=== PATIENT | male | born 1975 | race Caucasian/White ===

== ENCOUNTER 2021-04-03 10:41 | Outpatient (CLI) | payer BC, SELFPAY ==
--- NOTE | ~2021-04-03 | MR_ITS ---
EXAMINATION: MR knee RT wo con DATE: 04/03/2021 11:57 INDICATION: Right knee pain TECHNIQUE: Magnetic resonance imaging (MRI) of the right knee was performed without intravenous contr ast. Sequences included coronal PD-weighted FSE, coronal PD-weighted FS FSE, sagittal T2-weighted FS E, sagittal PD-weighted FS FSE and axial PD weighted fat saturated FSE. COMPARISON: None. FINDINGS: Medial compartment: Medial meniscus is normal. There is some superficial chondral irregularity along the weightbearing me dial femoral condyle. Partial thickness cartilage loss with smooth chondral surface along the posteri or aspect of the medial tibial plateau. Lateral compartment: Lateral meniscus is normal. Chondral surface regularity along the weightbearing lateral femoral condy le with partial thickness cartilage loss anteriorly. Shallow partial thickness chondral fissuring at the posterior aspect of the lateral tibial plateau. Patellofemoral compartment: Small region of partial-thickness chondral fissuring at the cephalad aspect of the trochlear groove a nd medial trochlea. Remaining cartilage is normal. Tiny marginal osteophytes are present. Ligaments and tendons: Posterior cruciate ligament is normal. Complete tear of the anterior cruciate ligament. The medial co llateral ligament and fibular collateral ligament complex are normal. The extensor mechanism is cristina l. The visualized medial and lateral hamstring tendons as well as the iliotibial band are normal. Fluid: Physiologic amount of fluid in the joint space. No loose osteochondral bodies identified. Osseous/other: Patchy red marrow reexpansion in the metaphyseal regions of the distal femur and proximal tibia and f ibula. Otherwise normal marrow signal with no fracture or pathologic marrow replacing process. IMPRESSION: 1. Complete anterior cruciate ligament tear. 2. Mild tricompartmental osteoarthritis with regions of shallow chondral fissuring/chondral surface i rregularity in all 3 compartments. Reviewed, dictated and finalized at location A. [facility] SE[facility]ETARY IMPRESSION: 1. Complete anterior cruciate ligament tear. 2. Mild tricompartmental osteoarthritis with regions of shallow chondral fissur ing/chondral surface irregularity in all 3 compartments.
== END 2021-04-03 10:42 | disposition home or self-care (01) ==
LOC: ANHIMG 10:47
PROVIDERS: PCP Emergency Medicine; Visit Provider Nurse Practitioner Family
DX: S83.511A Sprain of anterior cruciate ligament of right knee, initial encounter (principal); X58.XXXA Exposure to other specified factors, initial encounter; M17.11 Unilateral primary osteoarthritis, right knee
CPT/HCPCS: 73721

== ENCOUNTER 2021-09-11 10:33 | Outpatient (CLI) | payer BC, SELFPAY ==
--- NOTE | ~2021-09-11 | US_ITS ---
EXAMINATION: US thyroid DATE: 09/11/2021 11:33 INDICATION: Hypothyroidism. TECHNIQUE: Multiple ultrasound images of the thyroid were obtained. COMPARISON: None. FINDINGS: The right thyroid lobe measures 4.8 x 2.0 x 2.2 cm. The left thyroid lobe measures 3.4 x 1.6 x 1.4 c m. The thyroid demonstrates heterogeneous echogenicity. No discrete nodule. Vascularity is normal. IMPRESSION: 1. Heterogeneous thyroid, likely chronic lymphocytic (Jose Luis) thyroiditis. Reviewed, dictated and finalized at location B.
== END 2021-09-11 10:34 | disposition home or self-care (01) ==
PROVIDERS: PCP Emergency Medicine; Visit Provider Emergency Medicine
DX: E03.9 Hypothyroidism, unspecified (principal)
CPT/HCPCS: 76536

== ENCOUNTER 2021-10-31 11:25 | Inpatient (IN) | payer BC, SELFPAY ==
[2021-10-31] VITALS (13 sets, daily range): BP systolic 129–155; BP diastolic 74–97; PULSE 78–108; RESP 18–26; TEMP 36.7; O2SAT 89–100
--- NOTE | ~2021-10-31 | CT_ITS ---
EXAMINATION: CTA chest PE protocol DATE: 10/31/2021 16:03 INDICATION: Elevated d-dimer. Shortness of breath for one month. TECHNIQUE: Computed tomography angiography (CTA) of the chest was performed with 100 mL Omnipaque-350 intravenous contrast timed to evaluate the pulmonary arteries. Coronal maximum intensity projection 3D-reconstructions were created by the technologist. Automated exposure control and iterative reconst ruction technique were employed. Exam dose: 1112.15 mGy-cm total exam DLP. COMPARISON: 10/31/2021 AP and lateral chest FINDINGS: Soft tissue tissue and bone detail is limited by body habitus. There is moderate opacification of the pulmonary arteries and no apparent pulmonary embolism. No hilar or mediastinal mass lesion or lymphadenopathy. No thoracic aortic aneurysm or dissection is evident Cardiomegaly. No pericardial or pleural effusion. Minimal atelectasis in the lower lung zones, primarily on the left Normal morphology of the adrenal glands. No suspicious osteolytic or osteoblastic lesions. IMPRESSION: No pulmonary embolism is detected Cardiomegaly Reviewed, dictated and finalized at Location A. Reviewed, dictated and finalized at location A.
--- NOTE | ~2021-10-31 | XR_ITS ---
EXAMINATION: XR chest 2V DATE: 10/31/2021 12:29 INDICATION: Shortness of breath. TECHNIQUE: Frontal and lateral views of the chest were obtained on 3 radiographs. COMPARISON: Chest 2 views 07/31/2016, CT abdomen 01/14/2018 FINDINGS: Sensitivity is decreased by obesity. There is no pneumonia, pleural effusion, or pneumothor ax. The heart size is normal. Mediastinal lipomatosis is noted. IMPRESSION: 1. No acute cardiopulmonary disease. Reviewed, dictated and finalized at location A.
--- NOTE | ~2021-10-31 | US_ITS ---
EXAMINATION: US venous doppler [facility] DATE: 10/31/2021 15:14 INDICATION: Bilateral lower limb pain and swelling TECHNIQUE: Armas scale images without and with compression and Doppler images of the bilateral lower e xtremity veins were obtained. COMPARISON: None FINDINGS: The right common femoral vein, profunda femoral vein, femoral vein, popliteal vein, posterior tibial veins, and greater saphenous vein are patent. The peroneal veins are not well demonstrated due to bod y habitus. The left common femoral vein, profunda femoral vein, femoral vein, popliteal vein, posterior tibial v eins, and greater saphenous vein are patent. The peroneal veins are not well demonstrated due to body habitus. IMPRESSION: 1. Patent bilateral lower extremity veins. No evidence of deep venous thrombosis. Bilateral peroneal veins not evaluated due to body habitus. Reviewed, dictated and finalized at location F. IMPRESSION: 1. Patent bilateral lower extremity veins. No evidence of deep venous thrombosi s. Bilateral peroneal veins not evaluated due to body habitus.
--- NOTE | 2021-10-31 11:30 | ECG_ITS ---
Measurements Intervals [place] Rate: 88 P: 64 OR: 211 QRS: 14 QRSD: 106 T: 47 QT: 360 QTc: 437 Interpretive Statements SINUS RHYTHM WITH FIRST DEGREE AV BLOCK LEFTWARD AXIS LOW QRS VOLTAGE IN PRECORDIAL LEADS [QRS DEFLECTION < 1.0 mV IN CHEST LEADS] ABNORMAL ECG NO PREVIOUS ECG AVAILABLE FOR COMPARISON Electronically Signed On 11-01-2021 16:25:44 CDT by Deandre Andres M.D.
--- NOTE | 2021-10-31 12:08 | ED.SOB ---
HPI - SOB/Dyspnea General Chief Complaint: Shortness of Breath/Dyspnea Stated Complaint: retaining water Time Seen by Provider: 10/31/21 11:58 History of Present Illness HPI Narrative: The patient is a 46-year-old male with a history of type 2 diabetes, hypothyroidism, hypertension, morbid obesity, LEA presenting to the emergency department for evaluation of shortness of breath at rest. Patient reports significant lower extremity edema and reports that he feels loaded with fluid. Patient denies any chest pain, he does report mild congestion and nonproductive cough. He denies hemoptysis. He denies nausea, vomiting or abdominal pain. He does report abdominal distention. Patient reports his dyspnea worsens with exertion. He denies fever, chills, sore throat, recent sick contacts. He denies known history of COVID infection. Pt does sleep with CPAP at night and has been utilizing that. He has been compliant with his medications. He denies recent long car or air travel. He denies history of blood clot. No recent surgery or immobility. Related Data Home Medications Medication Instructions Recorded Confirmed atorvastatin 40 mg tablet 40 mg PO DAILY 02/11/21 08/29/21 metformin 500 mg tablet 500 mg PO DAILY 02/11/21 08/29/21 metoprolol tartrate 50 mg tablet 50 mg PO DAILY 02/11/21 08/29/21 Allergies Allergy/AdvReac Type Severity Reaction Status Date / Time No Known Drug Allergies Allergy Unknown Unknown Verified 08/29/21 11:02 Review of Systems Review of Systems: CONSTITUTIONAL: Denies fever, chills, or sweats. EYES: Denies visual changes, redness, or discharge. ENT: Denies rhinorrhea, congestion, sore throat, or otalgia. CARDIOVASCULAR: Denies chest pain, palpitations, reports bilateral lower extremity edema RESPIRATORY:Reports cough and dyspnea GASTROINTESTINAL: Denies abdominal pain, nausea, vomiting, or diarrhea. GENITOURINARY: Denies dysuria or hematuria. SKIN: Denies rash or itching. MUSCULOSKELETAL: Denies back pain, joint pain, or myalgia. NEUROLOGIC: Denies headache, numbness, or weakness. [facility] Past Medical History Medical History Bilateral knee pain BMI greater than 40 HLD (hyperlipidemia) HTN (hypertension) Left knee DJD Right knee DJD Right knee pain SOB (shortness of breath) Weight gain Surgical History Surgical History History of eye surgery Family History Family History Unknown Hypertension HLD (hyperlipidemia) Social History Social History Second hand tobacco smoke exposure: No Alcohol intake: never Exam Narrative: GENERAL: Awake, alert, able to converse in short sentences HEAD: Normocephalic, atraumatic. EYES: 2+ PERRLA and EOMI. ENT: Nares clear, no rhinorrhea or epistaxis. Mucous membranes moist. NECK: Supple. CHEST: Tachypneic, shallow respirations, crackles bilateral lobes, poor aeration bilaterally HEART: Regular rate, sinus rhythm ABDOMEN: Distention with edema of the abdominal wall EXTREMITIES: Normal range of motion. Bilateral lower extremity pitting edema 3+ up to the thighs SKIN: Warm, dry, no rash. NEURO:No focal deficits. Alert and oriented x3 Course Vital Signs Vital signs: Vital Signs Pulse Oximetry 95 10/31/21 12:31 Temperature 36.7 C 10/31/21 12:35 Pulse Rate 84 10/31/21 15:45 Respiratory Rate 21 H 10/31/21 15:45 Blood Pressure 145/94 H 10/31/21 12:46 Pulse Oximetry 98 10/31/21 15:45 Oxygen Delivery BiPAP 10/31/21 15:45 MDM - SOB/Dyspnea MDM Narrative Medical decision making narrative: Patient presented to the emergency department for evaluation of shortness of breath and concern for fluid overload given bilateral lower extremity edema that extends into the abdomen. Patient was noted to have oxygen satu
[2021-10-31 12:36] LABS: Base Excess ABG 2.6 mEq/l (+/-2.0); Carboxyhemoglobin 1.8 % THb (0-2.0); Fractional Inspired Oxygen 28 %; HCO3 ABG 31.5 mEq/l (22.0-26.0); Methemoglobin ABG 0.2 %THb (0-1.5); Oxygen Content ABG 19.9 %vol (16.0-22.0); Oxygen Saturation ABG 93.5 % (95.0-100.0); Oxyhemoglobin 92.4 % THb (90.0-100.0); PO2 ABG 77.1 mmHg (80.0-100.0); PO2 FiO2 Ratio Arterial Blood 2.75 %; Reduced Hemoglobin 5.6 %THb (0-5.0); Total Hemoglobin 15.3 g/dL (12.0-18.0)
[2021-10-31 12:37] LABS: Device NASAL CANNULA; Modified Allen's Test Pass; PCO2 ABG 67.4 mmHg (35.0-45.0); Site Drawn RIGHT RADIAL; pH ABG 7.287 (7.350-7.450)
[2021-10-31 13:38] LABS: Basophils Absolute Auto 0.1 K/mm3 (0.0-0.1); Basophils Percent Auto 0.6 % (0.2-1.2); Eosinophils Absolute Auto 0.2 K/mm3 (0-0.3); Eosinophils Percent Auto 2.4 % (0-4.4); Hemoglobin 14.3 g/dL (14.0-18.0); Immature Granulocyte Absolute 0.03 K/mm3 (0.00-0.031); Immature Granulocyte Percent A 0.3 % (0-0.5); Lymphocytes Absolute Auto 1.71 K/mm3 (0.9-3.2); Lymphocytes Percent Auto 17.5 % (18.3-44.2); Mean Corpuscular HGB Conc 30.4 g/dl (32-36); Mean Corpuscular Hemoglobin 28.1 pg (26-34); Mean Corpuscular Volume 92.5 fl (80-100); Mean Platelet Volume 10.1 fl (7.4-10.4); Monocytes Percent Auto 10.2 % (2.6-8.5); Neutrophils Absolute Auto 6.8 K/mm3 (1.3-6.7); Platelet Count Result 272 k/mm3 (150-375); Red Blood Count 5.08 M/mm3 (4.6-6.20); Red Cell Distribution Width 15.7 % (11.5-14.5); White Blood Count 9.8 K/mm3 (4.5-10.0)
[2021-10-31 13:45] LABS: SARS-CoV-2 RNA PCR Negative
[2021-10-31 13:47] LABS: Lactic Acid Reflex 1.4 mmol/L (0.7-2.0)
[2021-10-31 13:50] LABS: Alanine Aminotransferase 27 U/L (6-50); Albumin Level 3.8 g/dL (3.5-5.1); Alkaline Phosphatase 95 U/L (38-126); Anion Gap 5 mmol/L (8-16); Aspartate Amino Transferase 28 U/L (17-59); Bilirubin,Total 0.3 mg/dL (0.2-1.3); Blood Urea Nitrogen 10 mg/dL (9-20); Carbon Dioxide 32 mmol/L (22-30); Chloride 101 mmol/L (98-107); Estimated CRCL calculation 204 ml/min; Estimated Glomerular Filt Rate > 60; Glucose 101 mg/dL (65-110); Potassium 4.4 mmol/L (3.4-5.0); Sodium 138 mmol/L (137-145)
[2021-10-31 14:02] LABS: NT Pro B Type Natriuretic Pept 951 pg/mL (5-100); Troponin I < 0.012 ng/mL (0.000-0.034)
[2021-10-31] MEDS: FUROSEMIDE INJ 40 MG/4 ML VIAL 20 MG IV PUSH ×2 (15:03→23:04)
[2021-10-31 15:10] LABS: D Dimer 1.47 ug/mL (<0.48)
[2021-10-31 15:29] LABS: Alveolar/Arterial O2 Gradient 89.7 mmHg; Base Excess ABG 2.9 mEq/l (+/-2.0); Carboxyhemoglobin 1.7 % THb (0-2.0); Fractional Inspired Oxygen 32 %; HCO3 ABG 30.2 mEq/l (22.0-26.0); Methemoglobin ABG 0.2 %THb (0-1.5); Oxygen Saturation ABG 93.3 % (95.0-100.0); Oxyhemoglobin 92.2 % THb (90.0-100.0); PO2 ABG 71.8 mmHg (80.0-100.0); PO2 FiO2 Ratio Arterial Blood 2.24 %; Reduced Hemoglobin 5.9 %THb (0-5.0); Total Hemoglobin 15.4 g/dL (12.0-18.0); pH ABG 7.342 (7.350-7.450)
[2021-10-31 15:30] LABS: Device NASAL CANNULA; Modified Allen's Test Pass; Site Drawn RIGHT RADIAL
[2021-10-31 17:24] LABS: Troponin I < 0.012 ng/mL (0.000-0.034)
--- NOTE | 2021-10-31 17:25 | PM.IMHP ---
H&P: HPI History of Present Illness Date/Time: 10/31/21 17:25 Chief Complaint: Shortness of breath and leg swelling. Narrative: This is a very pleasant 46-year-old male with hypertension, hyperlipidemia, hypothyroidism, sleep apnea, and prediabetes presented to the emergency department from home for evaluation shortness of breath and leg swelling. He has had problems with his weight for almost 10 years although it has not really limited his daily activities until the last 6 months. 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 Over the past 1 month he has developed orthopnea and pitting edema into the abdomen and he also reports daytime somnolence, vivid dreams, and occasional fogginess though no overt confusion. He falls asleep with his CPAP on however sometime during the middle the night he ends up taking it off due to claustrophobia and anxiety. On arrival to the ER, his SpO2 was 89% on room air. ABG showed a pH of 7.287 a pCO2 of 67.4 for which he was started on BiPAP, with improvement in his blood gases. At the time of my evaluation he is sitting up eating dinner and is feeling a bit better. He has no complaints at this time. Review of Systems Review of Systems: Twelve systems were reviewed. No fever, chills, or sweats. No recent cold or flu symptoms. No cough or wheeze. No known history of cardiovascular or pulmonary disease. No history of venous thromboembolism. He was recently started on glimepiride though to his knowledge he is still classified as a prediabetic. He does not check his glucose often at home but he has never seen a number over 200. No blurry vision, polydipsia, or polyuria. Except as documented, all other systems were reviewed and are negative. [facility] Past Medical History Medical History (Updated 10/31/21 @ 20:57 by Mariely Anthony PA-C) Degenerative joint disease of knee Hyperlipidemia Hypertension Hypothyroidism Obstructive sleep apnea on CPAP Prediabetes Surgical History Surgical History (Updated 10/31/21 @ 20:53 by Mariely Anthony PA-C) History of myringoplasty History of plastic surgery Repair right orbital fracture. Family History Family History Unknown Hypertension HLD (hyperlipidemia) Social History Social History (Updated 10/31/21 @ 20:54 by Mariely Anthony PA-C) Social History: Surrogate decision maker: Shirley Price, mother. Code status: Full code. Smoking status: Never smoker Second hand tobacco smoke exposure: Yes Alcohol intake: never Substance use type: does not use Additional living arrangements comments: Lives in [place]. Mother lives at home with him. Additional occupation/education comments: [employer]. Spiritual care concerns: No Meds Home Medications and Allergies Home Medications Medication Instructions Recorded Confirmed Type metformin 500 mg tablet 1,000 mg PO BIDWM 02/11/21 10/31/21 History metoprolol tartrate 50 mg tablet 50 mg PO BIDWM 02/11/21 10/31/21 History glimepiride 1 mg tablet (Amaryl) 1 mg PO DAILY 10/31/21 10/31/21 History irbesartan 150 mg tablet 150 mg PO DAILY 10/31/21 10/31/21 History levothyroxine 25 mcg tablet 75 mcg PO DAILY 10/31/21 10/31/21 History rosuvastatin 20 mg tablet 20 mg PO DAILY 10/31/21 10/31/21 History Allergies Allergy/AdvReac Type Severity Reaction Status Date / Time No Known Drug Allergies Allergy Unknown Unknown Verified 08/29/21 11:02 Vital Signs Vital Signs - 24 hr 10/31/21 12:35 10/31/21 12:31 10/31/21 12:35 Temperature 98.0 F Pulse Rate 95 Respiratory Rate 20 Blood Pressure 155/97 H 155/97 H Pulse Oximetry 89 L 95 95 Oxygen Delivery Room Air 10/31/21 12:45 10/31/21 12:46 10/31/21 13:00 Temperature Pulse Rate 78 88 Respiratory Rate
[2021-10-31 20:44] LABS: Troponin I < 0.012 ng/mL (0.000-0.034)
[2021-11-01] VITALS (18 sets, daily range): BP systolic 105–144; BP diastolic 50–97; PULSE 84–107; RESP 16–21; TEMP 36.4–37.2; O2SAT 86–97
[2021-11-01 04:46] LABS: Hemoglobin A1C 7.3 % (<5.7)
[2021-11-01 05:19] LABS: Alveolar/Arterial O2 Gradient 57.4 mmHg; Base Excess ABG 5.3 mEq/l (+/-2.0); Carboxyhemoglobin 1.9 % THb (0-2.0); Fractional Inspired Oxygen 32 %; Methemoglobin ABG 0.3 %THb (0-1.5); Oxygen Content ABG 19.4 %vol (16.0-22.0); Oxygen Saturation ABG 90.9 % (95.0-100.0); PO2 ABG 71.8 mmHg (80.0-100.0); PO2 FiO2 Ratio Arterial Blood 2.24 %; Reduced Hemoglobin 7.8 %THb (0-5.0); Total Hemoglobin 15.3 g/dL (12.0-18.0)
[2021-11-01 05:21] LABS: Device NASAL CANNULA; Modified Allen's Test Pass; PCO2 ABG 84.6 mmHg (35.0-45.0); Site Drawn LEFT RADIAL; pH ABG 7.247 (7.350-7.450)
--- NOTE | 2021-11-01 05:30 | PC.NURSE ---
pt. has only worn bipap for three hours tonight. pt. states he can not tolerate the bipap any longer. rn and rt both have talked to the pt. several times about the importance of wearing the bipap. Dr. Campo and Mariely haynes also notified of pt's refusal to wear bipap. pt. also stated that he can not tolerate to wear his cpap at home.
[2021-11-01 05:43] LABS: Anion Gap 2 mmol/L (8-16); Blood Urea Nitrogen 10 mg/dL (9-20); Calcium 8.3 mg/dL (8.4-10.2); Carbon Dioxide 39 mmol/L (22-30); Chloride 98 mmol/L (98-107); Estimated CRCL calculation 180 ml/min; Estimated Glomerular Filt Rate > 60; Glucose 125 mg/dL (65-110); Magnesium 1.9 mg/dL (1.6-2.3); Potassium 4.3 mmol/L (3.4-5.0); Sodium 139 mmol/L (137-145)
--- NOTE | 2021-11-01 06:00 | ECHO_ITS ---
Patient Info Name: Riaz Morgan Age: 46 years : 1975 Gender: Male Ht: 68 in Wt: 472 lbs BSA: 3.35 m2 HR: 102 bpm BP: 134 / 71 mmHg Heart Rhythm: Sinus Rhythm Exam Date: 11/01/2021 7:35 AM Exam Location: [facility] Patient Status: Inpatient Admit Date: 10/31/2021 Staff Ordering Physician: Marissa Tapia MD Check Embosser: Jewel Dodson, SIMON, RT Attending Provider: Jen Fenton MD Referring Physician: Willie NYE; Exam Type: CA echo dop color flow w con Study Info Indications J96.91 - Respiratory failure, unspecified with hypoxia Complete two-dimensional, color flow and Doppler transthoracic echocardiogram is performed with contrast to opacify the left ventricle and to improve the deliniation of the left ventricle endocardial borders. Summary 1. Technically difficult echocardiogram with poor image quality even after contrast was injected. 2. Grossly normal left ventricular size and systolic contractility as judged imaging following contrast injection. 3. Poorly visualized cardiac valves but no Doppler regurgitant lesions were seen. 4. Grossly normal right ventricular size and systolic function again poorly visualized. Left Ventricle Left ventricular chamber dimension is normal. Left ventricular systolic function is normal, estimated at 55-60%. The left ventricular diastolic function is grade I diastolic dysfunction. Right Ventricle Right ventricular chamber dimension is normal. Left Atria Left atrial chamber dimension is normal. Right Atria Right atrial chamber dimension is not well visualized. Aortic Valve The aortic valve is not well visualized. There is no aortic valve stenosis. Pulmonic Valve The pulmonic valve is not well visualized. Mitral Valve The mitral valve has normal leaflets. There is no mitral valve regurgitation. Tricuspid Valve The tricuspid valve leaflets are not well visualized. Pericardium/Pleural The pericardium appears normal. Aorta The aortic root size at the sinus of Valsalva is normal. Left Ventricular Outflow Tract Name Value Normal LVOT 2D LVOT Diameter 2.14 cm LVOT Doppler LVOT Peak Gradient 3 mmHg LVOT Mean Gradient 1 mmHg LVOT VTI 13.94 cm LVOT VTI/AV VTI Ratio 0.79 LVOT Stroke Volume 50.05 ml LVOT CO 5.62 l/min LVOT CI 1.68 L/min/m2 Mitral Valve Name Value Normal MV Doppler MV Decel [place] 366.10 cm/s2 MV PHT 0 s MV Area (PHT) 3.61 cm2 4.00-5.00 MV Diastolic Function MV E Peak Velocity 76.
[2021-11-01] MEDS: LEVOTHYROXINE SODIUM 75 MCG TABLET PO (06:08)
[2021-11-01] MEDS: PERFLUTREN LIPID MICROSPHERES 1.5 ML VIAL DILUTED TO 10 ML TOTAL VOLUME IV PUSH (08:06)
--- NOTE | 2021-11-01 08:07 | IVDEFINITY ---
Prior to administration of IV Definity the patient was educated on the risks and benefits of the imaging enhancing agent including potential adverse side effects. The patient verbalized understanding. Allergies were verified. No exclusion criteria were identified and at least one of the following inclusion criteria were met: 1) physician request, 2) patient technically difficult to image (per the [place] [employer] Echocardi[employer] guidelines of two or more segments not discernable within the apical view), or 3) questionable left ventricular function. ?
[2021-11-01 08:16] LABS: Glucose Point of Care 118 mg/dl (65-105)
--- NOTE | 2021-11-01 08:17 | PM.IMPN ---
Progress Note: A&P Assessment and Plan (1) Acute respiratory failure with hypoxia and hypercarbia: Code(s): J96.01 - Acute respiratory failure with hypoxia; J96.02 - Acute respiratory failure with hypercapnia Status: Acute Assessment and Plan: Likely due to volume overload, untreated LEA and obesity hypoventilation. CTA chest negative for PE. BNP elevated 951. Will treat volume overload to improve breathing. I/O not being recorded. -Demar for accurate I&Os -Continue furosemide 20 mg IV BID -Appreciate recommendations from Pulmonology - Dr. Schofield -Eleuterio leary -Continue bipap at night -Wean oxygen as tolerated during the day (2) (HFpEF) heart failure with preserved ejection fraction: Code(s): I50.30 - Unspecified diastolic (congestive) heart failure Status: Acute Assessment and Plan: Volume overload. Already on BB and ARB. (3) Obesity hypoventilation syndrome: Code(s): E66.2 - Morbid (severe) obesity with alveolar hypoventilation Status: Acute Assessment and Plan: Management as noted above. (4) Hypothyroidism: Code(s): E03.9 - Hypothyroidism, unspecified Status: Acute Assessment and Plan: TSH 5. Will check free t4. Continue home levothyroxine. (5) Hypertension: Code(s): I10 - Essential (primary) hypertension Status: Acute Assessment and Plan: Continue metoprolol and irbesartan. (6) Hyperlipidemia: Code(s): E78.5 - Hyperlipidemia, unspecified Status: Acute Assessment and Plan: Continue rosuvastatin. (7) Diabetes: Code(s): E11.9 - Type 2 diabetes mellitus without complications Status: Acute Assessment and Plan: New onset. Previously had prediabetes per patient. A1C 7.3. May benefit from SGLT2 to be started. For now holding metformin x 48 hours because of CTA but will resume. -SSI w/ POC glucose Subjective Date/time seen: 11/01/21 08:17 Patient says he has noticed he feels like he is wearing a pair of pants 4-5 sizes too small saying his legs feel very tight and swollen. Says he was told he has prediabetes and was on medication for this. Says the doctor told him not to use furosemide because it might cause his prediabetes to become diabetes, which is why furosemide was not started at his last PCP visit about two weeks ago. Patient says he has shortness of breath as well but reports this has improved with adjustment of the BIPAP. Review of Systems Cardiovascular: Cardiovascular: Reports leg edema Respiratory: Respiratory: Reports dyspnea Exam Narrative: GENERAL: NAD, cooperative HEENT: Normocephalic, atraumatic, anicteric NECK:Supple CV: Normal S1, S2, RRR, No MRG RESP: Bibasilar crackles - distant breath sounds Abdomen: Soft, non-tender, non-distended, EXTREMITIES: Warm and well perfused, no clubbing, cyanosis. Tense edema to bilateral LE. SKIN: warm, dry and intact. NEURO: CN 2-12 grossly intact Objective Data Vital Signs Vital Signs: Vital Signs - 24 hr 10/31/21 12:35 10/31/21 12:31 10/31/21 12:35 Temperature 98.0 F Pulse Rate 95 Respiratory Rate 20 Blood Pressure 155/97 H 155/97 H Pulse Oximetry 89 L 95 95 Oxygen Delivery Room Air Oxygen Flow Rate 10/31/21 12:45 10/31/21 12:46 10/31/21 13:00 Temperature Pulse Rate 78 88 Respiratory Rate 18 20 26 H Blood Pressure 145/94 H Pulse Oximetry 95 92 98 Oxygen Delivery BiPAP Oxygen Flow Rate 10/31/21 15:45 10/31/21 18:00 10/31/21 16:50 Temperature Pulse Rate 84 98 Respiratory Rate 21 H Blood Pressure Pulse Oximetry 98 98 Oxygen Delivery BiPAP Nasal Cannula Oxygen Flow Rate 3 10/31/21 16:54 10/31/21 20:00 10/31/21 20:00 Temperature 98.0 F Pulse Rate 96 95 96 Respiratory Rate 20 Blood Pressure 155/84 H Pulse Oximetry 100 Oxygen Delivery Oxygen Flow Rate 10/31/21 20:00 10/31/21 22:00 10/31/21 22:30 Te
[2021-11-01 09:46] LABS: Free T4 Free Thyroxine 1.05 ng/mL (0.78-2.19)
[2021-11-01] MEDS: IRBESARTAN 150 MG TABLET PO (10:43)
[2021-11-01] MEDS: ROSUVASTATIN 10 MG TABLET 20 MG PO (10:44)
[2021-11-01] MEDS: GLIMEPIRIDE 1 MG TABLET PO (10:44)
[2021-11-01] MEDS: METOPROLOL TARTRATE 50 MG TAB PO ×2 (10:45→17:50)
[2021-11-01] MEDS: ENOXAPARIN 40 MG/0.4 ML SYRINGE SUB-Q (10:45)
[2021-11-01] MEDS: FUROSEMIDE INJ 40 MG/4 ML VIAL 20 MG IV PUSH ×2 (10:46→17:49)
[2021-11-01 12:01] LABS: Glucose Point of Care 166 mg/dl (65-105)
--- NOTE | 2021-11-01 12:11 | PM.CNPUL ---
Assessment and Plan Assessment and plan (1) Obesity hypoventilation syndrome: Code(s): E66.2 - Morbid (severe) obesity with alveolar hypoventilation Status: Acute Assessment and Plan: Patient is morbidly obese with a BMI of 71.7, he has a daytime blood gas of 7.29// on 2 L nasal cannula serum bicarbonate of 32. He has obesity hypoventilation syndrome. There is no evidence of concurrent COPD, pneumonia, pulmonary edema. His TSH is elevated I will check a free T4 he is already on Synthroid. Patient would benefit from noninvasive ventilation to prevent further deterioration and prevent hospitalization in the future. He could not tolerate BiPAP as said he had to take the machine off. He tells me the BiPAP was uncomfortable and I placed him on a noninvasive ventilator with AVAPS mode and adjusted his settings to comfort. I ended up using AVAPS rate of 16, tidal volume 500, EPAP 8, minimal inspiratory pressure 9, maximal inspiratory pressure 25, inspiratory time 1.2, rise a 5 [address] and 30%. This resulted in tidal volumes of 537 and a peak inspiratory pressure of 11. I have initiated home noninvasive ventilation with an AVAPS mode with the career development coordinator. I will place him on hospital settings using those listed above or home unit and check an overnight oximetry and a blood gas prior to removal to assess his oxygenation and ventilation. Agree with aggressively diuresing patient with IV Lasix as tolerated by his cardiac and renal systems. Discussed with Dr. Eller. Will follow with you. History of Present Illness History of Present Illness Consult date: 11/01/21 Chief complaint: Hypoxic Respiratory Failure Narrative: 11/01/2021: This is a new pulmonary consult for acute on chronic hypoxic and hypercarbic respiratory failure. 46-year-old man with morbid obesity (BMI 71.7), Obstructive sleep apnea on CPAP, hypothyroidism, diabetes, hypertension who presented to [facility] on 10/31/2021 with 2 months worsening edema and one-month worsening dyspnea on exertion. the patient tells me that he was diagnosed with obstructive sleep apnea with a home sleep study approximately 2 years ago through his primary physician Dr. Danilo capellan. He states that he does wear the machine but does not know his settings. His DME company is [employer]. At times he is intolerant to the machine and He cannot sleep with the machine on. He uses a fullface mask. at times he has run out of supplies and been unable to replace his. Patient has noted increasing lower extremity and abdominal wall edema over the last 2 months and he tells me over the last month he has worsening dyspnea on exertion. He denies any fever, chills, cough, rigors, phlegm production, hemoptysis or chest pain. The patient presented to the emergency department and had a white blood cell countof 9.8, creatinine of 0.7, troponins negative x3, BNP 951, TSH 5.39, D-dimer of 1.47, chest x-ray with no active disease. CT angiogram of the chest with no PE but cardiomegaly. Patient is COVID RT PCR test was negative. Patient had lower extremity Dopplers which were negative. Patient's initial blood gas on 2 L nasal cannula 7.29/67/77 and his serum bicarbonate was 32. Repeat blood gas on 3 L nasal cannula with a pH of 7.34/57/72. patient was empirically placed on BiPAP 15/5 any wore that for few hours. Repeat blood gas this morning on 3 L nasal cannula 7.25/85/72. I was consulted. Patient tells me he has never tobacco user. He is exposed to secondhand smoke through his mother. He does not smoke marijuana but occasionally takes gummy bears for the last 1 and half months for his chronic knee pain. 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 Patient did work in [place] in the [employer] and was exposed to some dust. 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
--- NOTE | 2021-11-01 14:24 | PCRCNOTE ---
Trilogy unit being arranged with [facility] [phone]. Device to be set-up this evening at the hospital.
[2021-11-01 16:21] LABS: Glucose Point of Care 155 mg/dl (65-105)
[2021-11-01 19:58] LABS: Glucose Point of Care 136 mg/dl (65-105)
[2021-11-01] MEDS: ACETAMINOPHEN/ASPIRIN/CAFFEINE 250-250-65 MG TABLET 1 TABLET PO (21:55)
--- NOTE | 2021-11-01 22:32 | PC.NURSE ---
Pt set up with trilogy unit with 2?L O2 bleed in per RT. RT set up on apnea link study.
[2021-11-02] VITALS (19 sets, daily range): BP systolic 107–142; BP diastolic 41–79; PULSE 87–105; RESP 18–28; TEMP 36.5–37; O2SAT 86–98
[2021-11-02 05:16] LABS: Alveolar/Arterial O2 Gradient 64.6 mmHg; Base Excess ABG 10.7 mEq/l (+/-2.0); Fractional Inspired Oxygen 30 %; HCO3 ABG 39.2 mEq/l (22.0-26.0); Oxygen Content ABG 19.5 %vol (16.0-22.0); Oxygen Saturation ABG 92.2 % (95.0-100.0); Oxyhemoglobin 91.1 % THb (90.0-100.0); PO2 ABG 67.5 mmHg (80.0-100.0); PO2 FiO2 Ratio Arterial Blood 2.25 %; Total Hemoglobin 15.2 g/dL (12.0-18.0); pH ABG 7.369 (7.350-7.450)
[2021-11-02 05:18] LABS: Modified Allen's Test Pass; PCO2 ABG 69.6 mmHg (35.0-45.0); Site Drawn RIGHT RADIAL
[2021-11-02 05:19] LABS: Non-Invasive Vent Rate 16 /MIN
[2021-11-02 05:20] LABS: Non-Invasive Expiratory Pressure 8 CMH2O
[2021-11-02 05:22] LABS: Device NON-INVASIVE VENT
[2021-11-02] MEDS: LEVOTHYROXINE SODIUM 75 MCG TABLET PO (06:10)
[2021-11-02] MEDS: FUROSEMIDE INJ 40 MG/4 ML VIAL 20 MG IV PUSH ×2 (08:22→17:31)
[2021-11-02] MEDS: ENOXAPARIN 40 MG/0.4 ML SYRINGE SUB-Q (08:23)
[2021-11-02] MEDS: METOPROLOL TARTRATE 50 MG TAB PO ×2 (08:24→17:30)
[2021-11-02] MEDS: ROSUVASTATIN 10 MG TABLET 20 MG PO (08:24)
[2021-11-02] MEDS: GLIMEPIRIDE 1 MG TABLET PO (08:24)
[2021-11-02] MEDS: IRBESARTAN 150 MG TABLET PO (08:25)
--- NOTE | 2021-11-02 08:37 | PM.IMPN ---
Progress Note: A&P Assessment and Plan (1) Acute respiratory failure with hypoxia and hypercarbia: Code(s): J96.01 - Acute respiratory failure with hypoxia; J96.02 - Acute respiratory failure with hypercapnia Status: Acute Assessment and Plan: Likely due to volume overload, untreated LEA and obesity hypoventilation. CTA chest negative for PE. BNP elevated 951. Will treat volume overload to improve breathing. I/O not being recorded. Significant UOP yesterday with improvement in exam, but I&Os are positive. Will add a 1.2L fluid restriction today. Clinically improved. -Demar for accurate I&Os -Continue furosemide 20 mg IV BID -Appreciate recommendations from Pulmonology - Dr. Schofield -Eleuterio leary -Continue bipap at night -Wean oxygen as tolerated during the day (2) (HFpEF) heart failure with preserved ejection fraction: Code(s): I50.30 - Unspecified diastolic (congestive) heart failure Status: Acute Assessment and Plan: Volume overload. Already on BB and ARB. Volume overload is improving with diuresis. Will continue with furosemide. (3) Obesity hypoventilation syndrome: Code(s): E66.2 - Morbid (severe) obesity with alveolar hypoventilation Status: Acute Assessment and Plan: Management as noted above. (4) Hypothyroidism: Code(s): E03.9 - Hypothyroidism, unspecified Status: Acute Assessment and Plan: TSH 5. Free t4 1.05. Continue home medication. (5) Hypertension: Code(s): I10 - Essential (primary) hypertension Status: Acute Assessment and Plan: Continue metoprolol and irbesartan. (6) Hyperlipidemia: Code(s): E78.5 - Hyperlipidemia, unspecified Status: Acute Assessment and Plan: Continue rosuvastatin. (7) Diabetes: Code(s): E11.9 - Type 2 diabetes mellitus without complications Status: Acute Assessment and Plan: New onset. Previously had prediabetes per patient. A1C 7.3. May benefit from SGLT2 to be started. For now holding metformin x 48 hours because of CTA but will resume. -SSI w/ POC glucose -informatics educator ordered Subjective Date/time seen: 11/02/21 08:37 Patient says he breathing is better this morning. Also says he can now see wrinkles in his feet and feels that his leg and foot swelling have improved. Benz placed for I&Os last night Exam Narrative: GENERAL: NAD, cooperative HEENT: Normocephalic, atraumatic, anicteric NECK:Supple CV: Normal S1, S2, RRR, No MRG RESP: Clear to auscultation bilaterally, distant breath sounds Abdomen: Soft, non-tender, non-distended, EXTREMITIES: Warm and well perfused, no clubbing, cyanosis. Less bilateral ankle edema. SKIN: warm, dry and intact. NEURO: CN 2-12 grossly intact Objective Data Vital Signs Vital Signs: Vital Signs - 24 hr 11/01/21 10:45 11/01/21 12:00 11/01/21 12:00 Temperature 97.6 F Pulse Rate 105 H 92 Respiratory Rate 16 Blood Pressure 136/81 Pulse Oximetry 93 94 Oxygen Delivery Nasal Cannula Oxygen Flow Rate 5 11/01/21 10:00 11/01/21 12:00 11/01/21 14:00 Temperature Pulse Rate 92 84 90 Respiratory Rate Blood Pressure Pulse Oximetry Oxygen Delivery Oxygen Flow Rate 11/01/21 16:00 11/01/21 17:50 11/01/21 16:00 Temperature 98.9 F Pulse Rate 95 96 Respiratory Rate 17 Blood Pressure 120/64 Pulse Oximetry 91 96 Oxygen Delivery BiPAP Oxygen Flow Rate 50 11/01/21 16:00 11/01/21 18:00 11/01/21 20:00 Temperature 98.6 F Pulse Rate 97 86 89 Respiratory Rate 18 Blood Pressure 116/68 Pulse Oximetry 96 Oxygen Delivery Oxygen Flow Rate 11/01/21 20:00 11/01/21 20:00 11/01/21 21:31 Temperature Pulse Rate 89 93 96 Respiratory Rate 18 Blood Pressure Pulse Oximetry 96 Oxygen Delivery Nasal Cannula Oxygen Flow Rate 4 11/01/21 22:48 11/02/21 00:00 11/02/21 00:00 Temperature
--- NOTE | 2021-11-02 09:29 | PM.PNPUL ---
Progress Note: A&P Assessment and Plan (1) Obesity hypoventilation syndrome: Code(s): E66.2 - Morbid (severe) obesity with alveolar hypoventilation Status: Acute Assessment and Plan: 11/01 Patient is morbidly obese with a BMI of 71.7, he has a daytime blood gas of 7.29/67/77 on 2 L nasal cannula serum bicarbonate of 32. He has obesity hypoventilation syndrome. There is no evidence of concurrent COPD, pneumonia, pulmonary edema. His TSH is elevated I will check a free T4 he is already on Synthroid. Patient would benefit from noninvasive ventilation to prevent further deterioration and prevent hospitalization in the future. He could not tolerate BiPAP as said he had to take the machine off. He tells me the BiPAP was uncomfortable and I placed him on a noninvasive ventilator with AVAPS mode and adjusted his settings to comfort. I ended up using AVAPS rate of 16, tidal volume 500, EPAP 8, minimal inspiratory pressure 9, maximal inspiratory pressure 25, inspiratory time 1.2, rise a 5 which is are slow ST and 30%. This resulted in tidal volumes of 537 and a peak inspiratory pressure of 11. I have initiated home noninvasive ventilation with an AVAPS mode with the plan coordinator. I will place him on hospital settings using those listed above or home unit and check an overnight oximetry and a blood gas prior to removal to assess his oxygenation and ventilation. Agree with aggressively diuresing patient with IV Lasix as tolerated by his cardiac and renal systems. [facility] was able to set him up with a home trilogy unit and we placed him on a rate of 16, tidal volume 500, EPAP minimum 5, EPAP maximum 18, pressure support minimum 5, pressure support maximum 15 with 2.5 L bleed in. 11/02 Patient wore his home machine and said that he slept well and is feeling more refreshed this morning. Denies fever, chills, hemoptysis or chest pain. Patient does have some phlegm production and is able to expectorates this. Patient had a blood gas at the end of the night on these settings with a pH of 7.37/70/68. Patient had an overnight oximetry on the settings with a average saturation 86%, lowest saturation 79%. Time with saturation less than or equal to 88% was 322 minutes. cumulative diuresis 910 mL since admission. Patient states his edema is better. I have increased his respiratory rate to 20 and increased his tidal volume to 550. I will place him on 5 L bleed in tonight on his home unit and check an overnight oximetry on the home unit with 5 L bleed in and check a blood gas prior to removal on the higher tidal volume and high respiratory rate. Agree with aggressive diuresis. Need to mobilize patient out of bed. Patient has had no bowel movement in 48 hours and states he will try today. Will follow with you. Subjective Date/time seen: 11/02/21 09:29 Interval history: 11/01/2021:? This is a new pulmonary consult for acute on chronic hypoxic? and hypercarbic respiratory failure. ?46-year-old man with morbid obesity (BMI 71.7), Obstructive sleep apnea on CPAP, hypothyroidism, diabetes, hypertension who presented to [facility] Emergency Department on 10/31/2021 with 2 months worsening edema and one-month worsening dyspnea on exertion.? the patient tells me that he was diagnosed with obstructive sleep apnea with a home sleep study approximately 2 years ago through his primary physician Dr. Danilo capellan.? He states that he does wear the machine but does not know his settings.? His DME company is [employer].? At times he is intolerant to the machine and ? He cannot sleep with the machine on.? He uses a fullface mask. at times he has run out of supplies and been unable to replace his.? ? Patient has noted increasing lower extremity and abdominal wall edema over the last 2 months and? he tells me over the last month he has worsening dyspnea on exertion.? He denies any fever, chills, cough, rigors,
[2021-11-02 09:43] LABS: Blood Urea Nitrogen 13 mg/dL (9-20); Calcium 8.5 mg/dL (8.4-10.2); Carbon Dioxide > 40 mmol/L (22-30); Chloride 92 mmol/L (98-107); Estimated CRCL calculation 161 ml/min; Estimated Glomerular Filt Rate > 60; Glucose 94 mg/dL (65-110); Potassium 4.1 mmol/L (3.4-5.0); Sodium 138 mmol/L (137-145)
[2021-11-02 11:15] LABS: Glucose Point of Care 84 mg/dl (65-105)
[2021-11-02 12:15] LABS: Glucose Point of Care 163 mg/dl (65-105)
[2021-11-02 17:02] LABS: Glucose Point of Care 110 mg/dl (65-105)
[2021-11-02] MEDS: TAMSULOSIN HCL 0.4 MG CAPSULE PO (17:30)
[2021-11-02] MEDS: POTASSIUM CHLORIDE 20 MEQ TABLET 40 MEQ PO (17:30)
[2021-11-02 18:31] LABS: Blood Urea Nitrogen 13 mg/dL (9-20); Calcium 8.4 mg/dL (8.4-10.2); Carbon Dioxide > 40 mmol/L (22-30); Chloride 93 mmol/L (98-107); Estimated CRCL calculation 180 ml/min; Estimated Glomerular Filt Rate > 60; Glucose 152 mg/dL (65-110); Potassium 4.2 mmol/L (3.4-5.0); Sodium 134 mmol/L (137-145)
[2021-11-02 20:57] LABS: Glucose Point of Care 157 mg/dl (65-105)
[2021-11-02] MEDS: ACETAMINOPHEN/ASPIRIN/CAFFEINE 250-250-65 MG TABLET 1 TABLET PO (22:52)
--- NOTE | 2021-11-02 23:43 | PC.NURSE ---
Apnea link study applied to Pt per RT and Pt placed on trilogy unit with a 5L O2 bleed in.
[2021-11-03] VITALS (15 sets, daily range): BP systolic 117–134; BP diastolic 61–83; PULSE 91–105; RESP 20–26; TEMP 36.2–37.6; O2SAT 92–96; BMI 67.7
[2021-11-03 05:12] LABS: Base Excess ABG 9.1 mEq/l (+/-2.0); Fractional Inspired Oxygen 40 %; HCO3 ABG 37.3 mEq/l (22.0-26.0); Oxygen Content ABG 21.1 %vol (16.0-22.0); Oxygen Saturation ABG 94.2 % (95.0-100.0); Oxyhemoglobin 92.5 % THb (90.0-100.0); PO2 ABG 74.3 mmHg (80.0-100.0); PO2 FiO2 Ratio Arterial Blood 1.86 %; Total Hemoglobin 16.2 g/dL (12.0-18.0); pH ABG 7.376 (7.350-7.450)
[2021-11-03 05:13] LABS: PCO2 ABG 65.1 mmHg (35.0-45.0)
[2021-11-03 05:14] LABS: Device NON-INVASIVE VENT; Modified Allen's Test Pass; Site Drawn LEFT RADIAL
[2021-11-03 05:15] LABS: Non-Invasive Expiratory Pressure 8 CMH2O; Non-Invasive Vent Rate 20 /MIN
[2021-11-03 05:54] LABS: Anion Gap 6 mmol/L (8-16); Blood Urea Nitrogen 12 mg/dL (9-20); Calcium 8.3 mg/dL (8.4-10.2); Carbon Dioxide 34 mmol/L (22-30); Chloride 94 mmol/L (98-107); Estimated CRCL calculation 203 ml/min; Estimated Glomerular Filt Rate > 60; Glucose 90 mg/dL (65-110); Potassium 4.2 mmol/L (3.4-5.0); Sodium 134 mmol/L (137-145)
[2021-11-03] MEDS: LEVOTHYROXINE SODIUM 75 MCG TABLET PO (06:09)
--- NOTE | 2021-11-03 08:25 | PM.IMPN ---
Progress Note: A&P Assessment and Plan (1) Acute respiratory failure with hypoxia and hypercarbia: Code(s): J96.01 - Acute respiratory failure with hypoxia; J96.02 - Acute respiratory failure with hypercapnia Status: Acute Assessment and Plan: Likely due to volume overload, untreated LEA and obesity hypoventilation. CTA chest negative for PE. BNP elevated 951. Will treat volume overload to improve breathing. I/O not being recorded. Significant UOP yesterday with improvement in exam, but I&Os are positive. Clinically improved. Negative 3.5L -Benz for accurate I&Os -Continue furosemide 20 mg IV BID - timed to stop in the morning before the next dose -Appreciate recommendations from Pulmonology - Dr. Schofield -Eleuterio leary -Continue bipap at night -Wean oxygen as tolerated during the day -Continue 1.2L fluid restriction (2) (HFpEF) heart failure with preserved ejection fraction: Code(s): I50.30 - Unspecified diastolic (congestive) heart failure Status: Acute Assessment and Plan: Volume overload. Already on BB and ARB. Volume overload is improving with diuresis. Will continue with furosemide. (3) Obesity hypoventilation syndrome: Code(s): E66.2 - Morbid (severe) obesity with alveolar hypoventilation Status: Acute Assessment and Plan: Management as noted above. (4) Hypothyroidism: Code(s): E03.9 - Hypothyroidism, unspecified Status: Acute Assessment and Plan: TSH 5. Free t4 1.05. Continue home medication. (5) Hypertension: Code(s): I10 - Essential (primary) hypertension Status: Acute Assessment and Plan: Continue metoprolol and irbesartan. (6) Hyperlipidemia: Code(s): E78.5 - Hyperlipidemia, unspecified Status: Acute Assessment and Plan: Continue rosuvastatin. (7) Diabetes: Code(s): E11.9 - Type 2 diabetes mellitus without complications Status: Acute Assessment and Plan: New onset. Previously had prediabetes per patient. A1C 7.3. May benefit from SGLT2 to be started. For now holding metformin x 48 hours because of CTA but will resume. -SSI w/ POC glucose -telehealth nurse educator ordered Subjective Date/time seen: 11/03/21 08:25 Patient says he feels much better. Says he has less difficulty moving around. He says his breathing also feels better. Staff reports multiple areas of rash in intertriginous areas and a wound on the cleft. Review of Systems Respiratory: Respiratory: Denies dyspnea Integumentary/Breasts: Skin/Breast: Reports rash Exam Narrative: GENERAL: NAD, cooperative HEENT: Normocephalic, atraumatic, anicteric NECK:Supple CV: Normal S1, S2, RRR, No MRG RESP: Clear to auscultation bilaterally, distant breath sounds Abdomen: Soft, non-tender, non-distended, EXTREMITIES: Warm and well perfused, no clubbing, cyanosis. Bilateral foot and ankle edema significnatly improved. SKIN: warm, dry and intact. NEURO: CN 2-12 grossly intact Objective Data Vital Signs Vital Signs: Vital Signs - 24 hr 11/02/21 10:00 11/02/21 12:00 11/02/21 12:00 Temperature 98.4 F Pulse Rate 89 97 Respiratory Rate 18 Blood Pressure 128/79 Pulse Oximetry 95 95 Oxygen Delivery Nasal Cannula Oxygen Flow Rate 6 11/02/21 12:00 11/02/21 14:00 11/02/21 16:00 Temperature 98.3 F Pulse Rate 104 H 100 100 Respiratory Rate 20 Blood Pressure 142/75 H Pulse Oximetry 98 Oxygen Delivery Oxygen Flow Rate 11/02/21 16:00 11/02/21 16:00 11/02/21 17:30 Temperature Pulse Rate 101 H 105 H Respiratory Rate Blood Pressure Pulse Oximetry 95 Oxygen Delivery Nasal Cannula Oxygen Flow Rate 6 11/02/21 18:00 11/02/21 20:00 11/02/21 20:36 Temperature 98.6 F Pulse Rate 102 H 101 H Respiratory Rate 20 Blood Pressure 107/41 L Pulse Oximetry 95 95 Oxygen Delivery Nasal Cannula Oxygen Flow Rate 5
[2021-11-03] MEDS: ROSUVASTATIN 10 MG TABLET 20 MG PO (09:08)
[2021-11-03] MEDS: METOPROLOL TARTRATE 50 MG TAB PO ×2 (09:09→17:28)
[2021-11-03] MEDS: GLIMEPIRIDE 1 MG TABLET PO (09:09)
[2021-11-03] MEDS: ENOXAPARIN 40 MG/0.4 ML SYRINGE SUB-Q (09:10)
[2021-11-03] MEDS: IRBESARTAN 150 MG TABLET PO (09:10)
[2021-11-03] MEDS: FUROSEMIDE INJ 40 MG/4 ML VIAL 20 MG IV PUSH (09:10)
[2021-11-03 09:31] LABS: Glucose Point of Care 109 mg/dl (65-105)
[2021-11-03] MEDS: MAGNESIUM SULF 1 GM/D5W 100 ML 1 GM/100 ML BAG IVPB (10:00)
--- NOTE | 2021-11-03 10:44 | PM.PNPUL ---
Progress Note: A&P Assessment and Plan (1) Obesity hypoventilation syndrome: Code(s): E66.2 - Morbid (severe) obesity with alveolar hypoventilation Status: Acute Assessment and Plan: 11/01 Patient is morbidly obese with a BMI of 71.7, he has a daytime blood gas of 7.29/67/77 on 2 L nasal cannula serum bicarbonate of 32. He has obesity hypoventilation syndrome. There is no evidence of concurrent COPD, pneumonia, pulmonary edema. His TSH is elevated I will check a free T4 he is already on Synthroid. Patient would benefit from noninvasive ventilation to prevent further deterioration and prevent hospitalization in the future. He could not tolerate BiPAP as said he had to take the machine off. He tells me the BiPAP was uncomfortable and I placed him on a noninvasive ventilator with AVAPS mode and adjusted his settings to comfort. I ended up using AVAPS rate of 16, tidal volume 500, EPAP 8, minimal inspiratory pressure 9, maximal inspiratory pressure 25, inspiratory time 1.2, rise a 5 which is are slow [address] and 30%. This resulted in tidal volumes of 537 and a peak inspiratory pressure of 11. I have initiated home noninvasive ventilation with an AVAPS mode with the graphics coordinator. I will place him on hospital settings using those listed above or home unit and check an overnight oximetry and a blood gas prior to removal to assess his oxygenation and ventilation. Agree with aggressively diuresing patient with IV Lasix as tolerated by his cardiac and renal systems. [facility] was able to set him up with a home trilogy unit and we placed him on a rate of 16, tidal volume 500, EPAP minimum 5, EPAP maximum 18, pressure support minimum 5, pressure support maximum 15 with 2.5 L bleed in. 11/02 Patient wore his home machine and said that he slept well and is feeling more refreshed this morning. Denies fever, chills, hemoptysis or chest pain. Patient does have some phlegm production and is able to expectorates this. Patient had a blood gas at the end of the night on these settings with a pH of 7.37/70/68. Patient had an overnight oximetry on the settings with a average saturation 86%, lowest saturation 79%. Time with saturation less than or equal to 88% was 322 minutes. cumulative diuresis 910 mL since admission. Patient states his edema is better. I have increased his respiratory rate to 20 and increased his tidal volume to 550. I will place him on 5 L bleed in tonight on his home unit and check an overnight oximetry on the home unit with 5 L bleed in and check a blood gas prior to removal on the higher tidal volume and high respiratory rate. Agree with aggressive diuresis. Need to mobilize patient out of bed. Patient has had no bowel movement in 48 hours and states he will try today. 11/03 Patient wears home noninvasive ventilator with AVAPS AE rate of 20, tidal volume 550, EPAP minimum 5, EPAP maximum 18, pressure support minimum 5, pressure support maximum 15 with 5 L bleed in. Said he slept well and continues to improve. His edema is decreasing. Patient had an overnight oximetry on the above settings with a baseline saturation 94%, lowest saturation 69%, time with saturation less than or equal to 88% was 74 minutes. Patient had an ABG prior to removal of the noninvasive ventilator with a pH of 7.38/65/74. I will place the patient on 6 L nasal cannula oxygen and repeat an overnight oximetry tonight. From a pulmonary perspective patient is suitable for discharge: AVAPS AE rate of 20, tidal volume 550, EPAP minimum 5, EPAP maximum 18, pressure support minimum 5, pressure support maximum 15 with 5 L bleed in. oxygen during the day per home O2 assessment Follow-up in the Pulmonary Clinic in 3-[address] Eller. Will follow with you. Subjective Date/time seen: 11/03/21 10:44 Interval history: 11/01/2021:? This is a new pulmonary consult for acute on chronic hypoxic? an
[2021-11-03 12:06] LABS: Glucose Point of Care 164 mg/dl (65-105)
[2021-11-03] MEDS: TOLNAFTATE 1% POWDER 45 GM BTL 1 APPLIC TOPICAL ×2 (12:11→21:19)
[2021-11-03] MEDS: POTASSIUM CHLORIDE 20 MEQ TABLET 40 MEQ PO (12:47)
[2021-11-03 16:33] LABS: Glucose Point of Care 122 mg/dl (65-105)
[2021-11-03] MEDS: TAMSULOSIN HCL 0.4 MG CAPSULE PO (17:28)
--- NOTE | 2021-11-03 19:54 | PC.NURSE ---
This patient, Riaz Morgan, was received from [facility] on 11/03/21 at 1954. Patient/family oriented to unit policies and routines.
--- NOTE | 2021-11-03 20:02 | PC.NURSE ---
This patient, Riaz Morgan, was transferred to [facility] on 11/03/21 at 1950. Personal belongings sent with patient. Report given to JANNET Lopez. Appropriate documentation sent with patient.
[2021-11-03 20:46] LABS: Glucose Point of Care 150 mg/dl (65-105)
[2021-11-04] VITALS (10 sets, daily range): BP systolic 106–129; BP diastolic 64–74; PULSE 92–127; RESP 18–20; TEMP 36.3–36.7; O2SAT 85–95
[2021-11-04] MEDS: LEVOTHYROXINE SODIUM 75 MCG TABLET PO (05:48)
[2021-11-04 06:45] LABS: Anion Gap 3 mmol/L (8-16); Blood Urea Nitrogen 12 mg/dL (9-20); Calcium 8.4 mg/dL (8.4-10.2); Carbon Dioxide 38 mmol/L (22-30); Chloride 94 mmol/L (98-107); Estimated CRCL calculation 173 ml/min; Estimated Glomerular Filt Rate > 60; Glucose 107 mg/dL (65-110); Magnesium 1.9 mg/dL (1.6-2.3); Phosphorus 3.9 mg/dL (2.5-4.5); Potassium 4.2 mmol/L (3.4-5.0); Sodium 135 mmol/L (137-145)
--- NOTE | 2021-11-04 08:16 | PM.PNPUL ---
Progress Note: A&P Assessment and Plan (1) Obesity hypoventilation syndrome: Code(s): E66.2 - Morbid (severe) obesity with alveolar hypoventilation Status: Acute Assessment and Plan: 11/01 Patient is morbidly obese with a BMI of 71.7, he has a daytime blood gas of 7.29/67/77 on 2 L nasal cannula serum bicarbonate of 32. He has obesity hypoventilation syndrome. There is no evidence of concurrent COPD, pneumonia, pulmonary edema. His TSH is elevated I will check a free T4 he is already on Synthroid. Patient would benefit from noninvasive ventilation to prevent further deterioration and prevent hospitalization in the future. He could not tolerate BiPAP as said he had to take the machine off. He tells me the BiPAP was uncomfortable and I placed him on a noninvasive ventilator with AVAPS mode and adjusted his settings to comfort. I ended up using AVAPS rate of 16, tidal volume 500, EPAP 8, minimal inspiratory pressure 9, maximal inspiratory pressure 25, inspiratory time 1.2, rise a 5 which is are slow [address] and 30%. This resulted in tidal volumes of 537 and a peak inspiratory pressure of 11. I have initiated home noninvasive ventilation with an AVAPS mode with the community sports coordinator. I will place him on hospital settings using those listed above or home unit and check an overnight oximetry and a blood gas prior to removal to assess his oxygenation and ventilation. Agree with aggressively diuresing patient with IV Lasix as tolerated by his cardiac and renal systems. [facility] was able to set him up with a home trilogy unit and we placed him on a rate of 16, tidal volume 500, EPAP minimum 5, EPAP maximum 18, pressure support minimum 5, pressure support maximum 15 with 2.5 L bleed in. 11/02 Patient wore his home machine and said that he slept well and is feeling more refreshed this morning. Denies fever, chills, hemoptysis or chest pain. Patient does have some phlegm production and is able to expectorates this. Patient had a blood gas at the end of the night on these settings with a pH of 7.37/70/68. Patient had an overnight oximetry on the settings with a average saturation 86%, lowest saturation 79%. Time with saturation less than or equal to 88% was 322 minutes. cumulative diuresis 910 mL since admission. Patient states his edema is better. I have increased his respiratory rate to 20 and increased his tidal volume to 550. I will place him on 5 L bleed in tonight on his home unit and check an overnight oximetry on the home unit with 5 L bleed in and check a blood gas prior to removal on the higher tidal volume and high respiratory rate. Agree with aggressive diuresis. Need to mobilize patient out of bed. Patient has had no bowel movement in 48 hours and states he will try today. 11/03 Patient wears home noninvasive ventilator with AVAPS AE rate of 20, tidal volume 550, EPAP minimum 5, EPAP maximum 18, pressure support minimum 5, pressure support maximum 15 with 5 L bleed in. Said he slept well and continues to improve. His edema is decreasing. Patient had an overnight oximetry on the above settings with a baseline saturation 94%, lowest saturation 69%, time with saturation less than or equal to 88% was 74 minutes. Patient had an ABG prior to removal of the noninvasive ventilator with a pH of 7.38/65/74. 11/04 Patient wore home noninvasive ventilator with AVAPS-AE rate of 20, tidal volume 550, EPAP minimum 5, EPAP maximum 18, pressure support minimum 5, pressure support maximum 15 with 5 L bleed in. tolerated this well. Diuresing with cumulative -7 0.2 L since admission. 11/04 Patient wore home noninvasive ventilator with AVAPS-AE rate of 20, tidal volume 550, EPAP minimum 5, EPAP maximum 18, pressure support minimum 5, pressure support maximum 15 with 5 L bleed in. tolerated this well. Diuresing with cumulative -7 0.2 L since admission. From a pulmonary perspective patient is suitable for di
[2021-11-04 08:40] LABS: Glucose Point of Care 122 mg/dl (65-105)
[2021-11-04] MEDS: IRBESARTAN 150 MG TABLET PO (09:45)
[2021-11-04] MEDS: METOPROLOL TARTRATE 50 MG TAB PO (09:45)
[2021-11-04] MEDS: ROSUVASTATIN 10 MG TABLET 20 MG PO (09:45)
[2021-11-04] MEDS: GLIMEPIRIDE 1 MG TABLET PO (09:45)
[2021-11-04] MEDS: TOLNAFTATE 1% POWDER 45 GM BTL 1 APPLIC TOPICAL (09:46)
[2021-11-04] MEDS: ENOXAPARIN 40 MG/0.4 ML SYRINGE SUB-Q (09:46)
[2021-11-04] MEDS: ACETAMINOPHEN/ASPIRIN/CAFFEINE 250-250-65 MG TABLET 1 TABLET PO (09:49)
--- NOTE | 2021-11-04 10:16 | HOMEO2EVAL ---
Evaluation was performed at [facility] Home Oxygen Evaluation RC: Home Oxygen (O2) Evaluation Start: 11/04/21 08:16 Freq: ONCE Status: Active Protocol: RPE Activity Type Activity Date Activity User E-sign Co-sign Detail Recorded Client Recorded Date Recorded By Document 11/04/21 09:30 [email or web address] [id number] 11/04/21 10:16 KRM Document 11/04/21 09:31 [email or web address] [email or web address] 11/04/21 10:16 KRM Document 11/04/21 09:32 KRM [email or web address] 11/04/21 10:16 KRM Document 11/04/21 09:34 KRM [email or web address] 11/04/21 10:16 KRM Document 11/04/21 09:36 KRM [email or web address] 11/04/21 10:16 KRM Document 11/04/21 09:38 KRM [email or web address] 11/04/21 10:16 KRM Document 11/04/21 09:40 KRM [email or web address] 11/04/21 10:16 KRM Document 11/04/21 09:42 KRM [email or web address] 11/04/21 10:16 KRM 11/04/21 11/04/21 11/04/21 09:30 09:31 09:32 Home O2 Evaluation Test Phase Resting Resting Resting Oxygen Delivery Nasal Cannula Nasal Cannula Oxygen Flow Rate (L/min) 1 2 Pulse Oximetry (90-100 %) 86 L 86 L 86 L Pulse Rate (60-100 beats/min) 111 H 109 H 107 H Activity Tolerance Ambulation Distance (feet) Ambulation Distance (meters) Treatment Charges 11/04/21 11/04/21 11/04/21 09:34 09:36 09:38 Home O2 Evaluation Test Phase Resting Resting Exercise Oxygen Delivery Nasal Cannula Nasal Cannula Nasal Cannula Oxygen Flow Rate (L/min) 3 4 4 Pulse Oximetry (90-100 %) 89 L 93 85 L Pulse Rate (60-100 beats/min) 108 H 108 H 127 H Activity Tolerance Ambulation Distance (feet) Ambulation Distance (meters) Treatment Charges 11/04/21 11/04/21 09:40 09:42 Home O2 Evaluation Test Phase Exercise Exercise Oxygen Delivery Nasal Cannula Nasal Cannula Oxygen Flow Rate (L/min) 5 6 Pulse Oximetry (90-100 %) 87 L 89 L Pulse Rate (60-100 beats/min) 127 H 125 H Activity Tolerance Fair Ambulation Distance (feet) 25 Ambulation Distance (meters) 7.61 Treatment Charges O2 Evaluation - Inpatient
--- NOTE | 2021-11-04 10:19 | PCRCNOTE ---
Addendum entered by Thalia Hankins, SPECIAL ED ASSISTANT 11/04/21 10:24: O2 TANK IN ROOM Original Note: HOME O2 EVALUATION COMPLETED. REQUIRES 4LPM O2 AT REST AND 6LPM O2 WITH ACTIVITY. FAXED ORDER AND INFO TO [facility]. ALSO INCLUDED UPDATED TRILOGY ORDER.
[2021-11-04 12:02] LABS: Glucose Point of Care 128 mg/dl (65-105)
--- NOTE | 2021-11-04 14:05 | PM.DS ---
DS: Admitting Diagnosis Discharge Date 11/04/21 Admitting Diagnosis Shortness of breath DS: Discharge Diagnosis Discharge Diagnosis (1) Acute respiratory failure with hypoxia and hypercarbia: Code(s): J96.01 - Acute respiratory failure with hypoxia; J96.02 - Acute respiratory failure with hypercapnia Status: Acute Assessment and Plan: Patient presents with SOB and found to have volume overload, untreated LEA and obesity hypoventilation. CTA chest negative for PE. BNP elevated 951. Was treated for volume overload with negative fluid balance. Pulmonary consulted and appreciate their input. Patient was treated AVAP and supplemental oxygen. Patient today states he feels ?1000 times better?. Home today with home oxygen and AVAPS. Continue Lasix. (2) (HFpEF) heart failure with preserved ejection fraction: Code(s): I50.30 - Unspecified diastolic (congestive) heart failure Status: Acute Assessment and Plan: Patient is volume overloaded on admission. BNP 951. Echocardiogram was technically difficult but showed EF of 55-60% and grade 1 diastolic dysfunction. And grossly normal right ventricular size and function but overall poorly visualized. Patient was clinically volume overloaded. We continued his metoprolol and irbesartan. He was started on IV Lasix with good diuresis. Home with oral Lasix. (3) Obesity hypoventilation syndrome: Code(s): E66.2 - Morbid (severe) obesity with alveolar hypoventilation Status: Acute Assessment and Plan: Patient with LEA with obesity hypoventilation syndrome. Pulmonary was consulted. Patient started on BiPAP but switched to AVAPS. Settings were adjusted. Plan home with AVAPS and supplemental oxygen. (4) Hypothyroidism: Code(s): E03.9 - Hypothyroidism, unspecified Status: Acute Assessment and Plan: TSH 5.4. Free T4 normal. We continued levothyroxine without dose change (5) Hypertension: Code(s): I10 - Essential (primary) hypertension Status: Acute Assessment and Plan: Blood pressure remained well controlled. We continued his metoprolol and irbesartan. (6) Hyperlipidemia: Code(s): E78.5 - Hyperlipidemia, unspecified Status: Acute Assessment and Plan: LFTs within normal limits. We continued his rosuvastatin. (7) Diabetes: Code(s): E11.9 - Type 2 diabetes mellitus without complications Status: Acute Assessment and Plan: A1C 7.3. Patient states that he had pre diabetes but he came in on Amaryl and metformin. Both these medications were continued. We monitor his glucose and covered with sliding scale protocol. Hypoglycemia protocol was available as needed. elementary educator ordered. Glucose overall remain well controlled. Defer to primary care doctor for further medication adjustment. Ideally would like to come off the Amaryl since this can cause weight gain. Will hold Amaryl and have him discuss with his doctor about other options. DS: Summary Hospital Course Reason for hospitalization: 46yo male with HTN, HLD, DM and morbid obesity here for increasing shortness of breath. Please see H&P for details Hospital Course: Please see above for details of hospital course Status at Discharge Cognitive/behavioral status at discharge: Stable Time Spent with Patient Time attestation: Total time spent providing and/or coordinating discharge services: 35 minutes Time spent: Greater than 30 minutes Exam Narrative: AF 98.0 129/74 125 20 89% (was having home O2 eval at the time) Gen - NARD sittiing at the side of the bed Chest -distant but clear breath sounds. CV - RRR S1/S2. Patient was not tachycardic at the time of visit. Abd -soft. Morbidly obese. Nontender Ext - 1+ pedal edema Neuro - Alert and oriented. Nonfocal exam. Psych - Nml mood and affect Skin - Warm and dry DS: Data Data Completed and Pendin
[2021-11-04 16:25] LABS: Glucose Point of Care 103 mg/dl (65-105)
== END 2021-11-04 19:30 | disposition home or self-care (01) | DRG 143 ==
LOC: ANHED 15:31 → ANHIMU 11-01 16:16 → ANH3MEDSUR 11-04 14:23 → ANHIMU 11-05 15:30
PROVIDERS: Family Medicine; Internal Medicine Pulmonary Disease; Physician Assistant; Admitting Provider Family Medicine; Emergency Provider Emergency Medicine; PCP Emergency Medicine; Visit Provider Internal Medicine
DX: E66.2 Morbid (severe) obesity with alveolar hypoventilation (principal); I11.0 Hypertensive heart disease with heart failure; J96.21 Acute and chronic respiratory failure with hypoxia; I50.31 Acute diastolic (congestive) heart failure; J96.22 Acute and chronic respiratory failure with hypercapnia; E03.9 Hypothyroidism, unspecified; E78.5 Hyperlipidemia, unspecified; R73.03 Prediabetes; Z20.822 Contact with and (suspected) exposure to COVID-19; Z68.44 Body mass index [BMI] 60.0-69.9, adult; Z79.84 Long term (current) use of oral hypoglycemic drugs; M17.10 Unilateral primary osteoarthritis, unspecified knee
CPT/HCPCS: 36415; 36600; 71046; 71275; 80048; 80053; 82375; 82805; 82948; 83036; 83050; 83605; 83735; 83880; 84100; 84439; 84443; 84484; 85025; 85380; 87040; 93005; 93970; 94618; 94762; 99291; A9270; C8929; C9803; J1650; J1940; J3475; Q9957; Q9967; U0003; U0005

== ENCOUNTER 2023-06-30 17:20 | Inpatient (IN) | payer BC, SELFPAY ==
[2023-06-30] VITALS (12 sets, daily range): BP systolic 92–125; BP diastolic 44–85; PULSE 105–123; RESP 16–24; TEMP 36.6; O2SAT 91–100
--- NOTE | ~2023-06-30 | US_ITS ---
EXAMINATION: US scrotum doppler DATE: 07/04/2023 14:06 INDICATION: Scrotal Swelling F/U/worseing leukocytosis . TECHNIQUE: Grayscale and Doppler ultrasound images of the testes were obtained. COMPARISON: None. FINDINGS: The right testis measures 3.7 x 2.6 x 2.3 cm. The left testis measures 3.0 x 1.9 x 2.4 cm. No testicular mass. There is normal vascular flow to both testes. Limited visualization of the epidid ymis bilaterally. There is no varicocele. Moderate volume left complex hydrocele with septate. Large volume simple appearing right hydrocele. Severe scrotal skin thickening. IMPRESSION: Severe scrotal edema/cellulitis. Large volume simple right hydrocele. Moderate volume complex left hydrocele.. Reviewed, dictated and finalized at location K. STANT AUTO CENTER MANAGER
--- NOTE | ~2023-06-30 | XR_ITS ---
EXAMINATION: XR chest 1V portable DATE: 07/13/2023 06:10 INDICATION: Hypoxia. TECHNIQUE: A single frontal view of the chest was obtained. COMPARISON: Chest single view 07/05/[address] abdomen pelvis 07/11/2003 FINDINGS: There are airspace opacities in left lower lung zone. There is a small left pleural effusio n. No pneumothorax. Cardiomegaly is noted. IMPRESSION: 1. Airspace opacities in left lower lung zone, consistent with atelectasis versus pneumonia. 2. Small left pleural effusion. 3. Cardiomegaly. Reviewed, dictated and finalized at location E. NEERING ADMINISTRATOR IMPRESSION: 1. Airspace opacities in left lower lung zone, consistent with atelectasis vers us pneumonia. 2. Small left pleural effusion. 3. Cardiomegaly.
--- NOTE | ~2023-06-30 | XR_ITS ---
EXAMINATION: XR chest 1V portable Exam Date/Time: 07/05/2023 20:00 ACCOUNTS RECEIVABLE ASSOCIATE HISTORY: Chest pain Comparison: 10/31/2021. RESULT: Lines, tubes, and devices: None. Lungs and pleura: Low volumes with crowding. Asymmetric density over the right chest likely secondar y to overlying soft tissues and slight rotation. Indistinct vessels. Subsegmental left basilar airspa ce disease. Cardiomediastinal silhouette: Stable. Other: No acute osseous or upper abdominal finding. IMPRESSION: Left basilar atelectasis/consolidation. Mild edema. Reviewed, dictated and finalized at location K. UNTS RECEIVABLE ASSOCIATE
--- NOTE | ~2023-06-30 | CT_ITS ---
EXAMINATION: CT abdomen pelvis wo con DATE: 07/11/2023 02:39 INDICATION: Projectile vomiting. TECHNIQUE: Computed tomography (CT) of the abdomen and pelvis was performed without intravenous contr ast. Automated exposure control and iterative reconstruction technique were employed. The dose-length product was 1818.03 mGy-cm. COMPARISON: CT abdomen 01/14/2018 FINDINGS: The visualized portions of the lung bases demonstrate small pleural effusions and dependent atelectasis. Cardiomegaly is noted. No pericardial effusion. The liver, gallbladder, spleen, pancrea s, adrenal glands, and kidneys are normal. There is no urolithiasis. The bladder is decompressed by a Benz catheter. There are no dilated loops of bowel. The appendix is normal. There are no pathologic ally enlarged lymph nodes. There is no free intraperitoneal fluid. Body wall edema is noted. There is mild chronic anterior wedging of L1 vertebral body. There is mild lumbar spondylosis. IMPRESSION: 1. Small pleural effusions. Reviewed, dictated and finalized at location A. MACHINE OPERATOR IMPRESSION: 1. Small pleural effusions.
--- NOTE | ~2023-06-30 | CT_ITS ---
EXAMINATION: CT pelvis w con DATE: 06/30/2023 19:55 INDICATION: Scrotal abscess. TECHNIQUE: Computed tomography (CT) of the pelvis was performed with 100 mL Omnipaque 350 intravenous contrast. Automated exposure control and iterative reconstruction technique were employed. The dose- length product was 1543.36 mGy-cm. COMPARISON: None FINDINGS: There is extensive skin thickening of the scrotum. No abscess. No soft tissue gas. There is an umbilical hernia containing fat. There is mild bilateral inguinal lymphadenopathy, likely reactiv e. There is mild lumbar spondylosis. IMPRESSION: 1. Extensive scrotal skin thickening. 2. Mild bilateral inguinal lymphadenopathy, likely reactive. Reviewed, dictated and finalized at location E. E MERCHANDISER
--- NOTE | ~2023-06-30 | US_ITS ---
EXAMINATION: US scrotum doppler DATE: 06/30/2023 21:44 INDICATION: Scrotal abscess. TECHNIQUE: Grayscale and Doppler ultrasound images of the testes were obtained. COMPARISON: CT 06/30/2023 FINDINGS: The right testis measures 4.0 x 2.5 x 2.6 cm. The left testis measures 3.3 x 2.3 x 2.8 cm. There is normal vascular flow to both testes. The right epididymis is normal with normal vascular herminio w. The left epididymis is normal with normal vascular flow. There are small bilateral hydroceles. The re is extensive scrotal skin thickening. IMPRESSION: 1. Small bilateral hydroceles. 2. Extensive scrotal skin thickening. Reviewed, dictated and finalized at location E. WASHER
--- NOTE | ~2023-06-30 | US_ITS ---
EXAMINATION: US renal BI DATE: 07/04/2023 14:10 INDICATION: ATN TECHNIQUE: Multiple grayscale and Doppler ultrasound images of the kidneys were obtained. COMPARISON: None. FINDINGS: The right kidney measures 13.9 x 5.9 x 6.4 cm. The left kidney measures 14.5 x 7.9 x 6.8 cm. The kidn eys demonstrate normal parenchymal echogenicity. Somewhat limited visualization of the left kidney du e to body habitus There is no hydronephrosis. The bladder is not visualized. IMPRESSION: Unremarkable renal sonogram findings. Reviewed, dictated and finalized at location K. OM SPRAYER
--- NOTE | ~2023-06-30 | XR_ITS ---
EXAMINATION: XR abdomen/kub 1V DATE: 07/11/2023 01:54 INDICATION: Vomiting. TECHNIQUE: A supine view of the abdomen on 2 radiographs was obtained. COMPARISON: CT abdomen and pelvis 07/11/2023 FINDINGS: There is gaseous distention of the stomach. The small and large bowel are normal in caliber . IMPRESSION: 1. Gaseous distention of the stomach. Reviewed, dictated and finalized at location A. TY SEALER
--- NOTE | ~2023-06-30 | US_ITS ---
EXAMINATION: US right upper quadrant DATE: 07/13/2023 18:59 INDICATION: elevated lipase TECHNIQUE: Multiple grayscale and Doppler ultrasound images of the right upper quadrant were obtained . COMPARISON: CT abdomen pelvis 07/11/2023. FINDINGS: Pancreas not well visualized. Echogenic liver parenchyma. No surface nodularity. Normal hep atopetal flow in the main portal vein. The gallbladder is normal with no abnormal wall thickening, pe richolecystic fluid or stones. The common bile duct measures 6 mm. There was no sonographic Dodson si gn. IMPRESSION: Echogenic liver, most commonly due to steatosis but also can be seen with hepatitis and fibrosis. Pancreas not well visualized in this examination. Reviewed, dictated and finalized at location K. ANALYSIS TECHNICIAN IMPRESSION: Echogenic liver, most commonly due to steatosis but also can be seen with hepat itis and fibrosis. Pancreas not well visualized in this examination.
--- NOTE | ~2023-06-30 | US_ITS ---
EXAMINATION: US venous doppler [facility] DATE: 07/06/2023 21:00 INDICATION: elevated d dimer, leg swelling . TECHNIQUE: Grayscale images without and with compression and Doppler images of the bilateral lower ex tremity veins were obtained. COMPARISON: None FINDINGS: The right profunda femoral vein, popliteal vein, and gastrocnemius veins are patent. Poor/no visualiz ation of the remaining right lower extremity veins. The left popliteal and gastrocnemius veins are patent. Poor/no visualization of the remaining left lo wer extremity veins. IMPRESSION: Limited examination with poor/no visualization of the majority of the bilateral lower extremity veins . No DVT detected in the limited number of veins that were visualized. Reviewed, dictated and finalized at location K. TOP TECHNICIAN IMPRESSION: Limited examination with poor/no visualization of the majority of the bilateral lower extremity veins. No DVT detected in the limited number of veins that wer e visualized.
--- NOTE | 2023-06-30 18:08 | ED.SKABFB ---
HPI - Skin/Abscess/Foreign Bdy General Chief complaint: Skin/Abscess/Foreign Body <Radha Lobo PA-C - Last Filed: 06/30/23 23:45> Stated complaint: lt testicle swelling and cellilitis. ABX not work <Radha Lobo PA-C - Last Filed: 06/30/23 23:45> Time Seen by Provider: 06/30/23 17:41 <ZACK Dee Last Filed: 06/30/23 23:45> Source: patient and old records reviewed <ZACK Dee Last Filed: 06/30/23 23:45> Mode of arrival: ambulatory <ZACK Dee Last Filed: 06/30/23 23:45> Limitations: no limitations <ZACK Dee Last Filed: 06/30/23 23:45> History of Present Illness HPI narrative: Patient is a 47 y/o male who presents the ED with report of cellulitis to his scrotum. Patient reports he 1st noticed a lump on his lower scrotum last . States he became increasingly painful, tender, red, swollen. He was seen at [facility] on Thursday and started on Levaquin, prescribed tramadol for likely cellulitis. Patient states symptoms have continued to worsen. He began noticing drainage from his lower scrotum today. He saw his primary care doctor today and was referred here for further evaluation. He reports his scrotum has become the size of a grapefruit. Reports subjective fevers, nausea. Denies vomiting, diarrhea, constipation, dysuria, hematuria, penile drainage, abdominal pain. Patient reports a history of prediabetes however, per med rec, patient is on Glimepiride, Jardiance, and Metformin 1000mg BID. <Radha Lobo PA-C - Last Filed: 06/30/23 23:45> Related Data Home medications: Home Medications Medication Instructions Recorded Confirmed metformin 500 mg tablet 1,000 mg PO BIDWM 02/11/21 07/01/23 metoprolol tartrate 50 mg tablet 100 mg PO BIDWM 02/11/21 07/01/23 glimepiride 1 mg tablet (Amaryl) 1 mg PO DAILY 10/31/21 07/01/23 irbesartan 150 mg tablet 150 mg PO DAILY 10/31/21 07/01/23 levothyroxine 25 mcg tablet 75 mcg PO DAILY 10/31/21 07/01/23 rosuvastatin 20 mg tablet 20 mg PO DAILY 10/31/21 07/01/23 empagliflozin 10 mg tablet 10 mg PO DAILY 07/01/23 07/01/23 (Jardiance) <Radha Lobo PA-C - Last Filed: 06/30/23 23:45> Allergies/Adverse reactions: Allergies Allergy/AdvReac Type Severity Reaction Status Date / Time No Known Drug Allergies Allergy Unknown Unknown Verified 07/01/23 01:29 <Radha Lobo PA-C - Last Filed: 06/30/23 23:45> Review of Systems Review of Systems: CONSTITUTIONAL: Reports subjective fevers. GASTROINTESTINAL: Reports nausea. Denies abdominal pain, vomiting, or diarrhea. GENITOURINARY: See HPI. Denies dysuria or hematuria. <Radha Lobo PA-C - Last Filed: 06/30/23 23:45> All systems reviewed & are unremarkable except as noted in HPI and below <Radha Lobo PA-C - Last Filed: 06/30/23 23:45> [facility] Past Medical History Medical History: Medical History Degenerative joint disease of knee Hyperlipidemia Hypertension Hypothyroidism Obstructive sleep apnea on CPAP Prediabetes <Radha Lobo PA-C - Last Filed: 06/30/23 23:45> Surgical History Surgical History: Surgical History History of myringoplasty History of plastic surgery Repair right orbital fracture. <Radha Lobo PA-C - Last Filed: 06/30/23 23:45> Family History Family History: Family History Unknown Hypertension HLD (hyperlipidemia) <Radha Lobo PA-C - Last Filed: 06/30/23 23:45> Social History Social History: Social History Social History: Surrogate decision maker: Shirley Price, mother. Code status: Full code. Smoking st
[2023-06-30 18:48] LABS: Hematocrit 37.8 % (42.0-52.0); Hemoglobin 12.7 g/dL (14.0-18.0); Mean Corpuscular HGB Conc 33.6 g/dl (32-36); Mean Corpuscular Hemoglobin 28.9 pg (26-34); Mean Corpuscular Volume 85.9 fl (80-100); Mean Platelet Volume 10.4 fl (7.4-10.4); Platelet Count Result 272 k/mm3 (150-375); Red Cell Distribution Width 14.6 % (11.5-14.5); White Blood Count 27.2 K/mm3 (4.5-10.0)
[2023-06-30 18:52] LABS: INR 1.2; Prothrombin Time 15.5 Seconds (11.1-14.7)
[2023-06-30 18:53] LABS: Partial Thromboplastin Time 37.6 SECONDS (22.3-36.8)
[2023-06-30 18:58] LABS: Band Neutrophils Percent 10 % (0-6); Lymphocytes Absolute Manual 0.54 K/mm3 (1.1-4.5); Lymphocytes Percent Manual 2 % (18-44); Monocytes Absolute Manual 2.17 K/mm3 (0.1-0.90); Monocytes Percent Manual 8 % (3-9); Neutrophils Absolute Manual 24.48 K/mm3 (1.3-6.7); Neutrophils Percent Manual 80 % (46-73); Total Cells Counted 100
[2023-06-30 18:59] LABS: Hypochromasia 1+ (NORMAL); Ovalocytes 1+ (NORMAL); Platelet Estimate Adequate (Adequate); Schistocytes None Seen (NORMAL)
[2023-06-30 19:01] LABS: Beta-Hydroxybutyrate/Acetoacetate 0.84 mmol/L (0.02-0.27)
[2023-06-30] MEDS: fentaNYL CITRATE INJ (*CRX) 100 MCG/2 ML VIAL 50 MCG IV PUSH ×2 (19:02→21:15)
[2023-06-30] MEDS: ONDANSETRON INJ 4 MG/2 ML VIAL IV PUSH (19:02)
[2023-06-30 19:04] LABS: Alanine Aminotransferase 45 U/L (6-50); Albumin Level 3.7 g/dL (3.5-5.1); Alkaline Phosphatase 186 U/L (38-126); Anion Gap 14 mmol/L (8-16); Aspartate Amino Transferase 49 U/L (17-59); Bilirubin,Total 1.1 mg/dL (0.2-1.3); Blood Urea Nitrogen 16 mg/dL (9-20); Calcium 8.9 mg/dL (8.4-10.2); Carbon Dioxide 18 mmol/L (22-30); Chloride 97 mmol/L (98-107); Estimated CRCL calculation 108 ml/min; Estimated Glomerular Filt Rate > 60; Glucose 123 mg/dL (65-110); Potassium 3.7 mmol/L (3.4-5.0); Sodium 129 mmol/L (137-145)
[2023-06-30] MEDS: CLINDAMYCIN 900 MG/D5W 50 ML 900 MG/50 ML PIGGYBACK 50 MG IVPB (19:06)
[2023-06-30 19:12] LABS: Lactic Acid Reflex 2.2 mmol/L (0.7-2.0)
[2023-06-30] MEDS: SODIUM CHLORIDE 0.9% IV 1,000 ML 999 ML IV CONT ×2 (19:13→21:25)
[2023-06-30] MEDS: MEROPENEM 1 GM/NS 100 ML 1 GM/100 ML BAG IVPB (19:13)
[2023-06-30 19:16] LABS: Hemoglobin A1C 6.2 % (<5.7)
[2023-06-30 19:35] LABS: CRP 23.8 mg/dL (<1.0)
[2023-06-30] MEDS: VANCOMYCIN 1,250 MG/NS 250 ML 1,250 MG/250 ML BAG 166.67 MG IVPB ×2 (20:21→22:06)
[2023-06-30 22:00] LABS: Reflex Lactic Acid Yes or No Add Lactic
--- NOTE | 2023-06-30 22:55 | PM.IMHP ---
H&P: HPI History of Present Illness Date/Time: 06/30/23 22:55 Chief Complaint: scrotal swelling Narrative: This is a 47-year-old male with past medical history significant for morbid obesity, hypertension, type 2 diabetes mellitus, Obstructive sleep apnea on CPAP at nighttime. Patient presents to the emergency room with complaints of scrotal swelling and pain for the last 4 days or so has had chills and fevers, has been able to void urine and to have bowel movements, no nausea no vomiting, no shortness of breath, no cough no sputum production. Has been his usual state of health up until this point. In emergency room patient was found to have moderate amount of scrotal swelling. Patient was started on antibiotics. Admit for further evaluation, management and treatment EXAMINATION: CT pelvis w con DATE: 06/30/2023 19:55 INDICATION: Scrotal abscess. TECHNIQUE: Computed tomography (CT) of the pelvis was performed with 100 mL Omnipaque 350 intravenous contrast. Automated exposure control and iterative reconstruction technique were employed. The dose-length product was 1543.36 mGy-cm. COMPARISON: None FINDINGS: There is extensive skin thickening of the scrotum. No abscess. No soft tissue gas. There is an umbilical hernia containing fat. There is mild bilateral inguinal lymphadenopathy, likely reactive. There is mild lumbar spondylosis. IMPRESSION: 1. Extensive scrotal skin thickening. 2. Mild bilateral inguinal lymphadenopathy, likely reactive. EXAMINATION: US scrotum doppler DATE: 06/30/2023 21:44 INDICATION: Scrotal abscess. TECHNIQUE: Grayscale and Doppler ultrasound images of the testes were obtained. COMPARISON: CT 06/30/2023 FINDINGS: The right testis measures 4.0 x 2.5 x 2.6 cm. The left testis measures 3.3 x 2.3 x 2.8 cm. There is normal vascular flow to both testes. The right epididymis is normal with normal vascular flow. The left epididymis is normal with normal vascular flow. There are small bilateral hydroceles. There is extensive scrotal skin thickening. IMPRESSION: 1.? Small bilateral hydroceles. 2. Extensive scrotal skin thickening. Review of Systems Review of Systems: scrotal swelling, pain, fevers, chills worsening for the last 4 days Constitutional: Constitutional: Reports chills and Reports fever(s) Eyes: Eyes: Denies change in vision ENT: Denies dysphagia and Denies odynophagia Cardiovascular: Cardiovascular: Denies chest pain, Denies radiating jaw, neck or arm pain and Denies palpitations Respiratory: Respiratory: Denies cough and Denies dyspnea Gastrointestinal: Gastrointestinal: Denies abdominal pain, Denies nausea and Denies vomiting Genitourinary: Genitourinary: Reports genital pain and Reports scrotal swelling Musculoskeletal: Musculoskeletal: Reports back pain Integumentary/Breasts: Skin/Breast: Reports erythema, Reports skin swelling ( scrotum) and Reports skin ulcer Psychiatric: Psychiatric: Reports no additional psychiatric complaints and Reports as per HPI Endocrine: Endocrine: Denies cold intolerance, Denies fatigue, Denies flushing, Denies heat intolerance, Denies polyphagia, Denies polydipsia, Denies polyuria and Denies palpitations Hematologic/Lymphatic: Hematologic/Lymphatic: Reports no additional hematologic/lymphatic complaints and Reports as per HPI Allergic/Immunologic: Allergic/Immunologic: Reports no additional allergic/immunologic complaints and Reports as per HPI PMFSH Past Medical History Medical History Degenerative joint disease of knee Hyperlipidemia Hypertension Hypothyroidism Obstructive sleep apnea on CPAP Prediabetes Surgical History Surgical History History of myringoplasty History of plastic surgery Repair right orbital fracture. Family History Family History (Reviewed 06/30/23 @ 18:14 by Laureen
[2023-06-30 23:17] LABS: Lactic Acid 2.2 mmol/L (0.7-2.0)
[2023-07-01] VITALS (15 sets, daily range): BP systolic 98–112; BP diastolic 50–60; PULSE 86–125; RESP 16–20; TEMP 36.8–37.3; O2SAT 90–97; BMI 57.7
[2023-07-01 00:51] LABS: Appearance Urine Cloudy (Clear); Bacteria Urine None Seen /hpf; Bilirubin Urine 1+ (Negative); Blood Urine Negative (Negative); Color Urine Dark Yellow (Yellow); Glucose Urine UA 2+ mg/dL (Negative); Hyaline Casts Urine Present /lpf; Ketones Urine 1+ mg/dL (Negative); Leukocyte Esterase Ur Negative LEU/UL (Negative); Need Manual Microscopic Reviewed; Nitrate Urine Negative (Negative); Non Pathogenic Casts >20; Protein Urine 2+ mg/dL (Negative); RBC Urine 0-2 /hpf (0-2); Squamous Epithelial Cell Urine Moderate /hpf (Few); WBC Urine 0-5 /hpf
[2023-07-01 01:16] LABS: Specific Grav Ur 1.072 (1.001-1.035)
[2023-07-01 01:17] LABS: Add Urine Microscopic? YES
--- NOTE | 2023-07-01 01:21 | ADMGEN ---
This patient, Riaz Morgan, was admitted to 3 Medical Room 347-. Patient/family oriented to hospital policies and general routines including ID bracelet, bed and alarms, visiting hours, pain management, procedures, bathroom and other care routines, personal items, smoking policy, room service/diet, and visiting hours. Information on how to activate the Rapid Response Team has been discussed. Patient/Family are encouraged to report perceived risks to care and to ask questions if they do not understand what they are told or what they should do.
[2023-07-01] MEDS: MORPHINE SULFATE (*CRX) 4 MG/ML INJ IV PUSH ×5 (01:39→20:21)
[2023-07-01] MEDS: SODIUM CHLORIDE 0.9% IV 1,000 ML 100 ML IV CONT ×2 (01:42→16:18)
[2023-07-01] MEDS: MEROPENEM 1 GM/NS 100 ML 1 GM/100 ML BAG IVPB ×2 (01:42→09:14)
[2023-07-01] MEDS: CLINDAMYCIN 900 MG/D5W 50 ML 900 MG/50 ML PIGGYBACK 50 MG IVPB (02:27)
[2023-07-01 05:40] LABS: Estimated CRCL calculation 94 ml/min; Estimated Glomerular Filt Rate 54
[2023-07-01] MEDS: LEVOTHYROXINE SODIUM 75 MCG TABLET PO (05:40)
[2023-07-01 08:29] LABS: Hematocrit 36.1 % (42.0-52.0); Hemoglobin 11.5 g/dL (14.0-18.0); Mean Corpuscular HGB Conc 31.9 g/dl (32-36); Mean Corpuscular Hemoglobin 28.2 pg (26-34); Mean Corpuscular Volume 88.5 fl (80-100); Mean Platelet Volume 9.9 fl (7.4-10.4); Platelet Count Result 249 k/mm3 (150-375); Red Blood Count 4.08 M/mm3 (4.6-6.20); Red Cell Distribution Width 14.9 % (11.5-14.5); White Blood Count 28.5 K/mm3 (4.5-10.0)
[2023-07-01 08:29] LABS: Glucose Point of Care 93 mg/dl (65-105)
[2023-07-01 08:40] LABS: Alanine Aminotransferase 37 U/L (6-50); Albumin Level 3.2 g/dL (3.5-5.1); Alkaline Phosphatase 151 U/L (38-126); Anion Gap 7 mmol/L (8-16); Aspartate Amino Transferase 42 U/L (17-59); Bilirubin,Total 1.1 mg/dL (0.2-1.3); Blood Urea Nitrogen 19 mg/dL (9-20); Calcium 8.1 mg/dL (8.4-10.2); Carbon Dioxide 21 mmol/L (22-30); Chloride 99 mmol/L (98-107); Estimated CRCL calculation 83 ml/min; Estimated Glomerular Filt Rate 47; Glucose 99 mg/dL (65-110); Lactic Acid Reflex 1.2 mmol/L (0.7-2.0); Potassium 3.7 mmol/L (3.4-5.0); Sodium 127 mmol/L (137-145)
--- NOTE | 2023-07-01 08:47 | WPDURCON ---
Assessment and Plan Assessment and plan (1) Cellulitis of scrotum: Code(s): N49.2 - Inflammatory disorders of scrotum Status: Acute Assessment and Plan: Diffuse, marked scrotal cellulitis noted on exam without abscess. Pelvic CT and scrotal US unremarkable. No indication for surgical intervention at this time as there is no drainable abscess. Continue with broad spectrum antibiotics. There is no wound/drainage that can be collected for culture. Elevate scrotum. Continue supportive care. (2) Sepsis: Qualifiers: Sepsis acute organ dysfunction status: unspecified Sepsis type: sepsis due to unspecified organism Qualified Code(s): A41.9 - Sepsis, unspecified organism Code(s): A41.9 - Sepsis, unspecified organism Status: Acute Assessment and Plan: Source of infection felt to be scrotal cellulitis as above. Blood cultures are pending. Urology Consult Note HPI Date Seen: 07/01/23 Requesting Physician: Oliver Black MD Primary Care Provider: Tereso Madison MD Consult Narrative Narrative: Riaz Morgan is a 47 year old male with a history of controlled diabetes who is currently admitted for scrotal cellulitis. He presented to the emergency department on 06/30/2023 from his PCP office due to worsened scrotal swelling. He first noticed scrotal discomfort one week ago when he was climbing into his truck, he stated he felt uncomfortable when he sat down. Later when he got home, he thought he might have had ingrown hair and tried to pop an area on his left posterior scrotum. He did not have any drainage with this. Following this, he developed scrotal swelling. Two days later, his swelling got worse and he went to [facility] ER on 06/27/2023. He had a scrotal ultrasound which showed prominent diffuse scrotal wall edema with no significant hyperemia to suggest inflammation and no acute testicular abnormalities. He was discharged with p.o. Levaquin and analgesics. He reports no improvement with the oral antibiotic and noted that his swelling continued to worsen. He went to his PCP yesterday and by that time had developed low-grade fever (T-max 100?), chills, and sweats. His PCP sent via ambulance to the emergency department. On arrival, he was noted to be tachycardic with low blood pressure, patient had leukocytosis, lactic acidosis, elevated inflammatory markers. A CT scan of his pelvis was completed which showed extensive thickening of the scrotal skin without evidence of abscess or soft tissue gas and mild reactive lymphadenopathy. A scrotal ultrasound was also completed which showed normal vascular flow of bilateral testes, small bilateral hydroceles, extensive scrotal skin thickening. At the time of my evaluation, he reports 6/10 intermittent sharp left scrotal pain. Denies ongoing fever, chills, nausea, or vomiting. WBC has increased to 28.5. Creatinine increased to 1.6. Lactic acid levels have normalized. He remains afebrile. UA without concerns for infection. He is voiding without difficulty and denies penile discharge. He reports no trauma or injury. Review of Systems Review of Systems: All systems reviewed & are unremarkable except as noted in HPI and below PMFSH Past Medical History Medical History Degenerative joint disease of knee Hyperlipidemia Hypertension Hypothyroidism Obstructive sleep apnea on CPAP Prediabetes Surgical History Surgical History History of myringoplasty History of plastic surgery Repair right orbital fracture. Family History Family History Unknown Hypertension HLD (hyperlipidemia) Social History Social History Social History: Surrogate decision maker: mother Hernandez. C
[2023-07-01] MEDS: VANCOMYCIN 1,500 MG/NS 500 ML 1,500 MG/500 ML BAG 250 MG IVPB ×2 (09:12→20:23)
[2023-07-01] MEDS: ROSUVASTATIN 10 MG TABLET 20 MG PO (09:13)
[2023-07-01] MEDS: IRBESARTAN 150 MG TABLET PO (09:13)
[2023-07-01] MEDS: EMPAGLIFLOZIN 10 MG TABLET PO (09:13)
[2023-07-01] MEDS: METOPROLOL TARTRATE 50 MG TAB 100 MG PO ×2 (09:14→20:22)
[2023-07-01] MEDS: TOLNAFTATE 1% POWDER 45 GM BTL 1 APPLIC TOPICAL ×2 (09:16→20:36)
[2023-07-01 12:33] LABS: Glucose Point of Care 98 mg/dl (65-105)
--- NOTE | 2023-07-01 13:41 | P.PNIM_ITS ---
Progress Note: A&P Assessment and Plan (1) Cellulitis of scrotum: Code(s): N49.2 - Inflammatory disorders of scrotum Status: Acute (2) Diabetes: Code(s): E11.9 - Type 2 diabetes mellitus without complications Status: Acute (3) (HFpEF) heart failure with preserved ejection fraction: Code(s): I50.30 - Unspecified diastolic (congestive) heart failure Status: Acute Assessment and Plan: monitor daily intake and output (4) Obesity hypoventilation syndrome: Code(s): E66.2 - Morbid (severe) obesity with alveolar hypoventilation Status: Acute (5) Obstructive sleep apnea on CPAP: Code(s): G47.33 - Obstructive sleep apnea (adult) (pediatric); Z99.89 - Dependence on other enabling machines and devices Status: Acute (6) Bilateral knee pain: Code(s): M25.561 - Pain in right knee; M25.562 - Pain in left knee Status: Acute Plan Sepsis * empiric IV antibiotic therapy/Vanc, Rociphen, flaygl * Monitor lactic acid levels q6hr. 2.2 POA back to normal * Repeat CBC, CMP. * Two sets of blood cultures pending * urine cultures. * C-reactive proteins 23.8 * PTT and PT, INR. * TTE if indicated. * glucose monitoring and control Cellulitis * of the scrotum * Blood cultures NGTD * Wound culture if open wound * Imaging US: bilateral hydroceles and scrotal skin thickening * Antibiotic regimen targeting patient's risk factors, adjust based on culture and sensitivity currently vancomycin and Rocephin and p.o. Flagyl * Monitor IV hydration. * scrotal hammock * Urology consulted and following * monitor urinary output may need straight cath if unable to void due to swelling * Monitor vital signs and oxygen saturation. * Recommended duration of antibiotic therapy for 7-10 days. Diabetes * Accu-Cheks a.c. HS * sliding scale insulin * hold oral diabetic medications * resume patient's home long-acting * Hemoglobin A1c goal less than 7 * Diabetic diet * consult to dietitian * encourage lifestyle modifications and weight loss * Optimize Evangelist inhibitors and statins. * Watch for hypoglycemia/hypoglycemic protocol ordered LEA * CPAP at night per home settings * encourage weight loss HFpEF * Stable does not appear in exacerbation * resume home medications including Lasix, Jardianc and, metoprolol Obesity * encourage increased on physical activity and lifestyle modifications * Stress monitoring and eating disorder evaluation. * encourage outpatient weight loss clinic * BMI . * Diet exercise counseling done. * consult to dietitian Code status: Full code per patient DVT prophylaxis: Lovenox Stress ulcer prophylaxis: Protonix 40 daily PT/OT notes: Ambulatory Disposition: continues admission for sepsis with out septic shock secondary to cellulitis of the scrotum. Monitor for down trend of WBC, Lactic acidosis resolved. monitor urinary output. Patient will discharge back to home when medically stable. Time Spent With Patient Time with patient: 25 - 35 minutes Subjective Date/time seen: 07/01/23 13:41 Interval history: H&P (Medical Record) Chief Complaint: ?? scrotal swelling Narrative: ?This is a 47-year-old male with past medical history significant for morbid obesity, hypertension, type 2 diabetes mellitus,? Obstructive sleep apnea on CPAP at nighttime.? Patient presents to the emergency room with complaints of scrotal swelling and pain for the last
--- NOTE | 2023-07-01 13:41 | PM.IMPN ---
Progress Note: A&P Assessment and Plan (1) Cellulitis of scrotum: Code(s): N49.2 - Inflammatory disorders of scrotum Status: Acute (2) Diabetes: Code(s): E11.9 - Type 2 diabetes mellitus without complications Status: Acute (3) (HFpEF) heart failure with preserved ejection fraction: Code(s): I50.30 - Unspecified diastolic (congestive) heart failure Status: Acute Assessment and Plan: monitor daily intake and output (4) Obesity hypoventilation syndrome: Code(s): E66.2 - Morbid (severe) obesity with alveolar hypoventilation Status: Acute (5) Obstructive sleep apnea on CPAP: Code(s): G47.33 - Obstructive sleep apnea (adult) (pediatric); Z99.89 - Dependence on other enabling machines and devices Status: Acute (6) Bilateral knee pain: Code(s): M25.561 - Pain in right knee; M25.562 - Pain in left knee Status: Acute Plan Sepsis empiric IV antibiotic therapy/Vanc, Rociphen, flaygl Monitor lactic acid levels q6hr. 2.2 POA back to normal Repeat CBC, CMP. Two sets of blood cultures pending urine cultures. C-reactive proteins 23.8 PTT and PT, INR. TTE if indicated. glucose monitoring and control Cellulitis of the scrotum Blood cultures NGTD Wound culture if open wound Imaging US: bilateral hydroceles and scrotal skin thickening Antibiotic regimen targeting patient's risk factors, adjust based on culture and sensitivity currently vancomycin and Rocephin and p.o. Flagyl Monitor IV hydration. scrotal hammock Urology consulted and following monitor urinary output may need straight cath if unable to void due to swelling Monitor vital signs and oxygen saturation. Recommended duration of antibiotic therapy for 7-10 days. Diabetes Accu-Cheks a.c. HS sliding scale insulin hold oral diabetic medications resume patient's home long-acting Hemoglobin A1c goal less than 7 Diabetic diet consult to dietitian encourage lifestyle modifications and weight loss Optimize Evangelist inhibitors and statins. Watch for hypoglycemia/hypoglycemic protocol ordered LEA CPAP at night per home settings encourage weight loss HFpEF Stable does not appear in exacerbation resume home medications including Lasix, Jardianc and, metoprolol Obesity encourage increased on physical activity and lifestyle modifications Stress monitoring and eating disorder evaluation. encourage outpatient weight loss clinic BMI . Diet exercise counseling done. consult to dietitian Code status: Full code per patient DVT prophylaxis: Lovenox Stress ulcer prophylaxis: Protonix 40 daily PT/OT notes: Ambulatory Disposition: continues admission for sepsis with out septic shock secondary to cellulitis of the scrotum. Monitor for down trend of WBC, Lactic acidosis resolved. monitor urinary output. Patient will discharge back to home when medically stable. Time Spent With Patient Time with patient: 25 - 35 minutes Subjective Date/time seen: 07/01/23 13:41 Interval history: H&P (Medical Record) Chief Complaint: ?? scrotal swelling Narrative: ?This is a 47-year-old male with past medical history significant for morbid obesity, hypertension, type 2 diabetes mellitus,? Obstructive sleep apnea on CPAP at nighttime.? Patient presents to the emergency room with complaints of scrotal swelling and pain for the last 4 days or so has had chills and fevers, has been able to void urine and to have bowel movements, no nausea no vomiting, no shortness of breath, no cough no sputum production.? Has been his usual state of health up until this point.? In emergency room patient was found to have moderate amount of scrotal swelling.? Patient was started on antibiotics.? Admit for further? evaluation, management and treatment 07/01: Patient continues to have severe scrotal swelling, WBC trended up today will adjust empiric ABX.. Merlene
[2023-07-01] MEDS: metroNIDAZOLE 500 MG TABLET PO ×2 (16:18→22:32)
[2023-07-01 17:34] LABS: Glucose Point of Care 94 mg/dl (65-105)
[2023-07-01] MEDS: cefTRIAXone 2 GM/NS 100 ML 2 GM/100 ML BAG IVPB (17:49)
[2023-07-01] MEDS: CALCIUM CARBONATE (TUMS) 500 MG (200 MG ELEMENTAL) PO (20:22)
[2023-07-01 22:53] LABS: Glucose Point of Care 90 mg/dl (65-105)
[2023-07-02] VITALS (13 sets, daily range): BP systolic 100–115; BP diastolic 44–56; PULSE 74–97; RESP 18; TEMP 36.4–37.2; O2SAT 92–97
[2023-07-02] MEDS: MORPHINE SULFATE (*CRX) 4 MG/ML INJ IV PUSH ×4 (01:57→15:24)
[2023-07-02] MEDS: metroNIDAZOLE 500 MG TABLET PO ×3 (05:31→20:49)
[2023-07-02] MEDS: LEVOTHYROXINE SODIUM 75 MCG TABLET PO (05:31)
[2023-07-02] MEDS: SODIUM CHLORIDE 0.9% IV 1,000 ML 100 ML IV CONT (05:35)
[2023-07-02 07:13] LABS: Hematocrit 33.9 % (42.0-52.0); Hemoglobin 10.7 g/dL (14.0-18.0); Mean Corpuscular HGB Conc 31.6 g/dl (32-36); Mean Corpuscular Hemoglobin 27.9 pg (26-34); Mean Corpuscular Volume 88.5 fl (80-100); Mean Platelet Volume 10.1 fl (7.4-10.4); Platelet Count Result 275 k/mm3 (150-375); Red Blood Count 3.83 M/mm3 (4.6-6.20); Red Cell Distribution Width 15.2 % (11.5-14.5); White Blood Count 23.7 K/mm3 (4.5-10.0)
[2023-07-02 07:22] LABS: Alanine Aminotransferase 32 U/L (6-50); Alkaline Phosphatase 149 U/L (38-126); Anion Gap 11 mmol/L (8-16); Aspartate Amino Transferase 44 U/L (17-59); Bilirubin,Total 0.6 mg/dL (0.2-1.3); Blood Urea Nitrogen 33 mg/dL (9-20); Calcium 7.9 mg/dL (8.4-10.2); Carbon Dioxide 17 mmol/L (22-30); Chloride 101 mmol/L (98-107); Estimated CRCL calculation 42 ml/min; Estimated Glomerular Filt Rate 21; Glucose 94 mg/dL (65-110); Potassium 4.1 mmol/L (3.4-5.0); Sodium 129 mmol/L (137-145)
[2023-07-02 07:28] LABS: Vancomycin Trough 23.3 ug/mL (10.0-20.0)
--- NOTE | 2023-07-02 07:39 | P.PNIM_ITS ---
Progress Note: A&P Assessment and Plan (1) Cellulitis of scrotum: Code(s): N49.2 - Inflammatory disorders of scrotum Status: Acute (2) Diabetes: Code(s): E11.9 - Type 2 diabetes mellitus without complications Status: Acute (3) (HFpEF) heart failure with preserved ejection fraction: Code(s): I50.30 - Unspecified diastolic (congestive) heart failure Status: Acute Assessment and Plan: monitor daily intake and output (4) Obesity hypoventilation syndrome: Code(s): E66.2 - Morbid (severe) obesity with alveolar hypoventilation Status: Acute (5) Obstructive sleep apnea on CPAP: Code(s): G47.33 - Obstructive sleep apnea (adult) (pediatric); Z99.89 - Dependence on other enabling machines and devices Status: Acute (6) Bilateral knee pain: Code(s): M25.561 - Pain in right knee; M25.562 - Pain in left knee Status: Acute Plan Sepsis * empiric IV antibiotic therapy/Vanc, Rociphen, flaygl * Monitor lactic acid levels q6hr. 2.2 POA back to normal * Repeat CBC, CMP. * Two sets of blood cultures Aerobic bottle gram positive cocci likely contaminated * urine cultures. * C-reactive proteins 23.8 * PTT and PT, INR. * TTE if indicated. * glucose monitoring and control Cellulitis * of the scrotum * Blood cultures Aerobic bottle gram positive cocci likely contaminated * Wound culture if open wound * Imaging US: bilateral hydroceles and scrotal skin thickening * Antibiotic regimen targeting patient's risk factors, adjust based on culture and sensitivity currently vancomycin and Rocephin and p.o. Flagyl * Monitor IV hydration. * scrotal hammock * Urology consulted and following * monitor urinary output may need straight cath if unable to void due to swelling * Monitor vital signs and oxygen saturation. * Recommended duration of antibiotic therapy for 7-10 days. Acute on chronic renal failure * Gentle IV hydration. * Cr 3.2 baseline around 1.4 * Secondary to urinary retention * poor urinary output * Benz catheter placed 07/02 * Avoid nephrotoxic drugs. * Monitor antihypertensive drug therapy. * Avoid NSAIDs. * Routine CMP monitoring GFR. * Monitor electrolytes especially potassium. * Antibiotic doses depending on creatinine clearance. * Pharmacy does medications. Diabetes * Accu-Cheks a.c. HS * sliding scale insulin * hold oral diabetic medications * resume patient's home long-acting * Hemoglobin A1c goal less than 7 * Diabetic diet * consult to dietitian * encourage lifestyle modifications and weight loss * Optimize Evangelist inhibitors and statins. * Watch for hypoglycemia/hypoglycemic protocol ordered LEA * CPAP at night per home settings * encourage weight loss HFpEF * Stable does not appear in exacerbation * resume home medications including Lasix, Jardianc and, metoprolol Obesity * encourage increased on physical activity and lifestyle modifications * Stress monitoring and eating disorder evaluation. * encourage outpatient weight loss clinic * BMI . * Diet exercise counseling done. * consult to dietitian Code status: Full code per patient DVT prophylaxis: Lovenox Stress ulcer prophylaxis: Protonix 40 daily PT/OT notes: Ambulatory Disposition: continues admission for sepsis with out septic shock secondary to cellulitis of the scrotum. Monitor for down trend of WBC, Lactic acidosis resolved. monitor urinary output. Patient will di
--- NOTE | 2023-07-02 07:39 | PM.IMPN ---
Progress Note: A&P Assessment and Plan (1) Cellulitis of scrotum: Code(s): N49.2 - Inflammatory disorders of scrotum Status: Acute (2) Diabetes: Code(s): E11.9 - Type 2 diabetes mellitus without complications Status: Acute (3) (HFpEF) heart failure with preserved ejection fraction: Code(s): I50.30 - Unspecified diastolic (congestive) heart failure Status: Acute Assessment and Plan: monitor daily intake and output (4) Obesity hypoventilation syndrome: Code(s): E66.2 - Morbid (severe) obesity with alveolar hypoventilation Status: Acute (5) Obstructive sleep apnea on CPAP: Code(s): G47.33 - Obstructive sleep apnea (adult) (pediatric); Z99.89 - Dependence on other enabling machines and devices Status: Acute (6) Bilateral knee pain: Code(s): M25.561 - Pain in right knee; M25.562 - Pain in left knee Status: Acute Plan Sepsis empiric IV antibiotic therapy/Vanc, Rociphen, flaygl Monitor lactic acid levels q6hr. 2.2 POA back to normal Repeat CBC, CMP. Two sets of blood cultures Aerobic bottle gram positive cocci likely contaminated urine cultures. C-reactive proteins 23.8 PTT and PT, INR. TTE if indicated. glucose monitoring and control Cellulitis of the scrotum Blood cultures Aerobic bottle gram positive cocci likely contaminated Wound culture if open wound Imaging US: bilateral hydroceles and scrotal skin thickening Antibiotic regimen targeting patient's risk factors, adjust based on culture and sensitivity currently vancomycin and Rocephin and p.o. Flagyl Monitor IV hydration. scrotal hammock Urology consulted and following monitor urinary output may need straight cath if unable to void due to swelling Monitor vital signs and oxygen saturation. Recommended duration of antibiotic therapy for 7-10 days. Acute on chronic renal failure Gentle IV hydration. Cr 3.2 baseline around 1.4 Secondary to urinary retention poor urinary output Benz catheter placed 07/02 Avoid nephrotoxic drugs. Monitor antihypertensive drug therapy. Avoid NSAIDs. Routine CMP monitoring GFR. Monitor electrolytes especially potassium. Antibiotic doses depending on creatinine clearance. Pharmacy does medications. Diabetes Accu-Cheks a.c. HS sliding scale insulin hold oral diabetic medications resume patient's home long-acting Hemoglobin A1c goal less than 7 Diabetic diet consult to dietitian encourage lifestyle modifications and weight loss Optimize Evangelist inhibitors and statins. Watch for hypoglycemia/hypoglycemic protocol ordered LEA CPAP at night per home settings encourage weight loss HFpEF Stable does not appear in exacerbation resume home medications including Lasix, Jardianc and, metoprolol Obesity encourage increased on physical activity and lifestyle modifications Stress monitoring and eating disorder evaluation. encourage outpatient weight loss clinic BMI . Diet exercise counseling done. consult to dietitian Code status: Full code per patient DVT prophylaxis: Lovenox Stress ulcer prophylaxis: Protonix 40 daily PT/OT notes: Ambulatory Disposition: continues admission for sepsis with out septic shock secondary to cellulitis of the scrotum. Monitor for down trend of WBC, Lactic acidosis resolved. monitor urinary output. Patient will discharge back to home when medically stable. Time Spent With Patient Time with patient: 25 - 35 minutes Subjective Date/time seen: 07/02/23 07:39 Interval history: H&P (Medical Record) Chief Complaint: ?? scrotal swelling Narrative: ?This is a 47-year-old male with past medical history significant for morbid obesity, hypertension, type 2 diabetes mellitus,? Obstructive sleep apnea on CPAP at nighttime.? Patient presents to the emergency room with complaints of scrotal swelling and pain for the l
[2023-07-02 07:59] LABS: Glucose Point of Care 79 mg/dl (65-105)
[2023-07-02] MEDS: ROSUVASTATIN 10 MG TABLET 20 MG PO (08:38)
[2023-07-02] MEDS: METOPROLOL TARTRATE 50 MG TAB 100 MG PO ×2 (08:39→20:49)
[2023-07-02] MEDS: IRBESARTAN 150 MG TABLET PO (08:39)
[2023-07-02] MEDS: TOLNAFTATE 1% POWDER 45 GM BTL 1 APPLIC TOPICAL ×2 (08:49→20:50)
--- NOTE | 2023-07-02 09:25 | WPDUROPN2 ---
Progress Note: A&P Assessment and Plan (1) Cellulitis of scrotum: Code(s): N49.2 - Inflammatory disorders of scrotum Status: Acute Assessment and Plan: Diffuse, marked scrotal cellulitis noted on exam without abscess. Pelvic CT and scrotal US unremarkable. No indication for surgical intervention at this time as there is no drainable abscess. Continue with broad spectrum antibiotics. There is no wound/drainage that can be collected for culture. Continue to elevate scrotum. Supportive care. (2) Sepsis: Qualifiers: Sepsis acute organ dysfunction status: unspecified Sepsis type: sepsis due to unspecified organism Qualified Code(s): A41.9 - Sepsis, unspecified organism Code(s): A41.9 - Sepsis, unspecified organism Status: Acute Assessment and Plan: Source of infection felt to be scrotal cellulitis as above. Preliminary blood cultures with gram positive cocci. WBC slightly improved today. Subjective Subjective Date/Time Seen: 07/02/23 09:25 Interval history: Riaz is doing fair today. He reports some improvement of his scrotal swelling. States his scrotum feels less heavy and tight. He denies nausea, vomiting, fever, chills. He has been able to urinate but required straight catheterization yesterday with only about 100 cc urine output. There are plans for payne catheter placement today for accurate I&O monitoring given worsened creatinine, up to 3.2 today. WBC has slightly improved, down to 23.7. Preliminary blood cultures with growth of gram positive cocci. Review of Systems Review of Systems: All systems reviewed & are unremarkable except as noted in HPI and below Exam Narrative: General: Awake, alert, comfortable, no acute distress HEENT: Normocephalic, atraumatic, sclerae anicteric Respiratory: Normal respiratory effort, no accessory muscle use Abdomen: Nondistended, soft, nontender : Massively swollen scrotum (left > right), diffusely erythematous, with tiny scab on left posterior scrotum without purulence or drainage, scrotum is firm, minimally tender to palpation with taut, tense skin. Weeping scant amount of serous fluid noted on bedsheets Skin: Normal coloration, warm and dry Neurologic: No focal neuro deficits noted Psychiatric: Appropriate mood and affect, judgment and insight intact Objective Data Vital Signs Vital Signs: Vital Signs - 24 hr 07/01/23 14:00 07/01/23 12:00 07/01/23 16:00 Temperature 98.2 F Pulse Rate 91 91 86 Respiratory Rate 16 Blood Pressure 101/50 L Pulse Oximetry 90 Oxygen Delivery 07/01/23 20:22 07/01/23 22:00 07/01/23 20:00 Temperature 99.2 F Pulse Rate 88 95 91 Respiratory Rate 18 Blood Pressure 98/53 L Pulse Oximetry 97 Oxygen Delivery 07/01/23 20:00 07/01/23 23:00 07/02/23 00:00 Temperature Pulse Rate 100 91 Respiratory Rate Blood Pressure Pulse Oximetry 96 Oxygen Delivery Room Air Autopap 07/02/23 02:07 07/02/23 04:00 07/02/23 05:39 Temperature 98.6 F Pulse Rate 97 89 87 Respiratory Rate 18 Blood Pressure 105/44 L Pulse Oximetry 97 92 Oxygen Delivery Autopap 07/02/23 08:07 07/02/23 08:39 Temperature Pulse Rate 89 Respiratory Rate Blood Pressure Pulse Oximetry 92 Oxygen Delivery CPAP Intake/Output Intake/Output: Intake & Output 06/29/23 06/30/23 07/01/23 07/02/23 23:59 23:59 23:59 23:59 Intake Total 1650 3420 1100 Output Total 600 200 Balance 1650 2820 900 Meds/Results Medications: Active Medications Generic Name Dose Route Start Last Admin Trade Name Freq PRN Reason Stop Dose Admin Acetaminophen 1,000 mg 07/01/23 03:03 Acetaminophen 500 Mg Tablet PO Q6H PRN Mild Pain (1-3) or Fever Calcium Carbonate 200 mg 07/01/23 19:41 07/01/23 20:22 Calcium Carbonate (Tums) 500 Mg (200 Mg Elemental) PO 200 mg Q6H PRN Administration Indigestion Dextrose 12.5 gm 06/30/23 23:03
[2023-07-02 12:33] LABS: Glucose Point of Care 93 mg/dl (65-105)
[2023-07-02] MEDS: VANCOMYCIN 1,500 MG/NS 500 ML 1,500 MG/500 ML BAG 250 MG IVPB (13:19)
[2023-07-02] MEDS: ACETAMINOPHEN 500 MG TABLET 1000 MG PO (13:19)
[2023-07-02 17:18] LABS: Glucose Point of Care 110 mg/dl (65-105)
[2023-07-02] MEDS: FUROSEMIDE INJ 40 MG/4 ML VIAL IV PUSH (17:38)
[2023-07-02] MEDS: cefTRIAXone 2 GM/NS 100 ML 2 GM/100 ML BAG IVPB (17:38)
[2023-07-02] MEDS: HYDROmorphone HCL INJ (*CRX) 1 MG/ML SYR IV PUSH (20:49)
[2023-07-03] VITALS (13 sets, daily range): BP systolic 117–132; BP diastolic 56–63; PULSE 76–92; RESP 16–18; TEMP 36.5–37.1; O2SAT 95–96
--- NOTE | 2023-07-03 | ECHO_ITS ---
Patient Info Name: Riaz Morgan Age: 47 years : 1975 Gender: Male Ht: 69 in Wt: 390 lbs BSA: 3.04 m2 HR: 81 bpm BP: 117 / 63 mmHg Heart Rhythm: Sinus Rhythm Technical Quality: Fair Exam Date: 07/03/2023 1:25 PM Exam Location: Echo Lab Patient Status: Inpatient Admit Date: 07/01/2023 Staff Ordering Physician: Radha Magaña APRN Secondary School Teacher Librarian: Rere Rivas RDCS Attending Provider: Oliver Black MD Referring Physician: Gómez PEREZ; Exam Type: CA echo dop color flow w con Study Info Indications - Staph aureus bacteremia rule ouit endocarditis Complete two-dimensional, color flow and Doppler transthoracic echocardiogram is performed with contrast to opacify the left ventricle and to improve the deliniation of the left ventricle endocardial borders. Contrast/Agitated Saline Contrast/Ag. Saline: Definity Amount: 2.00 ml Administered By: Rere Rivas RDCS Existing IV Access: Yes IV Access Condition: patent with no signs of infiltration Summary 1. Definity contrast administered improved wall motion interpretation. 2. Left ventricular systolic function is preserved, estimated at 50-55%. 3. Left ventricular chamber dimension is mildly enlarged. 4. The left ventricular diastolic function is grade I diastolic dysfunction. 5. E/e' 13 is mildly elevated. 6. Left atrial chamber dimension is mildly enlarged. 7. Right atrial chamber dimension is mildly enlarged. Left Ventricle E/e' 13 is mildly elevated. Definity contrast administered improved wall motion interpretation. Left ventricular systolic function is preserved, estimated at 50-55%. Left ventricular chamber dimension is mildly enlarged. The left ventricular diastolic function is grade I diastolic dysfunction. Right Ventricle Right ventricular systolic function is normal and with normal TAPSE 3.1 cm. Right ventricular chamber dimension is normal. Left Atria Left atrial chamber dimension is mildly enlarged. Right Atria Right atrial chamber dimension is mildly enlarged. Aortic Valve The aortic valve is trileaflet. There is no aortic valve stenosis. There is no aortic valve regurgitation. No aortic valve vegetation visualized. Pulmonic Valve There is no pulmonic regurgitation. No pulmonic valve vegetation visualized. Mitral Valve There is no mitral valve stenosis. There is no mitral valve regurgitation. No mitral valve vegetation visualized. Tricuspid Valve There is no tricuspid valve regurgitation. No tricuspid valve vegetation visualized. Pericardium/Pleural There is no pericardial effusion. Inferior Vena Cava Normal inferior vena cava with >50% collapse upon inspiration consistent with normal right atrial pressure, 5 mmHg. Aorta The aortic root size at the sinus of Valsalva is normal. Left Ventricular Outflow Tract Name Value Normal LVOT 2D LVOT Diameter 2.14 cm LVOT Doppler LVOT Peak Gradient 4 mmHg LVOT Mean Gradient 3 mmHg LVOT VTI 17.65 cm LVOT VTI/AV VTI Ratio 0.73 LVOT Stroke Volume 63.18 ml
[2023-07-03] MEDS: CALCIUM CARBONATE (TUMS) 500 MG (200 MG ELEMENTAL) PO (02:13)
[2023-07-03] MEDS: ACETAMINOPHEN 500 MG TABLET 1000 MG PO ×2 (02:13→12:09)
[2023-07-03] MEDS: HYDROmorphone HCL INJ (*CRX) 1 MG/ML SYR IV PUSH ×2 (02:13→20:47)
[2023-07-03] MEDS: SODIUM CHLORIDE 0.9% IV 1,000 ML 100 ML IV CONT ×2 (02:15→14:07)
[2023-07-03 05:22] LABS: Hemoglobin 11.8 g/dL (14.0-18.0); Mean Corpuscular HGB Conc 31.1 g/dl (32-36); Mean Corpuscular Hemoglobin 28.4 pg (26-34); Mean Corpuscular Volume 91.3 fl (80-100); Mean Platelet Volume 10.4 fl (7.4-10.4); Platelet Count Result 287 k/mm3 (150-375); Red Blood Count 4.16 M/mm3 (4.6-6.20); Red Cell Distribution Width 15.6 % (11.5-14.5); White Blood Count 28.2 K/mm3 (4.5-10.0)
[2023-07-03] MEDS: metroNIDAZOLE 500 MG TABLET PO ×3 (05:25→21:11)
[2023-07-03] MEDS: LEVOTHYROXINE SODIUM 75 MCG TABLET PO (05:25)
[2023-07-03 05:36] LABS: Alanine Aminotransferase 29 U/L (6-50); Alkaline Phosphatase 176 U/L (38-126); Anion Gap 12 mmol/L (8-16); Aspartate Amino Transferase 42 U/L (17-59); Bilirubin,Total 0.7 mg/dL (0.2-1.3); Blood Urea Nitrogen 41 mg/dL (9-20); Calcium 8.1 mg/dL (8.4-10.2); Carbon Dioxide 15 mmol/L (22-30); Chloride 104 mmol/L (98-107); Estimated CRCL calculation 32 ml/min; Estimated Glomerular Filt Rate 15; Glucose 97 mg/dL (65-110); Potassium 3.9 mmol/L (3.4-5.0); Sodium 131 mmol/L (137-145)
[2023-07-03 08:21] LABS: Glucose Point of Care 95 mg/dl (65-105)
--- NOTE | 2023-07-03 08:32 | P.PNIM_ITS ---
Progress Note: A&P Assessment and Plan (1) Cellulitis of scrotum: Code(s): N49.2 - Inflammatory disorders of scrotum Status: Acute (2) Diabetes: Qualifiers: Diabetes mellitus type: type 2 Diabetes mellitus fci insulin use: without parts counterman use Diabetes mellitus complication status: without complication Qualified Code(s): E11.9 - Type 2 diabetes mellitus without complications Code(s): E11.9 - Type 2 diabetes mellitus without complications Status: Acute (3) (HFpEF) heart failure with preserved ejection fraction: Code(s): I50.30 - Unspecified diastolic (congestive) heart failure Status: Acute Assessment and Plan: monitor daily intake and output (4) Obesity hypoventilation syndrome: Code(s): E66.2 - Morbid (severe) obesity with alveolar hypoventilation Status: Acute (5) Obstructive sleep apnea on CPAP: Code(s): G47.33 - Obstructive sleep apnea (adult) (pediatric); Z99.89 - Dependence on other enabling machines and devices Status: Acute (6) Bilateral knee pain: Code(s): M25.561 - Pain in right knee; M25.562 - Pain in left knee Status: Acute (7) Acute tubular necrosis: Code(s): N17.0 - Acute kidney failure with tubular necrosis Status: Acute (8) Urinary retention: Code(s): R33.9 - Retention of urine, unspecified Status: Acute (9) Sepsis: Qualifiers: Sepsis acute organ dysfunction status: unspecified Sepsis type: sepsis due to unspecified organism Qualified Code(s): A41.9 - Sepsis, unspecified organism Code(s): A41.9 - Sepsis, unspecified organism Status: Acute (10) Hydrocele, bilateral: Code(s): N43.3 - Hydrocele, unspecified Status: Acute (11) Hyponatremia: Code(s): E87.1 - Hypo-osmolality and hyponatremia Status: Acute (12) Bacteremia: Code(s): R78.81 - Bacteremia Status: Acute Plan Sepsis * empiric IV antibiotic therapy/Vanc, Rociphen, flaygl * Monitor lactic acid levels q6hr. 2.2 POA back to normal * Repeat CBC, CMP. * Two sets of blood cultures gram+ cocci * urine cultures. * C-reactive proteins 23.8 * PTT and PT, INR. * TTE if indicated. * glucose monitoring and control * 07/03: * WBC with no improvement * bacteremia * 2nd set blood cultures pending * CRP F/U * ECHO pending Cellulitis * of the scrotum * Blood cultures gram+ cocci * Wound culture if open wound * Imaging US: bilateral hydroceles and scrotal skin thickening * Antibiotic regimen targeting patient's risk factors, adjust based on culture and sensitivity currently vancomycin and Rocephin and p.o. Flagyl * Monitor IV hydration. * scrotal hammock * Urology consulted and following * monitor urinary output may need straight cath if unable to void due to swelling * Monitor vital signs and oxygen saturation. * Recommended duration of antibiotic therapy for 7-10 days. 07/03: * WBC with no improvement * bacteremia * 2nd set blood cultures pending * CRP F/U * Swelling improving Urinary Retention * Secondary to scrotal swelling/Kidney injury * urology following as well as consulted nephrology worsening Cr * Indwelling catheter placed * Monitor urinary output Bacteremia * Staph aureus * 2nd set blood cultures pending * on Vanc/Ceftriaxone/flaygl * ECHO pending Acute on chronic renal failure/ATN? * Gentle IV hydration. * Cr 3.2 baseline around 1.4 * Secondary to urinar
--- NOTE | 2023-07-03 08:32 | PM.IMPN ---
Progress Note: A&P Assessment and Plan (1) Cellulitis of scrotum: Code(s): N49.2 - Inflammatory disorders of scrotum Status: Acute (2) Diabetes: Qualifiers: Diabetes mellitus type: type 2 Diabetes mellitus usp insulin use: without watermaster use Diabetes mellitus complication status: without complication Qualified Code(s): E11.9 - Type 2 diabetes mellitus without complications Code(s): E11.9 - Type 2 diabetes mellitus without complications Status: Acute (3) (HFpEF) heart failure with preserved ejection fraction: Code(s): I50.30 - Unspecified diastolic (congestive) heart failure Status: Acute Assessment and Plan: monitor daily intake and output (4) Obesity hypoventilation syndrome: Code(s): E66.2 - Morbid (severe) obesity with alveolar hypoventilation Status: Acute (5) Obstructive sleep apnea on CPAP: Code(s): G47.33 - Obstructive sleep apnea (adult) (pediatric); Z99.89 - Dependence on other enabling machines and devices Status: Acute (6) Bilateral knee pain: Code(s): M25.561 - Pain in right knee; M25.562 - Pain in left knee Status: Acute (7) Acute tubular necrosis: Code(s): N17.0 - Acute kidney failure with tubular necrosis Status: Acute (8) Urinary retention: Code(s): R33.9 - Retention of urine, unspecified Status: Acute (9) Sepsis: Qualifiers: Sepsis acute organ dysfunction status: unspecified Sepsis type: sepsis due to unspecified organism Qualified Code(s): A41.9 - Sepsis, unspecified organism Code(s): A41.9 - Sepsis, unspecified organism Status: Acute (10) Hydrocele, bilateral: Code(s): N43.3 - Hydrocele, unspecified Status: Acute (11) Hyponatremia: Code(s): E87.1 - Hypo-osmolality and hyponatremia Status: Acute (12) Bacteremia: Code(s): R78.81 - Bacteremia Status: Acute Plan Sepsis empiric IV antibiotic therapy/Vanc, Rociphen, flaygl Monitor lactic acid levels q6hr. 2.2 POA back to normal Repeat CBC, CMP. Two sets of blood cultures gram+ cocci urine cultures. C-reactive proteins 23.8 PTT and PT, INR. TTE if indicated. glucose monitoring and control 07/03: WBC with no improvement bacteremia 2nd set blood cultures pending CRP F/U ECHO pending Cellulitis of the scrotum Blood cultures gram+ cocci Wound culture if open wound Imaging US: bilateral hydroceles and scrotal skin thickening Antibiotic regimen targeting patient's risk factors, adjust based on culture and sensitivity currently vancomycin and Rocephin and p.o. Flagyl Monitor IV hydration. scrotal hammock Urology consulted and following monitor urinary output may need straight cath if unable to void due to swelling Monitor vital signs and oxygen saturation. Recommended duration of antibiotic therapy for 7-10 days. 07/03: WBC with no improvement bacteremia 2nd set blood cultures pending CRP F/U Swelling improving Urinary Retention Secondary to scrotal swelling/Kidney injury urology following as well as consulted nephrology worsening Cr Indwelling catheter placed Monitor urinary output Bacteremia Staph aureus 2nd set blood cultures pending on Vanc/Ceftriaxone/flaygl ECHO pending Acute on chronic renal failure/ATN? Gentle IV hydration. Cr 3.2 baseline around 1.4 Secondary to urinary retention poor urinary output Benz catheter placed 07/02 Avoid nephrotoxic drugs. Monitor antihypertensive drug therapy. Avoid NSAIDs. Routine CMP monitoring GFR. Monitor electrolytes especially potassium. Antibiotic doses depending on creatinine clearance. Pharmacy does medications. 07/03: Concern for ATN Cr 4.2 with casts Nephrology consulted Vancomycin renal dosing Diabetes Accu-Cheks a.c. HS sliding scale insulin hold oral diabetic medications resume patie
[2023-07-03] MEDS: ROSUVASTATIN 10 MG TABLET 20 MG PO (08:39)
[2023-07-03] MEDS: METOPROLOL TARTRATE 50 MG TAB 100 MG PO (08:39)
[2023-07-03] MEDS: IRBESARTAN 150 MG TABLET PO (08:39)
[2023-07-03] MEDS: EMPAGLIFLOZIN 10 MG TABLET PO (08:39)
[2023-07-03] MEDS: TOLNAFTATE 1% POWDER 45 GM BTL 1 APPLIC TOPICAL ×2 (08:44→20:40)
[2023-07-03] MEDS: HEPARIN SODIUM 5,000 UNITS/ML VIAL 5000 UNITS SUB-Q ×2 (08:57→20:40)
[2023-07-03] MEDS: MORPHINE SULFATE (*CRX) 4 MG/ML INJ IV PUSH ×2 (08:57→18:41)
[2023-07-03 09:04] LABS: Glucose Point of Care 91 mg/dl (65-105)
[2023-07-03 09:27] LABS: CRP 23.2 mg/dL (<1.0)
--- NOTE | 2023-07-03 09:49 | WPDUROPN2 ---
Progress Note: A&P Assessment and Plan (1) Cellulitis of scrotum: Code(s): N49.2 - Inflammatory disorders of scrotum Status: Acute Assessment and Plan: Diffuse, marked scrotal cellulitis noted on exam without abscess. Slight improvement in swelling noted today. Pelvic CT and scrotal US unremarkable. No indication for surgical intervention at this time as there is no drainable abscess. Continue with broad spectrum antibiotics. There is no wound/drainage that can be collected for culture. Continue to elevate scrotum. Supportive care. (2) Sepsis: Qualifiers: Sepsis acute organ dysfunction status: unspecified Sepsis type: sepsis due to unspecified organism Qualified Code(s): A41.9 - Sepsis, unspecified organism Code(s): A41.9 - Sepsis, unspecified organism Status: Acute Assessment and Plan: Source of infection felt to be scrotal cellulitis as above. Preliminary blood cultures with gram positive cocci. WBC slightly improved today. Subjective Subjective Date/Time Seen: 07/03/23 09:49 Interval history: Very reports slight improvement in his scrotal discomfort today. States it is worse when he was to move around in bed. Has been elevating his scrotum. Denies nausea, vomiting, fever, or chills. Reports he slept well last night. His white blood cell count has increased again today to 28.2. Creatinine continues to worsen, 4.2 today. He is afebrile and his vital signs are stable. Review of Systems Review of Systems: All systems reviewed & are unremarkable except as noted in HPI and below Exam Narrative: General: Awake, alert, comfortable, no acute distress HEENT: Normocephalic, atraumatic, sclerae anicteric Respiratory: Normal respiratory effort, no accessory muscle use Abdomen: Nondistended, soft, nontender : Massively swollen scrotum, diffusely erythematous, with tiny scab on left posterior scrotum without purulence or drainage, scrotum is firm (some improvement in this noted today), minimally tender to palpation with taut, tense skin. Weeping scant amount of serous fluid noted on bedsheets Skin: Normal coloration, warm and dry Neurologic: No focal neuro deficits noted Psychiatric: Appropriate mood and affect, judgment and insight intact Objective Data Vital Signs Vital Signs: Vital Signs - 24 hr 07/02/23 14:00 07/02/23 12:00 07/02/23 16:00 Temperature 98.9 F Pulse Rate 76 83 74 Respiratory Rate 18 Blood Pressure 100/48 L Pulse Oximetry 94 Oxygen Delivery Fraction of Inspired Oxygen 07/02/23 20:49 07/02/23 20:00 07/02/23 20:00 Temperature Pulse Rate 90 80 Respiratory Rate Blood Pressure Pulse Oximetry Oxygen Delivery CPAP Fraction of Inspired Oxygen 07/02/23 22:38 07/03/23 00:00 07/03/23 04:00 Temperature 97.5 F L Pulse Rate 78 92 85 Respiratory Rate 18 Blood Pressure 115/56 L Pulse Oximetry 95 Oxygen Delivery Fraction of Inspired Oxygen 07/03/23 07:44 07/03/23 06:00 07/03/23 08:39 Temperature 98.6 F Pulse Rate 79 81 Respiratory Rate 18 Blood Pressure 117/63 Pulse Oximetry 96 96 Oxygen Delivery Room Air Fraction of Inspired Oxygen 07/03/23 08:47 Temperature Pulse Rate Respiratory Rate Blood Pressure Pulse Oximetry Oxygen Delivery Room Air Fraction of Inspired Oxygen Intake/Output Intake/Output: Intake & Output 06/30/23 07/01/23 07/02/23 07/03/23 23:59 23:59 23:59 23:59 Intake Total 1650 3420 3560 550 Output Total 575 900 1063 Balance 1650 2820 3035 -650 Meds/Results Medications: Active Medications Generic Name Dose Route Start Last Admin Trade Name Freq PRN Reason Stop Dose Admin Acetaminophen 1,000 mg 07/01/23 03:03 07/03/23 02:13 Acetaminophen 500 Mg Tablet PO 1,000 mg Q6H PRN Administration Mild Pain (1-3) or Fever Calcium Carbonate 200 mg 07/01/23 19:41 07/03/23 02:13 Calcium Carbonate (Tums) 50
--- NOTE | 2023-07-03 10:50 | P.CONNP_ITS ---
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 * relative hypotension on admission * urinary retention * check renal ultrasound, urine studies, and CPK * hold irbesartan * continue trial of IVFs * at risk for COURT OPERATIONS CLERK/dialysis * follow trend of repeat labs and UOP (2) Sepsis: Qualifiers: Sepsis acute organ dysfunction status: unspecified Sepsis type: sepsis due to unspecified organism Qualified Code(s): A41.9 - Sepsis, unspecified organism Code(s): A41.9 - Sepsis, unspecified organism Status: Acute Assessment and Plan: * felt to be secondary to #3 * positive blood cultures noted * on IV antibiotics * stable hemodynamics at this time * continue current therapy (3) Cellulitis of scrotum: Code(s): N49.2 - Inflammatory disorders of scrotum Status: Acute Assessment and Plan: * as noted by admission exam * CT scan and scrotal U/S results noted * Urology following * no surgical intervention needed at this time * scrotal elevation * continue supportive therapy (4) Bacteremia: Code(s): R78.81 - Bacteremia Status: Acute Assessment and Plan: * see #2 (5) HTN (hypertension): Code(s): I10 - Essential (primary) hypertension Status: Chronic Assessment and Plan: * stable hemodynamics noted * follow closely given #2 (6) Diabetes: Qualifiers: Diabetes mellitus type: type 2 Diabetes mellitus jail insulin use: without jail use Diabetes mellitus complication status: without complication Qualified Code(s): E11.9 - Type 2 diabetes mellitus without complications Code(s): E11.9 - Type 2 diabetes mellitus without complications Status: Acute Assessment and Plan: * holding oral hypoglycemics * follow accu-cheks * glycemic control per hospitalists Long and extensive discussion (greater than 20 minutes) with the patient at bedside regarding his worsening renal dysfunction as noted by the trend of his labs since admission. I voiced my concerns that if his kidney function natalie nues to deteriorate or if he runs into issues/ problems with critical electrolyte abnormalities, worsening acidosis, volume overload, or uremia, he may require renal replacement therapy / dialysis which she voiced understanding to. Hopefully, with continued supportive therapy his kidney function will start to improve but only time will tell. I will continue follow the patient with you while remains hospitalized make further recommendations as deemed necessary. Thank you for allowing me to participate in the care this patient. History of Present Illness Reason for Consult Consult date: 07/03/23 Reason for consult: acute renal failure Chief Complaint Chief complaint: Sepsis, Cellulitis of Scrotum, Lactic Acidosis History of Present Illness Narrative: The patient is a 47-year-old male with a past medical history as outlined below who presented to [facility] Emergency Room from his PCPs office for complaints ongoing of scrotal swelling and pain. The patient initially noted scrotal discomfort about a week ago when he was climbing into his truck and sat down. Later that day when he got home, and he examined hi
--- NOTE | 2023-07-03 10:50 | PM.CNNEP ---
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/dialysis follow trend of repeat labs and UOP (2) Sepsis: Qualifiers: Sepsis acute organ dysfunction status: unspecified Sepsis type: sepsis due to unspecified organism Qualified Code(s): A41.9 - Sepsis, unspecified organism Code(s): A41.9 - Sepsis, unspecified organism Status: Acute Assessment and Plan: felt to be secondary to #3 positive blood cultures noted on IV antibiotics stable hemodynamics at this time continue current therapy (3) Cellulitis of scrotum: Code(s): N49.2 - Inflammatory disorders of scrotum Status: Acute Assessment and Plan: as noted by admission exam CT scan and scrotal U/S results noted Urology following no surgical intervention needed at this time scrotal elevation continue supportive therapy (4) Bacteremia: Code(s): R78.81 - Bacteremia Status: Acute Assessment and Plan: see #2 (5) HTN (hypertension): Code(s): I10 - Essential (primary) hypertension Status: Chronic Assessment and Plan: stable hemodynamics noted follow closely given #2 (6) Diabetes: Qualifiers: Diabetes mellitus type: type 2 Diabetes mellitus half-way insulin use: without half-way use Diabetes mellitus complication status: without complication Qualified Code(s): E11.9 - Type 2 diabetes mellitus without complications Code(s): E11.9 - Type 2 diabetes mellitus without complications Status: Acute Assessment and Plan: holding oral hypoglycemics follow accu-cheks glycemic control per hospitalists Long and extensive discussion (greater than 20 minutes) with the patient at bedside regarding his worsening renal dysfunction as noted by the trend of his labs since admission. I voiced my concerns that if his kidney function continues to deteriorate or if he runs into issues/ problems with critical electrolyte abnormalities, worsening acidosis, volume overload, or uremia, he may require renal replacement therapy / dialysis which she voiced understanding to. Hopefully, with continued supportive therapy his kidney function will start to improve but only time will tell. I will continue follow the patient with you while remains hospitalized make further recommendations as deemed necessary. Thank you for allowing me to participate in the care this patient. History of Present Illness Reason for Consult Consult date: 07/03/23 Reason for consult: acute renal failure Chief Complaint Chief complaint: Sepsis, Cellulitis of Scrotum, Lactic Acidosis History of Present Illness Narrative: The patient is a 47-year-old male with a past medical history as outlined below who presented to [facility] Emergency Room from his PCPs office for complaints ongoing of scrotal swelling and pain. The patient initially noted scrotal discomfort about a week ago when he was climbing into his truck and sat down. Later that day when he got home, and he examined his scrotal area, he thought he noted what appeared to be an ingrown hair on his left posterior scrotal area and tried to remove this. After he popped it, he did not note any specific drainage or discharge from this intervention. however, following this intervention, he started notice gross swelling which continued to progressively get worse over the last 4 days. In the interim, he apparently went to [facility] ER for this issue cira
[2023-07-03 12:47] LABS: Glucose Point of Care 106 mg/dl (65-105)
[2023-07-03 13:37] LABS: Vancomycin Trough 20.1 ug/mL (10.0-20.0)
[2023-07-03] MEDS: PERFLUTREN LIPID MICROSPHERES 1.5 ML VIAL DILUTED TO 10 ML TOTAL VOLUME IV PUSH (13:57)
[2023-07-03] MEDS: cefTRIAXone 2 GM/NS 100 ML 2 GM/100 ML BAG IVPB (17:34)
[2023-07-03 17:46] LABS: Glucose Point of Care 106 mg/dl (65-105)
[2023-07-03] MEDS: VANCOMYCIN 1,500 MG/NS 500 ML 1,500 MG/500 ML BAG 250 MG IVPB (20:40)
[2023-07-04] VITALS (11 sets, daily range): BP systolic 101–129; BP diastolic 49–65; PULSE 83–104; RESP 16–22; TEMP 36.5–38.1; O2SAT 93–96
[2023-07-04] MEDS: SODIUM CHLORIDE 0.9% IV 1,000 ML 100 ML IV CONT ×3 (02:13→20:29)
[2023-07-04] MEDS: HYDROmorphone HCL INJ (*CRX) 1 MG/ML SYR IV PUSH ×2 (02:13→14:57)
[2023-07-04 04:49] LABS: Creatinine Urine 129.8 mg/dL; Total Protein Urine Random 78 mg/dL; Urea Random Urine 414 MG/DL
[2023-07-04 05:05] LABS: Sodium Urine Random 12 meq/L
[2023-07-04] MEDS: ACETAMINOPHEN 500 MG TABLET 1000 MG PO ×2 (05:22→20:18)
[2023-07-04] MEDS: LEVOTHYROXINE SODIUM 75 MCG TABLET PO (05:22)
[2023-07-04] MEDS: metroNIDAZOLE 500 MG TABLET PO ×4 (05:22→22:09)
[2023-07-04 05:23] LABS: Hematocrit 36.8 % (42.0-52.0); Hemoglobin 11.6 g/dL (14.0-18.0); Mean Corpuscular HGB Conc 31.5 g/dl (32-36); Mean Corpuscular Hemoglobin 27.9 pg (26-34); Mean Corpuscular Volume 88.5 fl (80-100); Mean Platelet Volume 9.8 fl (7.4-10.4); Platelet Count Result 337 k/mm3 (150-375); Red Blood Count 4.16 M/mm3 (4.6-6.20); Red Cell Distribution Width 15.7 % (11.5-14.5); White Blood Count 30.1 K/mm3 (4.5-10.0)
[2023-07-04] MEDS: MORPHINE SULFATE (*CRX) 4 MG/ML INJ IV PUSH ×2 (05:23→20:20)
[2023-07-04 05:46] LABS: Eosinophil Urine None Seen % (None Seen); Urine Eos QC 2nd Tech Confirmed
[2023-07-04 06:17] LABS: Alanine Aminotransferase 25 U/L (6-50); Albumin Level 2.9 g/dL (3.5-5.1); Alkaline Phosphatase 230 U/L (38-126); Anion Gap 10 mmol/L (8-16); Aspartate Amino Transferase 48 U/L (17-59); Bilirubin,Total 0.6 mg/dL (0.2-1.3); Blood Urea Nitrogen 42 mg/dL (9-20); Calcium 8.2 mg/dL (8.4-10.2); Carbon Dioxide 17 mmol/L (22-30); Chloride 105 mmol/L (98-107); Creatine Kinase 74 U/L (55-170); Estimated CRCL calculation 29 ml/min; Estimated Glomerular Filt Rate 14; Glucose 103 mg/dL (65-110); Potassium 4.1 mmol/L (3.4-5.0); Sodium 132 mmol/L (137-145)
[2023-07-04 06:40] LABS: Hepatitis B Surface Antigen Negative (Negative)
[2023-07-04 06:57] LABS: Hepatitis B Surface Anti Res Negative
[2023-07-04 07:41] LABS: Glucose Point of Care 126 mg/dl (65-105)
[2023-07-04 08:27] LABS: Glucose Point of Care 87 mg/dl (65-105)
[2023-07-04] MEDS: ROSUVASTATIN 10 MG TABLET 20 MG PO (09:31)
[2023-07-04] MEDS: EMPAGLIFLOZIN 10 MG TABLET PO (09:31)
[2023-07-04] MEDS: METOPROLOL TARTRATE 50 MG TAB 100 MG PO ×2 (09:32→20:19)
[2023-07-04] MEDS: HEPARIN SODIUM 5,000 UNITS/ML VIAL 5000 UNITS SUB-Q ×2 (09:32→20:19)
[2023-07-04] MEDS: TOLNAFTATE 1% POWDER 45 GM BTL 1 APPLIC TOPICAL ×2 (09:33→20:20)
--- NOTE | 2023-07-04 12:18 | PM.PNNEP ---
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 relative hypotension on admission urinary retention evaluation to date: renal ultrasound pending urine electrolytes pre-renal urine eosinophils CPK normal moderate proteinuria holding irbesartan gentle IVFs remains at risk for AUTOMOTIVE PORTER/dialysis follow trend of repeat labs and UOP (2) Sepsis: Qualifiers: Sepsis acute organ dysfunction status: unspecified Sepsis type: sepsis due to unspecified organism Qualified Code(s): A41.9 - Sepsis, unspecified organism Code(s): A41.9 - Sepsis, unspecified organism Status: Acute Assessment and Plan: felt to be secondary to #3 positive blood cultures noted - Staph aureus follow repeat blood cultures on IV antibiotics stable hemodynamics at this time continue current therapy (3) Cellulitis of scrotum: Code(s): N49.2 - Inflammatory disorders of scrotum Status: Acute Assessment and Plan: as noted by admission exam CT scan and scrotal U/S results noted Urology following since now with draining wound, possible need for I&D(?) scrotal elevation continue supportive therapy (4) Bacteremia: Code(s): R78.81 - Bacteremia Status: Acute Assessment and Plan: see #2 (5) HTN (hypertension): Code(s): I10 - Essential (primary) hypertension Status: Chronic Assessment and Plan: stable hemodynamics noted follow closely given #2 (6) Diabetes: Qualifiers: Diabetes mellitus type: type 2 Diabetes mellitus supervisor intermediates insulin use: without supervisor intermediates use Diabetes mellitus complication status: without complication Qualified Code(s): E11.9 - Type 2 diabetes mellitus without complications Code(s): E11.9 - Type 2 diabetes mellitus without complications Status: Acute Assessment and Plan: holding oral hypoglycemics follow accu-cheks glycemic control per hospitalists Will continue to follow. Subjective Date/time seen: 07/04/23 12:18 Interval history: Follow-up for acute kidney injury/acute renal failure. States he feels slight better today at the time of my visit; unfortunately, his renal function/creatinine continues to worsen but he is still making reasonable urine output without any critical electrolyte abnormalities; now noted to have some scant drainage from underside scrotal wound (which was not present before); pain control appears satisfactory but notes that it is worse my any significant movement; no other issues overnight or earlier this morning. Exam Narrative: General: large WD/WN male in NAD Heart: normal S1 and S2; no rub Lungs: clear to auscultation Abdomen: soft, nontender, nondistended, positive bowel sounds; +scrotal edema with some weeping Extremities: no cyanosis or clubbing; no edema Skin: warm and dry Objective Data Vital Signs Vital Signs: Vital Signs Temp Pulse Resp BP Pulse Ox O2 Del Method FiO2 07/04/23 12:00 97.7 F 87 20 129/65 07/04/23 09:32 89 Room Air 07/04/23 09:15 86 07/04/23 08:00 86 Room Air 07/04/23 06:00 98.2 F 94 16 101/49 L 93 07/03/23 23:00 96 Room Air 07/03/23 23:00 89 96 Autopap 07/04/23 04:04 90 07/04/23 00:05 98 07/03/23 22:00 98.7 F 89 16 132/56 L 95 07/03/23 20:04 87 07/03/23 20:40 76 16 96 Room Air 07/03/23 20:40 76 Intake/Output Intake/Output: Intake & Output 07/01/23 07/02/23 07/03/23 07/04/23 23:59 23:59 23:59 23:59 Intake Total 3420 3560 1850 2340 Output Total 280 214 1274 1350
--- NOTE | 2023-07-04 12:18 | P.PNNP_ITS ---
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 * relative hypotension on admission * urinary retention * evaluation to date: * renal ultrasound pending * urine electrolytes pre-renal * urine eosinophils * CPK normal * moderate proteinuria * holding irbesartan * gentle IVFs * remains at 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 for 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/dialysis * follow trend of repeat labs and UOP (2) Sepsis: Qualifiers: Sepsis acute organ dysfunction status: unspecified Sepsis type: sepsis due to unspecified organism Qualified Code(s): A41.9 - Sepsis, unspecified organism Code(s): A41.9 - Sepsis, unspecified organism Status: Acute Assessment and Plan: * felt to be secondary to #3 * positive blood cultures noted - Staph aureus * follow repeat blood cultures * on IV antibiotics * stable hemodynamics at this time * continue current therapy (3) Cellulitis of scrotum: Code(s): N49.2 - Inflammatory disorders of scrotum Status: Acute Assessment and Plan: * as noted by admission exam * CT scan and scrotal U/S results noted * Urology following * since now with draining wound, possible need for I&D(?) * scrotal elevation * continue supportive therapy (4) Bacteremia: Code(s): R78.81 - Bacteremia Status: Acute Assessment and Plan: * see #2 (5) HTN (hypertension): Code(s): I10 - Essential (primary) hypertension Status: Chronic Assessment and Plan: * stable hemodynamics noted * follow closely given #2 (6) Diabetes: Qualifiers: Diabetes mellitus type: type 2 Diabetes mellitus intermediate school teacher insulin use: without intermediate school teacher use Diabetes mellitus complication status: without complication Qualified Code(s): E11.9 - Type 2 diabetes mellitus without complications Code(s): E11.9 - Type 2 diabetes mellitus without complications Status: Acute Assessment and Plan: * holding oral hypoglycemics * follow accu-cheks * glycemic control per hospitalists Will continue to follow. Subjective Date/time seen: 07/04/23 12:18 Interval history: Follow-up for acute kidney injury/acute renal failure. States he feels slight better today at the time of my visit; unfortunately, his renal function/creatinine continues to worsen but he is still making reasonable urine output without any critical electrolyte abnormalities; now noted to have some scant drainage from underside scrotal wound (which was not present before); pain control appears satisfactory but notes that it is worse my any significant movement; no other issues overnight or earlier this morning. Exam Narrative: General: large WD/WN male in NAD Heart: normal S1 and S2; no rub Lungs: clear to auscultation Abdomen: soft, nontender, nondistended, positive bowel sounds; +scrotal edema with some weeping Extremities: no cyanosis or clubbing; no edema Skin: warm and dry Objective Data Vital Signs Vital Signs: Vital Signs Temp Pulse Resp BP Pulse Ox O2 Del Method FiO2 07/04/23
[2023-07-04 12:46] LABS: Glucose Point of Care 107 mg/dl (65-105)
[2023-07-04] MEDS: SACCHAROMYCES BOULARDII 250 MG CAPSULE PO ×2 (13:28→17:17)
--- NOTE | 2023-07-04 14:29 | P.PNIM_ITS ---
Progress Note: A&P Assessment and Plan (1) Cellulitis of scrotum: Code(s): N49.2 - Inflammatory disorders of scrotum Status: Acute (2) Diabetes: Qualifiers: Diabetes mellitus type: type 2 Diabetes mellitus residential insulin use: without superintendent container terminal use Diabetes mellitus complication status: without complication Qualified Code(s): E11.9 - Type 2 diabetes mellitus without complications Code(s): E11.9 - Type 2 diabetes mellitus without complications Status: Acute (3) (HFpEF) heart failure with preserved ejection fraction: Code(s): I50.30 - Unspecified diastolic (congestive) heart failure Status: Acute Assessment and Plan: monitor daily intake and output (4) Obesity hypoventilation syndrome: Code(s): E66.2 - Morbid (severe) obesity with alveolar hypoventilation Status: Acute (5) Obstructive sleep apnea on CPAP: Code(s): G47.33 - Obstructive sleep apnea (adult) (pediatric); Z99.89 - Dependence on other enabling machines and devices Status: Acute (6) Bilateral knee pain: Code(s): M25.561 - Pain in right knee; M25.562 - Pain in left knee Status: Acute (7) Acute tubular necrosis: Code(s): N17.0 - Acute kidney failure with tubular necrosis Status: Acute (8) Urinary retention: Code(s): R33.9 - Retention of urine, unspecified Status: Acute (9) Sepsis: Qualifiers: Sepsis acute organ dysfunction status: unspecified Sepsis type: sepsis due to unspecified organism Qualified Code(s): A41.9 - Sepsis, unspecified organism Code(s): A41.9 - Sepsis, unspecified organism Status: Acute (10) Hydrocele, bilateral: Code(s): N43.3 - Hydrocele, unspecified Status: Acute (11) Hyponatremia: Code(s): E87.1 - Hypo-osmolality and hyponatremia Status: Acute (12) Bacteremia: Code(s): R78.81 - Bacteremia Status: Acute Plan Sepsis * empiric IV antibiotic therapy/Vanc, Rociphen, flaygl * Monitor lactic acid levels q6hr. 2.2 POA back to normal * Repeat CBC, CMP. * Two sets of blood cultures Staph aureus * urine cultures. * C-reactive proteins 23.8 * PTT and PT, INR. * TTE * glucose monitoring and control * 07/03: * WBC with no improvement * bacteremia possible contamination * 2nd set blood cultures pending * CRP F/U * ECHO no acute findings 07/04: * WBC 30 * Cr. 4.6 * cultures pending Cellulitis * of the scrotum * Blood cultures gram+ cocci * Wound culture if open wound * Imaging US: bilateral hydroceles and scrotal skin thickening * Antibiotic regimen targeting patient's risk factors, adjust based on culture and sensitivity currently vancomycin and Rocephin and p.o. Flagyl * Monitor IV hydration. * scrotal hammock * Urology consulted and following * monitor urinary output may need straight cath if unable to void due to swel ling * Monitor vital signs and oxygen saturation. * Recommended duration of antibiotic therapy for 7-10 days. 07/03: * WBC with no improvement * bacteremia * 2nd set blood cultures pending * CRP F/U * Swelling improving 07/04: * WBC 30 * draining wound to underside of scrotum * wound culture sent * F/U US pending to see if there is a drainable abscess Urinary Retention * Secondary to scrotal swelling/Kidney injury * urology following as well as consulted nephrology worsening Cr * Indwelling catheter placed * Monitor urinary output Bacteremia * S
--- NOTE | 2023-07-04 14:29 | PM.IMPN ---
Progress Note: A&P Assessment and Plan (1) Cellulitis of scrotum: Code(s): N49.2 - Inflammatory disorders of scrotum Status: Acute (2) Diabetes: Qualifiers: Diabetes mellitus type: type 2 Diabetes mellitus penitentiary insulin use: without fitness supervisor use Diabetes mellitus complication status: without complication Qualified Code(s): E11.9 - Type 2 diabetes mellitus without complications Code(s): E11.9 - Type 2 diabetes mellitus without complications Status: Acute (3) (HFpEF) heart failure with preserved ejection fraction: Code(s): I50.30 - Unspecified diastolic (congestive) heart failure Status: Acute Assessment and Plan: monitor daily intake and output (4) Obesity hypoventilation syndrome: Code(s): E66.2 - Morbid (severe) obesity with alveolar hypoventilation Status: Acute (5) Obstructive sleep apnea on CPAP: Code(s): G47.33 - Obstructive sleep apnea (adult) (pediatric); Z99.89 - Dependence on other enabling machines and devices Status: Acute (6) Bilateral knee pain: Code(s): M25.561 - Pain in right knee; M25.562 - Pain in left knee Status: Acute (7) Acute tubular necrosis: Code(s): N17.0 - Acute kidney failure with tubular necrosis Status: Acute (8) Urinary retention: Code(s): R33.9 - Retention of urine, unspecified Status: Acute (9) Sepsis: Qualifiers: Sepsis acute organ dysfunction status: unspecified Sepsis type: sepsis due to unspecified organism Qualified Code(s): A41.9 - Sepsis, unspecified organism Code(s): A41.9 - Sepsis, unspecified organism Status: Acute (10) Hydrocele, bilateral: Code(s): N43.3 - Hydrocele, unspecified Status: Acute (11) Hyponatremia: Code(s): E87.1 - Hypo-osmolality and hyponatremia Status: Acute (12) Bacteremia: Code(s): R78.81 - Bacteremia Status: Acute Plan Sepsis empiric IV antibiotic therapy/Vanc, Rociphen, flaygl Monitor lactic acid levels q6hr. 2.2 POA back to normal Repeat CBC, CMP. Two sets of blood cultures Staph aureus urine cultures. C-reactive proteins 23.8 PTT and PT, INR. TTE glucose monitoring and control 07/03: WBC with no improvement bacteremia possible contamination 2nd set blood cultures pending CRP F/U ECHO no acute findings 07/04: WBC 30 Cr. 4.6 cultures pending Cellulitis of the scrotum Blood cultures gram+ cocci Wound culture if open wound Imaging US: bilateral hydroceles and scrotal skin thickening Antibiotic regimen targeting patient's risk factors, adjust based on culture and sensitivity currently vancomycin and Rocephin and p.o. Flagyl Monitor IV hydration. scrotal hammock Urology consulted and following monitor urinary output may need straight cath if unable to void due to swelling Monitor vital signs and oxygen saturation. Recommended duration of antibiotic therapy for 7-10 days. 07/03: WBC with no improvement bacteremia 2nd set blood cultures pending CRP F/U Swelling improving 07/04: WBC 30 draining wound to underside of scrotum wound culture sent F/U US pending to see if there is a drainable abscess Urinary Retention Secondary to scrotal swelling/Kidney injury urology following as well as consulted nephrology worsening Cr Indwelling catheter placed Monitor urinary output Bacteremia Staph aureus 2nd set blood cultures pending on Vanc/Ceftriaxone/flaygl ECHO no vegetation Acute on chronic renal failure/ATN? Gentle IV hydration. Cr 3.2 baseline around 1.4 Secondary to urinary retention poor urinary output Benz catheter placed 07/02 Avoid nephrotoxic drugs. Monitor antihypertensive drug therapy. Avoid NSAIDs. Routine CMP monitoring GFR. Monitor electrolytes especially potassium. Antibiotic doses depending on creatinine clearance. Pharmacy does medications.
--- NOTE | 2023-07-04 15:14 | PCPTNOTE ---
Per OT: The patient initial evaluation was not able to be completed on 07/04/2023 due to RN stating to hold due to medications just provided and patient finally resting. Will plan to evaluate patient when appropriate.
[2023-07-04] MEDS: cefTRIAXone 2 GM/NS 100 ML 2 GM/100 ML BAG IVPB (17:17)
[2023-07-04 17:29] LABS: Glucose Point of Care 100 mg/dl (65-105)
[2023-07-04 20:52] LABS: Vancomycin Random 21.2 ug/mL (10-20)
[2023-07-05] VITALS (12 sets, daily range): BP systolic 125–129; BP diastolic 56–68; PULSE 73–104; RESP 20; TEMP 36.5–36.9; O2SAT 93–98
[2023-07-05] MEDS: MORPHINE SULFATE (*CRX) 4 MG/ML INJ IV PUSH ×2 (05:09→19:27)
[2023-07-05] MEDS: metroNIDAZOLE 500 MG TABLET PO ×2 (05:09→13:00)
[2023-07-05] MEDS: SODIUM CHLORIDE 0.9% IV 1,000 ML 100 ML IV CONT (05:15)
[2023-07-05] MEDS: LEVOTHYROXINE SODIUM 75 MCG TABLET PO (05:33)
[2023-07-05 06:08] LABS: Hematocrit 38.9 % (42.0-52.0); Hemoglobin 11.9 g/dL (14.0-18.0); Mean Corpuscular HGB Conc 30.6 g/dl (32-36); Mean Corpuscular Hemoglobin 27.6 pg (26-34); Mean Corpuscular Volume 90.3 fl (80-100); Mean Platelet Volume 9.9 fl (7.4-10.4); Platelet Count Result 313 k/mm3 (150-375); Red Blood Count 4.31 M/mm3 (4.6-6.20); Red Cell Distribution Width 15.9 % (11.5-14.5); White Blood Count 28.4 K/mm3 (4.5-10.0)
[2023-07-05 06:27] LABS: Alanine Aminotransferase 21 U/L (6-50); Albumin Level 2.6 g/dL (3.5-5.1); Alkaline Phosphatase 237 U/L (38-126); Anion Gap 10 mmol/L (8-16); Aspartate Amino Transferase 39 U/L (17-59); Bilirubin,Total 0.5 mg/dL (0.2-1.3); Blood Urea Nitrogen 43 mg/dL (9-20); Carbon Dioxide 15 mmol/L (22-30); Chloride 108 mmol/L (98-107); Estimated CRCL calculation 31 ml/min; Estimated Glomerular Filt Rate 14; Glucose 101 mg/dL (65-110); Potassium 4.1 mmol/L (3.4-5.0); Sodium 133 mmol/L (137-145)
[2023-07-05 08:11] LABS: Glucose Point of Care 91 mg/dl (65-105)
--- NOTE | 2023-07-05 09:38 | PCPTNOTE ---
Attempted to do evaluation, but secondary to pain unable to get EOB or OOB, Physical therapy will check again tomorrow.
[2023-07-05] MEDS: HEPARIN SODIUM 5,000 UNITS/ML VIAL 5000 UNITS SUB-Q ×2 (09:49→20:34)
[2023-07-05] MEDS: EMPAGLIFLOZIN 10 MG TABLET PO (09:49)
[2023-07-05] MEDS: SACCHAROMYCES BOULARDII 250 MG CAPSULE PO ×3 (09:49→16:09)
[2023-07-05] MEDS: ROSUVASTATIN 10 MG TABLET 20 MG PO (09:50)
[2023-07-05] MEDS: METOPROLOL TARTRATE 50 MG TAB 100 MG PO ×2 (09:50→20:34)
[2023-07-05] MEDS: TOLNAFTATE 1% POWDER 45 GM BTL 1 APPLIC TOPICAL ×2 (09:52→20:34)
[2023-07-05] MEDS: HYDROmorphone HCL INJ (*CRX) 1 MG/ML SYR IV PUSH ×2 (10:09→16:09)
--- NOTE | 2023-07-05 11:11 | PCOTNOTE ---
Per PT, unable to do evaluation secondary to pain. Therefore, unable to get EOB or OOB, Occupational therapy will check again tomorrow.
[2023-07-05 11:32] LABS: Glucose Point of Care 113 mg/dl (65-105)
--- NOTE | 2023-07-05 12:42 | P.PNIM_ITS ---
Progress Note: A&P Assessment and Plan (1) Cellulitis of scrotum: Code(s): N49.2 - Inflammatory disorders of scrotum Status: Acute (2) Diabetes: Qualifiers: Diabetes mellitus type: type 2 Diabetes mellitus group home insulin use: without long term care phlebotomist use Diabetes mellitus complication status: without complication Qualified Code(s): E11.9 - Type 2 diabetes mellitus without complications Code(s): E11.9 - Type 2 diabetes mellitus without complications Status: Acute (3) (HFpEF) heart failure with preserved ejection fraction: Code(s): I50.30 - Unspecified diastolic (congestive) heart failure Status: Acute Assessment and Plan: monitor daily intake and output (4) Obesity hypoventilation syndrome: Code(s): E66.2 - Morbid (severe) obesity with alveolar hypoventilation Status: Acute (5) Obstructive sleep apnea on CPAP: Code(s): G47.33 - Obstructive sleep apnea (adult) (pediatric); Z99.89 - Dependence on other enabling machines and devices Status: Acute (6) Bilateral knee pain: Code(s): M25.561 - Pain in right knee; M25.562 - Pain in left knee Status: Acute (7) Acute tubular necrosis: Code(s): N17.0 - Acute kidney failure with tubular necrosis Status: Acute (8) Urinary retention: Code(s): R33.9 - Retention of urine, unspecified Status: Acute (9) Sepsis: Qualifiers: Sepsis acute organ dysfunction status: unspecified Sepsis type: sepsis due to unspecified organism Qualified Code(s): A41.9 - Sepsis, unspecified organism Code(s): A41.9 - Sepsis, unspecified organism Status: Acute (10) Hydrocele, bilateral: Code(s): N43.3 - Hydrocele, unspecified Status: Acute (11) Hyponatremia: Code(s): E87.1 - Hypo-osmolality and hyponatremia Status: Acute (12) Bacteremia: Code(s): R78.81 - Bacteremia Status: Acute Plan Sepsis * empiric IV antibiotic therapy/Vanc, Rociphen, flaygl * Monitor lactic acid levels q6hr. 2.2 POA back to normal * Repeat CBC, CMP. * Two sets of blood cultures Staph aureus * urine cultures. * C-reactive proteins 23.8 * PTT and PT, INR. * TTE * glucose monitoring and control * 07/03: * WBC with no improvement * bacteremia possible contamination * 2nd set blood cultures pending * CRP F/U * ECHO no acute findings 07/04: * WBC 30 * Cr. 4.6 * cultures pending 07/05: * WBC finally trending down * Renal function also trending down 4.4 Cellulitis * of the scrotum * Blood cultures gram+ cocci * Wound culture if open wound * Imaging US: bilateral hydroceles and scrotal skin thickening * Antibiotic regimen targeting patient's risk factors, adjust based on culture and sensitivity currently vancomycin and Rocephin and p.o. Flagyl * Monitor IV hydration. * scrotal hammock * Urology consulted and following * monitor urinary output may need straight cath if unable to void due to swelling * Monitor vital signs and oxygen saturation. * Recommended duration of antibiotic therapy for 7-10 days. 07/03: * WBC with no improvement * bacteremia * 2nd set blood cultures pending * CRP F/U * Swelling improving 07/04: * WBC 30 * draining wound to underside of scrotum * wound culture sent * F/U US pending to see if there is a drainable abscess 07/05: * Follow-up ultrasound showing severe and moderate hydrocele she may benefit from either aspiration or drainage * WBC trending humble
--- NOTE | 2023-07-05 12:42 | PM.IMPN ---
Progress Note: A&P Assessment and Plan (1) Cellulitis of scrotum: Code(s): N49.2 - Inflammatory disorders of scrotum Status: Acute (2) Diabetes: Qualifiers: Diabetes mellitus type: type 2 Diabetes mellitus shelter insulin use: without exterminator termite use Diabetes mellitus complication status: without complication Qualified Code(s): E11.9 - Type 2 diabetes mellitus without complications Code(s): E11.9 - Type 2 diabetes mellitus without complications Status: Acute (3) (HFpEF) heart failure with preserved ejection fraction: Code(s): I50.30 - Unspecified diastolic (congestive) heart failure Status: Acute Assessment and Plan: monitor daily intake and output (4) Obesity hypoventilation syndrome: Code(s): E66.2 - Morbid (severe) obesity with alveolar hypoventilation Status: Acute (5) Obstructive sleep apnea on CPAP: Code(s): G47.33 - Obstructive sleep apnea (adult) (pediatric); Z99.89 - Dependence on other enabling machines and devices Status: Acute (6) Bilateral knee pain: Code(s): M25.561 - Pain in right knee; M25.562 - Pain in left knee Status: Acute (7) Acute tubular necrosis: Code(s): N17.0 - Acute kidney failure with tubular necrosis Status: Acute (8) Urinary retention: Code(s): R33.9 - Retention of urine, unspecified Status: Acute (9) Sepsis: Qualifiers: Sepsis acute organ dysfunction status: unspecified Sepsis type: sepsis due to unspecified organism Qualified Code(s): A41.9 - Sepsis, unspecified organism Code(s): A41.9 - Sepsis, unspecified organism Status: Acute (10) Hydrocele, bilateral: Code(s): N43.3 - Hydrocele, unspecified Status: Acute (11) Hyponatremia: Code(s): E87.1 - Hypo-osmolality and hyponatremia Status: Acute (12) Bacteremia: Code(s): R78.81 - Bacteremia Status: Acute Plan Sepsis empiric IV antibiotic therapy/Vanc, Rociphen, flaygl Monitor lactic acid levels q6hr. 2.2 POA back to normal Repeat CBC, CMP. Two sets of blood cultures Staph aureus urine cultures. C-reactive proteins 23.8 PTT and PT, INR. TTE glucose monitoring and control 07/03: WBC with no improvement bacteremia possible contamination 2nd set blood cultures pending CRP F/U ECHO no acute findings 07/04: WBC 30 Cr. 4.6 cultures pending 07/05: WBC finally trending down Renal function also trending down 4.4 Cellulitis of the scrotum Blood cultures gram+ cocci Wound culture if open wound Imaging US: bilateral hydroceles and scrotal skin thickening Antibiotic regimen targeting patient's risk factors, adjust based on culture and sensitivity currently vancomycin and Rocephin and p.o. Flagyl Monitor IV hydration. scrotal hammock Urology consulted and following monitor urinary output may need straight cath if unable to void due to swelling Monitor vital signs and oxygen saturation. Recommended duration of antibiotic therapy for 7-10 days. 07/03: WBC with no improvement bacteremia 2nd set blood cultures pending CRP F/U Swelling improving 07/04: WBC 30 draining wound to underside of scrotum wound culture sent F/U US pending to see if there is a drainable abscess 07/05: Follow-up ultrasound showing severe and moderate hydrocele she may benefit from either aspiration or drainage WBC trending down will attempt to deescalate antibiotic therapy Urinary Retention Secondary to scrotal swelling/Kidney injury urology following as well as consulted nephrology worsening Cr Indwelling catheter placed Monitor urinary output Bacteremia Staph aureus 2nd set blood cultures pending on Vanc/Ceftriaxone/flaygl ECHO no vegetation 07/05: Possible contamination 2nd set no growth Acute on chronic renal failure/ATN? Gentle IV hydration. Cr 3.2 baseline around 1.4 Secondary to urinary
[2023-07-05] MEDS: SODIUM BICARBONATE TAB 650 MG TABLET PO ×2 (13:03→16:09)
--- NOTE | 2023-07-05 13:50 | PM.PNNEP ---
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 urinary retention evaluation to date: renal ultrasound pending urine electrolytes pre-renal urine eosinophils CPK normal moderate proteinuria holding irbesartan gentle IVFs as tolerated follow trend of repeat labs and UOP (2) Sepsis: Qualifiers: Sepsis acute organ dysfunction status: unspecified Sepsis type: sepsis due to unspecified organism Qualified Code(s): A41.9 - Sepsis, unspecified organism Code(s): A41.9 - Sepsis, unspecified organism Status: Acute Assessment and Plan: felt to be secondary to #3 positive blood cultures noted - Staph aureus follow repeat blood cultures on IV antibiotics stable hemodynamics at this time continue current therapy (3) Cellulitis of scrotum: Code(s): N49.2 - Inflammatory disorders of scrotum Status: Acute Assessment and Plan: as noted by admission exam CT scan and scrotal U/S results noted Urology following since now with draining wound, possible need for I&D(?) scrotal elevation continue supportive therapy (4) Bacteremia: Code(s): R78.81 - Bacteremia Status: Acute Assessment and Plan: see #2 (5) HTN (hypertension): Code(s): I10 - Essential (primary) hypertension Status: Chronic Assessment and Plan: stable hemodynamics noted follow closely given #2 (6) Diabetes: Qualifiers: Diabetes mellitus type: type 2 Diabetes mellitus care home insulin use: without 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 Subjective Date/time seen: 07/05/23 13:50 Interval history: Follow-up for acute kidney injury/acute renal failure. Still having considerable scrotal pain with any type of movement although pain medication do help to some degree; continues to note posterior drainage from scrotal wound; slight improvement in renal function by AM labs and continues to make reasonable urine output; elevated WBC persists as noted by AM labs. Exam Narrative: General: large WD/WN male in NAD Heart: normal S1 and S2; no rub Lungs: clear to auscultation Abdomen: soft, nontender, nondistended, positive bowel sounds; +scrotal edema with posterior drainage Extremities: no cyanosis or clubbing; no edema Skin: warm and intact Objective Data Vital Signs Vital Signs: Vital Signs Temp Pulse Resp BP Pulse Ox O2 Del Method 07/05/23 13:36 97.7 F 77 20 128/56 L 94 07/05/23 09:50 84 07/05/23 06:00 98.2 F 77 20 129/68 98 07/05/23 04:26 104 H 07/05/23 00:00 73 07/05/23 02:30 Autopap 07/04/23 22:40 96 96 Autopap 07/04/23 20:00 104 H 07/04/23 20:33 100.6 F H 102 H 22 H 116/55 L 96 Intake/Output Intake/Output: Intake & Output 07/02/23 07/03/23 07/04/23 07/05/23 23:59 23:59 23:59 23:59 Intake Total 3560 1850 3540 2800 Output Total 525 1950 2300 900 Balance 3035 -100 1240 1900 Meds/Results Medications: Active Medications Generic Name Dose Route Start Last Admin Trade Name Freq PRN Reason Stop Dose Admin Acetaminophen 1,000 mg 07/01/23 03:03 07/04/23 20:18 Acetaminophen 500 Mg Tablet PO 1,000 mg Q6H NC
--- NOTE | 2023-07-05 13:50 | P.PNNP_ITS ---
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 admission * urinary retention * evaluation to date: * renal ultrasound pending * urine electrolytes pre-renal * urine eosinophils * CPK normal * moderate proteinuria * holding irbesartan * gentle IVFs as tolerated * follow trend of repeat labs and UOP (2) Sepsis: Qualifiers: Sepsis acute organ dysfunction status: unspecified Sepsis type: sepsis due to unspecified organism Qualified Code(s): A41.9 - Sepsis, unspecified organism Code(s): A41.9 - Sepsis, unspecified organism Status: Acute Assessment and Plan: * felt to be secondary to #3 * positive blood cultures noted - Staph aureus * follow repeat blood cultures * on IV antibiotics * stable hemodynamics at this time * continue current therapy (3) Cellulitis of scrotum: Code(s): N49.2 - Inflammatory disorders of scrotum Status: Acute Assessment and Plan: * as noted by admission exam * CT scan and scrotal U/S results noted * Urology following * since now with draining wound, possible need for I&D(?) * scrotal elevation * continue supportive therapy (4) Bacteremia: Code(s): R78.81 - Bacteremia Status: Acute Assessment and Plan: * see #2 (5) HTN (hypertension): Code(s): I10 - Essential (primary) hypertension Status: Chronic Assessment and Plan: * stable hemodynamics noted * follow closely given #2 (6) Diabetes: Qualifiers: Diabetes mellitus 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 Subjective Date/time seen: 07/05/23 13:50 Interval history: Follow-up for acute kidney injury/acute renal failure. Still having considerable scrotal pain with any type of movement although pain medication do help to some degree; continues to note posterior drainage from scrotal wound; slight improvement in renal function by AM labs and continues to make reasonable urine output; elevated WBC persists as noted by AM labs. Exam Narrative: General: large WD/WN male in NAD Heart: normal S1 and S2; no rub Lungs: clear to auscultation Abdomen: soft, nontender, nondistended, positive bowel sounds; +scrotal edema with posterior drainage Extremities: no cyanosis or clubbing; no edema Skin: warm and intact Objective Data Vital Signs Vital Signs: Vital Signs Temp Pulse Resp BP Pulse Ox O2 Del Method 07/05/23 13:36 97.7 F 77 20 128/56 L 94 07/05/23 09:50 84 07/05/23 06:00 98.2 F 77 20 129/68 98
[2023-07-05] MEDS: OXACILLIN SODIUM 2 GM in SODIUM CHLORIDE 0.9% IV 100 ML IVPB ×2 (16:17→20:34)
[2023-07-05] MEDS: SODIUM CHLORIDE 0.9% IV 1,000 ML 75 ML IV CONT (16:19)
[2023-07-05] MEDS: cefTRIAXone 2 GM/NS 100 ML 2 GM/100 ML BAG IVPB (17:55)
[2023-07-05] MEDS: CALCIUM CARBONATE (TUMS) 500 MG (200 MG ELEMENTAL) PO (18:51)
--- NOTE | 2023-07-05 19:23 | ECG_ITS ---
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
[2023-07-05] MEDS: ONDANSETRON INJ 4 MG/2 ML VIAL IV PUSH (19:27)
--- NOTE | 2023-07-05 19:59 | P.PNCROSS_ITS ---
Event Note Event Note Event Note: 07/05/2023 19:45 S: I received a call from the patient's nurse around 19:00. Patient called out and reported sudden onset of left anterior chest pain. He describes this as sharp and stabbing in nature and is worse with deep breath. He denies associated sweats, lightheadedness, shortness of breath, nausea, and vomiting. He has never had similar symptoms. O: Ill-appearing male in the semi-Fregoso position in bed. Vital signs stable. EKG shows sinus rhythm with left bundle branch block, which is new compared to a tracing from 2021. Regular rate and rhythm. Reproducible tenderness over the left anterior chest wall. Lung sounds are diminished due to body habitus. Abdomen is morbidly obese. Trace lower extremity edema. Negative Ruth sign. A/P: Chest pain. Patient describes pleuritic chest pain but it is also reproducible on palpation of the chest wall. He has no discomfort after receiving morphine 4 mg. Chest x-ray showed probable atelectasis and mild edema. Hold IV fluids for now. EKG showed left bundle-branch block which is new compared to tracings from 2021. Echocardiogram obtained 2 days ago showed no wall motion abnormalities, preserved EF of 50 to 55%, and grade 1 diastolic dysf unction. His initial troponin and acute coronary syndrome seems unlikely however troponins will be trended given EKG findings. D-dimer was elevated at 12.51 and with his symptoms this is concerning for possible pulmonary embolism. He is unable to received IV contrast given acute kidney injury. He has thus been started on a heparin drip and V/Q scan has been ordered for a.m. as well as lower extremity venous Doppler ultrasounds. He will need cardiology follow-up for the left bundle branch block as he will likely need and ischemic evaluation at some point. Critical Care Time Critical Care Time: Yes Total Critical Care Time: 35 Attestation: Due to a high probability of clinically significant, life threatening deterioration, the patient required my highest level of preparedness to intervene emergently and I personally spent this critical care time directly and personally managing the patient. This critical care time included obtaining a history; examining the patient; pulse oximetry; ordering and review of studies; arranging urgent treatment with development of a management plan; evaluation of patient's response to treatment; frequent reassessment; and discussions with other providers. It was exclusive of separately billable procedures and treating other patients and teaching time. Please see Assessment and Plan section and the rest of the note for further information on patient assessment and treatment.
[2023-07-05 20:01] LABS: Hematocrit 39.6 % (42.0-52.0); Hemoglobin 12.3 g/dL (14.0-18.0); Mean Corpuscular HGB Conc 31.1 g/dl (32-36); Mean Corpuscular Hemoglobin 27.6 pg (26-34); Mean Corpuscular Volume 88.8 fl (80-100); Mean Platelet Volume 9.7 fl (7.4-10.4); Platelet Count Result 397 k/mm3 (150-375); Red Blood Count 4.46 M/mm3 (4.6-6.20); Red Cell Distribution Width 16.2 % (11.5-14.5); White Blood Count 28.9 K/mm3 (4.5-10.0)
[2023-07-05 20:12] LABS: Anion Gap 10 mmol/L (8-16); Blood Urea Nitrogen 44 mg/dL (9-20); Calcium 8.1 mg/dL (8.4-10.2); Carbon Dioxide 18 mmol/L (22-30); Chloride 107 mmol/L (98-107); Estimated CRCL calculation 32 ml/min; Estimated Glomerular Filt Rate 15; Glucose 120 mg/dL (65-110); Potassium 3.7 mmol/L (3.4-5.0); Sodium 135 mmol/L (137-145)
[2023-07-05 20:13] LABS: Band Neutrophils Percent 5 % (0-6); Eosinophils Absolute Manual 0.28 K/mm3 (0.02-0.5); Eosinophils Percent Manual 1 % (0-4); Lymphocytes Absolute Manual 2.02 K/mm3 (1.1-4.5); Lymphocytes Percent Manual 7 % (18-44); Metamyelocytes Percent 2 %; Monocytes Absolute Manual 2.89 K/mm3 (0.1-0.90); Monocytes Percent Manual 10 % (3-9); Neutrophils Absolute Manual 23.12 K/mm3 (1.3-6.7); Neutrophils Percent Manual 75 % (46-73); Platelet Estimate Increased (Adequate); Schistocytes None Seen (NORMAL); Total Cells Counted 100
[2023-07-05 20:23] LABS: NT Pro B Type Natriuretic Pept 3920 pg/mL (19.9-100); Troponin I < 0.012 ng/mL (0.000-0.034)
[2023-07-05 20:26] LABS: D Dimer 12.51 ug/mL (<0.48)
[2023-07-05 21:39] LABS: INR 1.2; Prothrombin Time 15.8 Seconds (11.1-14.7)
[2023-07-05 21:40] LABS: Partial Thromboplastin Time 35.4 SECONDS (22.3-36.8)
[2023-07-05] MEDS: HEPARIN SOD/D5W 100 UNITS/ML 25,000 UNITS/250 ML BAG 15 UNITS IV CONT (22:16)
[2023-07-06] VITALS (30 sets, daily range): BP systolic 103–135; BP diastolic 46–78; PULSE 57–88; RESP 14–24; TEMP 35.6–36.8; O2SAT 89–98
[2023-07-06] MEDS: OXACILLIN SODIUM 2 GM in SODIUM CHLORIDE 0.9% IV 100 ML IVPB ×6 (02:12→21:34)
[2023-07-06 04:29] LABS: Basophils Absolute Auto 0.2 K/mm3 (0.0-0.1); Basophils Percent Auto 0.8 % (0.2-1.2); Eosinophils Absolute Auto 0.5 K/mm3 (0-0.3); Eosinophils Percent Auto 1.6 % (0-4.4); Hematocrit 36.4 % (42.0-52.0); Hemoglobin 11.3 g/dL (14.0-18.0); Immature Granulocyte Absolute 1.36 K/mm3 (0.00-0.031); Immature Granulocyte Percent A 4.7 % (0-0.5); Lymphocytes Absolute Auto 2.02 K/mm3 (0.9-3.2); Lymphocytes Percent Auto 6.9 % (18.3-44.2); Mean Corpuscular Hemoglobin 27.4 pg (26-34); Mean Corpuscular Volume 88.1 fl (80-100); Mean Platelet Volume 9.6 fl (7.4-10.4); Monocytes Absolute Auto 2.3 K/mm3 (0.1-0.6); Neutrophils Absolute Auto 22.8 K/mm3 (1.3-6.7); Nucleated Red Blood Cells Perc 0.1 % (0.0-0.2); Platelet Count Result 380 k/mm3 (150-375); Red Blood Count 4.13 M/mm3 (4.6-6.20); Red Cell Distribution Width 16.2 % (11.5-14.5); White Blood Count 29.1 K/mm3 (4.5-10.0)
[2023-07-06 04:41] LABS: Partial Thromboplastin Time 44.3 SECONDS (22.3-36.8)
[2023-07-06] MEDS: HYDROmorphone HCL INJ (*CRX) 1 MG/ML SYR IV PUSH ×2 (04:52→08:19)
[2023-07-06 04:53] LABS: Alanine Aminotransferase 19 U/L (6-50); Albumin Level 2.4 g/dL (3.5-5.1); Alkaline Phosphatase 195 U/L (38-126); Anion Gap 8 mmol/L (8-16); Aspartate Amino Transferase 32 U/L (17-59); Bilirubin,Total 0.3 mg/dL (0.2-1.3); Blood Urea Nitrogen 44 mg/dL (9-20); Calcium 8.1 mg/dL (8.4-10.2); Carbon Dioxide 17 mmol/L (22-30); Chloride 110 mmol/L (98-107); Estimated CRCL calculation 36 ml/min; Estimated Glomerular Filt Rate 17; Glucose 114 mg/dL (65-110); Potassium 3.7 mmol/L (3.4-5.0); Sodium 135 mmol/L (137-145)
[2023-07-06 05:01] LABS: Platelet Estimate Increased (Adequate)
[2023-07-06 05:02] LABS: Anisocytosis 1+ (NORMAL); Platelet Clumps Present
[2023-07-06 05:03] LABS: Burr Cells 1+ (NORMAL); Schistocytes None Seen (NORMAL)
[2023-07-06] MEDS: HEPARIN SODIUM 5,000 UNITS/ML VIAL 4500 UNITS IV PUSH (05:42)
--- NOTE | 2023-07-06 08:08 | WPDUROPN2 ---
Progress Note: A&P Assessment and Plan (1) Cellulitis of scrotum: Code(s): N49.2 - Inflammatory disorders of scrotum Status: Acute (2) Scrotal abscess: Code(s): N49.2 - Inflammatory disorders of scrotum Status: Acute Plan I discussed with patient. We need to do a washout and an incision and drainage. Mainly I think the scrotal wound needs to be opened further. This will allow for better wound care. He will likely need a wound VAC. I have asked the nurses to call the hospitalist to hold his heparin drip. We planned the procedure this afternoon. Patient is in agreement. Subjective Subjective Date/Time Seen: 07/06/23 08:08 Interval history: He has a persistently elevated white count. He is now on heparin drip. He had episode of chest pain last night. Examination today reveals an open and draining scrotal abscess. Exam Narrative: He is morbidly obese with very limited mobility. He has a hidden phallus. his scrotum is open in the inferior portion. It is draining purulence. I am able to probe for several inches in the subcutaneous scrotal tissues. I feel the abscess area is likely draining, but we very difficult wound care due to the small opening on the inferior part of the scrotum. There were some skin changes but no necrosis. His scrotum is markedly edematous. Objective Data Vital Signs Vital Signs: Vital Signs - 24 hr 07/05/23 09:50 07/05/23 13:36 07/05/23 09:50 Temperature 97.7 F Pulse Rate 84 77 Respiratory Rate 20 Blood Pressure 128/56 L Pulse Oximetry 94 Oxygen Delivery Room Air Fraction of Inspired Oxygen 07/05/23 12:00 07/05/23 16:00 07/05/23 20:34 Temperature Pulse Rate 79 81 80 Respiratory Rate Blood Pressure Pulse Oximetry Oxygen Delivery Fraction of Inspired Oxygen 07/05/23 20:30 07/05/23 20:00 07/05/23 22:00 Temperature 98.4 F Pulse Rate 91 80 88 Respiratory Rate 20 Blood Pressure 125/68 Pulse Oximetry 97 93 Oxygen Delivery Autopap Fraction of Inspired Oxygen 07/06/23 01:53 07/06/23 04:51 07/06/23 04:00 Temperature 97.8 F Pulse Rate 88 74 67 Respiratory Rate 20 Blood Pressure 108/59 L Pulse Oximetry 97 91 Oxygen Delivery Autopap Fraction of Inspired Oxygen 07/06/23 05:24 07/06/23 07:56 Temperature Pulse Rate 67 Respiratory Rate Blood Pressure Pulse Oximetry 91 Oxygen Delivery Room Air Fraction of Inspired Oxygen 21 Intake/Output Intake/Output: Intake & Output 07/03/23 07/04/23 07/05/23 07/06/23 23:59 23:59 23:59 23:59 Intake Total 1850 3540 3000 550 Output Total 1950 2300 2050 975 Balance -100 1240 950 -425 Meds/Results Medications: Active Medications Generic Name Dose Route Start Last Admin Trade Name Freq PRN Reason Stop Dose Admin Acetaminophen 1,000 mg 07/01/23 03:03 07/04/23 20:18 Acetaminophen 500 Mg Tablet PO 1,000 mg Q6H PRN Administration Mild Pain (1-3) or Fever Calcium Carbonate 200 mg 07/01/23 19:41 07/05/23 18:51 Calcium Carbonate (Tums) 500 Mg (200 Mg Elemental) PO 200 mg Q6H PRN Administration Indigestion Dextrose 12.5 gm 06/30/23 23:03 Dextrose 50% 25 Gm/50 Ml Syringe IV PUSH PRN PRN Hypoglycemia Protocol Empagliflozin 10 mg 07/01/23 09:00 07/05/23 09:49 Empagliflozin 10 Mg Tablet PO 10 mg DAILY DILEEP Administration Glucagon 1 mg 06/30/23 23:03 Glucagon For Inj 1 Mg Vial IM PRN PRN Hypoglycemia Protocol Glucose 15 gm 06/30/23 23:03 Glucose Oral Gel 15 Gm Of Glucse In 37.5 Gm Tube PO PRN PRN Hypoglycemia Protocol Heparin Sodium (Porcine) 5,000 units 07/03/23 09:00 07/05/23 20:34 Heparin Sodium 5,000 Units/Ml Vial SUB-Q 5,000 units Q12HR DILEEP Administration Heparin Sodium (Porcine) 4,500 units 07/05/23 21:16 07/06/23 05:42 Heparin Sodium 5,000 Units/Ml Vial IV PUSH 4,500 units PRN PRN Administrat
[2023-07-06] MEDS: traMADol HCL (*CRX) 50 MG TABLET PO (08:18)
[2023-07-06] MEDS: ROSUVASTATIN 10 MG TABLET 20 MG PO (08:18)
[2023-07-06] MEDS: SODIUM BICARBONATE TAB 650 MG TABLET PO (08:18)
[2023-07-06] MEDS: METOPROLOL TARTRATE 50 MG TAB 100 MG PO ×2 (08:18→21:34)
[2023-07-06] MEDS: SACCHAROMYCES BOULARDII 250 MG CAPSULE PO (08:18)
[2023-07-06] MEDS: EMPAGLIFLOZIN 10 MG TABLET PO (08:18)
--- NOTE | 2023-07-06 08:24 | PCPTNOTE ---
Attempted PT evaluation, pt refused due to pain. RN present for refusal. Will follow.
[2023-07-06] MEDS: TOLNAFTATE 1% POWDER 45 GM BTL 1 APPLIC TOPICAL (08:25)
[2023-07-06 08:35] LABS: Glucose Point of Care 112 mg/dl (65-105)
--- NOTE | 2023-07-06 10:16 | PCOTNOTE ---
Attempted to see pt. for occupational therapy evaluation. Hospitalist Radha Magaña present, reporting to wait on pt. evaluation at this time due to presence of PE and potential DVT, off heparin until after procedure today to treat scrotal swelling and wound. OT/PT will attempt to see pt. when safe and medically appropriate to participate. Following.
--- NOTE | 2023-07-06 10:25 | PM.PNNEP ---
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 urinary retention evaluation to date: renal ultrasound pending urine electrolytes pre-renal urine eosinophils CPK normal moderate proteinuria holding irbesartan follow trend of repeat labs and UOP (2) Sepsis: Qualifiers: Sepsis acute organ dysfunction status: unspecified Sepsis type: sepsis due to unspecified organism Qualified Code(s): A41.9 - Sepsis, unspecified organism Code(s): A41.9 - Sepsis, unspecified organism Status: Acute Assessment and Plan: felt to be secondary to #3 positive blood cultures noted - Staph aureus follow repeat blood cultures on IV antibiotics stable hemodynamics at this time continue current therapy (3) Cellulitis of scrotum: Code(s): N49.2 - Inflammatory disorders of scrotum Status: Acute Assessment and Plan: as noted by admission exam CT scan and scrotal U/S results noted Urology following noted plan for I&D later today scrotal elevation continue supportive therapy (4) Bacteremia: Code(s): R78.81 - Bacteremia Status: Acute Assessment and Plan: see #2 (5) HTN (hypertension): Code(s): I10 - Essential (primary) hypertension Status: Chronic Assessment and Plan: stable hemodynamics noted follow closely given #2 (6) Diabetes: Qualifiers: Diabetes mellitus type: type 2 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 Subjective Date/time seen: 07/06/23 10:25 Interval history: Follow-up for acute kidney injury/acute renal failure. Events noted overnight with sudden onset of SOB and respiratory distress with chest pressure; D-dimer elevated so empirically started on heparin gtt and scheduled for V/Q scan and BLE dopplers today due to concerns for PE/DVT; seen by Urology earlier this AM with tentative plan for I & D/exploration of scrotum due to ongoing drainage and concerns for draining abscesses; still with moderate pain in scrotal area with movement. Exam Narrative: General: large WD/WN male in NAD Heart: normal S1 and S2; no rub Lungs: coarse breath sounds Abdomen: soft, nontender, nondistended, positive bowel sounds; +scrotal edema with posterior drainage Extremities: no cyanosis or clubbing; no edema Skin: no rash Objective Data Vital Signs Vital Signs: Vital Signs Temp Pulse Resp BP Pulse Ox O2 Del Method FiO2 07/06/23 08:00 Room Air 07/06/23 08:18 74 07/06/23 07:56 91 Room Air 21 07/06/23 05:24 67 07/06/23 04:00 67 07/06/23 04:51 97.8 F 74 20 108/59 L 91 07/06/23 01:53 88 97 Autopap 07/05/23 22:00 98.4 F 88 20 125/68 93 07/05/23 20:00 80 07/05/23 20:30 91 97 Autopap 07/05/23 20:34 80 07/05/23 16:00 81 07/05/23 13:36 97.7 F 77 20 128/56 L 94 Intake/Output Intake/Output: Intake & Output 07/03/23 07/04/23 07/05/23 07/06/23 23:59 23:59 23:59 23:59 Intake Total 1850 3540 3000 750 Output Total 1950 2300 2050 975 Balance -100 1240 950 -225 Meds/Results Medications: Active Medications Generic Name Dose Route Start Last Admi
--- NOTE | 2023-07-06 10:25 | P.PNNP_ITS ---
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 hypotension on admission * urinary retention * evaluation to date: * renal ultrasound pending * urine electrolytes pre-renal * urine eosinophils * CPK normal * moderate proteinuria * holding irbesartan * follow trend of repeat labs and UOP (2) Sepsis: Qualifiers: Sepsis acute organ dysfunction status: unspecified Sepsis type: sepsis due to unspecified organism Qualified Code(s): A41.9 - Sepsis, unspecified organism Code(s): A41.9 - Sepsis, unspecified organism Status: Acute Assessment and Plan: * felt to be secondary to #3 * positive blood cultures noted - Staph aureus * follow repeat blood cultures * on IV antibiotics * stable hemodynamics at this time * continue current therapy (3) Cellulitis of scrotum: Code(s): N49.2 - Inflammatory disorders of scrotum Status: Acute Assessment and Plan: * as noted by admission exam * CT scan and scrotal U/S results noted * Urology following * noted plan for I&D later today * scrotal elevation * continue supportive therapy (4) Bacteremia: Code(s): R78.81 - Bacteremia Status: Acute Assessment and Plan: * see #2 (5) HTN (hypertension): Code(s): I10 - Essential (primary) hypertension Status: Chronic Assessment and Plan: * stable hemodynamics noted * follow closely given #2 (6) Diabetes: Qualifiers: Diabetes mellitus type: type 2 Diabetes mellitus long-term insulin use: without long-term use Diabetes mellitus complication status: without complication Qualified Code(s): E11.9 - Type 2 diabetes mellitus without complications Code(s): E11.9 - Type 2 diabetes mellitus without complications Status: Acute Assessment and Plan: * follow accu-cheks * glycemic control per hospitalists Will continue to follow. Subjective Date/time seen: 07/06/23 10:25 Interval history: Follow-up for acute kidney injury/acute renal failure. Events noted overnight with sudden onset of SOB and respiratory distress with chest pressure; D-dimer elevated so empirically started on heparin gtt and scheduled for V/Q scan and BLE dopplers today due to concerns for PE/DVT; seen by Urology earlier this AM with tentative plan for I & D/exploration of scrotum due to ongoing drainage and concerns for draining abscesses; still with moderate pain in scrotal area with movement. Exam Narrative: General: large WD/WN male in NAD Heart: normal S1 and S2; no rub Lungs: coarse breath sounds Abdomen: soft, nontender, nondistended, positive bowel sounds; +scrotal edema with posterior drainage Extremities: no cyanosis or clubbing; no edema Skin: no rash Objective Data Vital Signs Vital Signs: Vital Signs Temp Pulse Resp BP Pulse Ox O2 Del Method FiO2 07/06/23 08:00 Room Air 07/06/23 08:18 74 07/06/23 07:56 91 Room Air 21
--- NOTE | 2023-07-06 10:43 | WPDHPUPDATE1 ---
History and Physical Update Update Date/Time: 07/06/23 10:43 History and Physical has been reviewed, including an updated exam of the patient. There are NO changes in the patient's condition. Risks, benefits, and alternatives have been discussed and questions answered. Patient agrees to proceed with procedure.
[2023-07-06 11:55] LABS: Partial Thromboplastin Time 33.7 SECONDS (22.3-36.8)
[2023-07-06 12:32] LABS: Glucose Point of Care 104 mg/dl (65-105)
[2023-07-06 12:40] LABS: Alveolar/Arterial O2 Gradient 27.6 mmHg; Base Excess ABG -8.5 mEq/l (+/-2.0); Fractional Inspired Oxygen 21 %; HCO3 ABG 18.7 mEq/l (22.0-26.0); Oxygen Content ABG 17.2 %vol (16.0-22.0); Oxygen Saturation ABG 90.3 % (95.0-100.0); Oxyhemoglobin 90.6 % THb (90.0-100.0); PCO2 ABG 45.1 mmHg (35.0-45.0); PO2 ABG 68.1 mmHg (80.0-100.0); PO2 FiO2 Ratio Arterial Blood 3.24 %; Total Hemoglobin 13.5 g/dL (12.0-18.0)
[2023-07-06 12:42] LABS: Device ROOM AIR; Modified Allen's Test Pass; Site Drawn LEFT RADIAL; pH ABG 7.236 (7.350-7.450)
--- NOTE | 2023-07-06 13:45 | P.PNIM_ITS ---
Progress Note: A&P Assessment and Plan (1) Cellulitis of scrotum: Code(s): N49.2 - Inflammatory disorders of scrotum Status: Acute (2) Diabetes: Qualifiers: Diabetes mellitus type: type 2 Diabetes mellitus shelter insulin use: without tank terminal gauger use Diabetes mellitus complication status: without complication Qualified Code(s): E11.9 - Type 2 diabetes mellitus without complications Code(s): E11.9 - Type 2 diabetes mellitus without complications Status: Acute (3) (HFpEF) heart failure with preserved ejection fraction: Code(s): I50.30 - Unspecified diastolic (congestive) heart failure Status: Acute Assessment and Plan: monitor daily intake and output (4) Obesity hypoventilation syndrome: Code(s): E66.2 - Morbid (severe) obesity with alveolar hypoventilation Status: Acute (5) Obstructive sleep apnea on CPAP: Code(s): G47.33 - Obstructive sleep apnea (adult) (pediatric); Z99.89 - Dependence on other enabling machines and devices Status: Acute (6) Bilateral knee pain: Code(s): M25.561 - Pain in right knee; M25.562 - Pain in left knee Status: Acute (7) Acute tubular necrosis: Code(s): N17.0 - Acute kidney failure with tubular necrosis Status: Acute (8) Urinary retention: Code(s): R33.9 - Retention of urine, unspecified Status: Acute (9) Sepsis: Qualifiers: Sepsis acute organ dysfunction status: unspecified Sepsis type: sepsis due to unspecified organism Qualified Code(s): A41.9 - Sepsis, unspecified organism Code(s): A41.9 - Sepsis, unspecified organism Status: Acute (10) Hydrocele, bilateral: Code(s): N43.3 - Hydrocele, unspecified Status: Acute (11) Hyponatremia: Code(s): E87.1 - Hypo-osmolality and hyponatremia Status: Acute (12) Bacteremia: Code(s): R78.81 - Bacteremia Status: Acute (13) Elevated d-dimer: Code(s): R79.89 - Other specified abnormal findings of blood chemistry Status: Acute (14) Acute respiratory failure with hypoxia and hypercarbia: Code(s): J96.01 - Acute respiratory failure with hypoxia; J96.02 - Acute respiratory failure with hypercapnia Status: Acute Plan Sepsis * empiric IV antibiotic therapy/Vanc, Rociphen, flaygl * Monitor lactic acid levels q6hr. 2.2 POA back to normal * Repeat CBC, CMP. * Two sets of blood cultures Staph aureus * urine cultures. * C-reactive proteins 23.8 * PTT and PT, INR. * TTE * glucose monitoring and control * 07/03: * WBC with no improvement * bacteremia possible contamination * 2nd set blood cultures pending * CRP F/U * ECHO no acute findings 07/04: * WBC 30 * Cr. 4.6 * cultures pending 07/05: * WBC finally trending down * Renal function also trending down 4.4 07/06: * WBC 29 will likely improve following I&D * Cr. 3.6 Acute respiratory failure with hypoxia and hypercapnia 07/06/2023 * SOB/chest pressure event called overnight * ABGs respiratory acidosis * DDIMER drawn >12.00 * V/Q was ordered per staff can not be done due to his size * unalbe to get CTA due to JOSE/ATN * high suspicion of PE * Will treat empirically with heparin GTT * Patient to transfer to IMU * Continuous BiPAP * Dopplers pending * F/U limited echo to look for RT heart strain Cellulitis * of the scrotum * Blood cultures gram+ cocci * Wound culture if open wound * Imaging US: bilateral hydroceles and scrot
--- NOTE | 2023-07-06 13:45 | PM.IMPN ---
Progress Note: A&P Assessment and Plan (1) Cellulitis of scrotum: Code(s): N49.2 - Inflammatory disorders of scrotum Status: Acute (2) Diabetes: Qualifiers: Diabetes mellitus type: type 2 Diabetes mellitus [facility] insulin use: without terminal operations supervisor use Diabetes mellitus complication status: without complication Qualified Code(s): E11.9 - Type 2 diabetes mellitus without complications Code(s): E11.9 - Type 2 diabetes mellitus without complications Status: Acute (3) (HFpEF) heart failure with preserved ejection fraction: Code(s): I50.30 - Unspecified diastolic (congestive) heart failure Status: Acute Assessment and Plan: monitor daily intake and output (4) Obesity hypoventilation syndrome: Code(s): E66.2 - Morbid (severe) obesity with alveolar hypoventilation Status: Acute (5) Obstructive sleep apnea on CPAP: Code(s): G47.33 - Obstructive sleep apnea (adult) (pediatric); Z99.89 - Dependence on other enabling machines and devices Status: Acute (6) Bilateral knee pain: Code(s): M25.561 - Pain in right knee; M25.562 - Pain in left knee Status: Acute (7) Acute tubular necrosis: Code(s): N17.0 - Acute kidney failure with tubular necrosis Status: Acute (8) Urinary retention: Code(s): R33.9 - Retention of urine, unspecified Status: Acute (9) Sepsis: Qualifiers: Sepsis acute organ dysfunction status: unspecified Sepsis type: sepsis due to unspecified organism Qualified Code(s): A41.9 - Sepsis, unspecified organism Code(s): A41.9 - Sepsis, unspecified organism Status: Acute (10) Hydrocele, bilateral: Code(s): N43.3 - Hydrocele, unspecified Status: Acute (11) Hyponatremia: Code(s): E87.1 - Hypo-osmolality and hyponatremia Status: Acute (12) Bacteremia: Code(s): R78.81 - Bacteremia Status: Acute (13) Elevated d-dimer: Code(s): R79.89 - Other specified abnormal findings of blood chemistry Status: Acute (14) Acute respiratory failure with hypoxia and hypercarbia: Code(s): J96.01 - Acute respiratory failure with hypoxia; J96.02 - Acute respiratory failure with hypercapnia Status: Acute Plan Sepsis empiric IV antibiotic therapy/Vanc, Rociphen, flaygl Monitor lactic acid levels q6hr. 2.2 POA back to normal Repeat CBC, CMP. Two sets of blood cultures Staph aureus urine cultures. C-reactive proteins 23.8 PTT and PT, INR. TTE glucose monitoring and control 07/03: WBC with no improvement bacteremia possible contamination 2nd set blood cultures pending CRP F/U ECHO no acute findings 07/04: WBC 30 Cr. 4.6 cultures pending 07/05: WBC finally trending down Renal function also trending down 4.4 07/06: WBC 29 will likely improve following I&D Cr. 3.6 Acute respiratory failure with hypoxia and hypercapnia 07/06/2023 SOB/chest pressure event called overnight ABGs respiratory acidosis DDIMER drawn >12.00 V/Q was ordered per staff can not be done due to his size unalbe to get CTA due to JOSE/ATN high suspicion of PE Will treat empirically with heparin GTT Patient to transfer to IMU Continuous BiPAP Dopplers pending F/U limited echo to look for RT heart strain Cellulitis of the scrotum Blood cultures gram+ cocci Wound culture if open wound Imaging US: bilateral hydroceles and scrotal skin thickening Antibiotic regimen targeting patient's risk factors, adjust based on culture and sensitivity currently vancomycin and Rocephin and p.o. Flagyl Monitor IV hydration. scrotal hammock Urology consulted and following monitor urinary output may need straight cath if unable to void due to swelling Monitor vital signs and oxygen saturation. Recommended duration of antibiotic therapy for 7-10 days. 07/03: WBC with no improvement bacteremia 2nd set blood cultures pending
[2023-07-06 14:35] LABS: Glucose Point of Care 102 mg/dl (65-105)
--- NOTE | 2023-07-06 14:48 | WPDANESEPPF ---
Anes - Initial Pre Proc Eval Procedure: Operation Date: 07/06/23 16:00 Proposed Procedures p Incision Drainage and Washout Scrotal Abscess - Ildefonso Jackson MD Date/Time: 07/06/23 14:48 Surgeon: Oliver Black MD Pre Op Diagnosis: Sepsis, Cellulitis of Scrotum, Lactic Acidosis Patient Data Age: 47 Gender: M Height: 1.75 m Weight: 177.3 kg Last Vital Signs Temp 36.8 C 07/06/23 14:38 Pulse 64 07/06/23 14:38 Resp 20 07/06/23 14:38 BP 111/51 L 07/06/23 14:38 Pulse Ox 93 07/06/23 14:38 O2 Del Method Room Air 07/06/23 08:00 O2 Flow Rate 2 06/30/23 19:20 FiO2 21 07/06/23 07:56 Allergies Allergy/AdvReac Type Severity Reaction Status Date / Time No Known Drug Allergies Allergy Unknown Unknown Verified 07/01/23 01:29 Home Medications Medication Instructions Recorded Confirmed Type metformin 500 mg tablet 1,000 mg PO BIDWM 02/11/21 07/01/23 History metoprolol tartrate 50 mg tablet 100 mg PO BIDWM 02/11/21 07/01/23 History glimepiride 1 mg tablet (Amaryl) 1 mg PO DAILY 10/31/21 07/01/23 History irbesartan 150 mg tablet 150 mg PO DAILY 10/31/21 07/01/23 History levothyroxine 25 mcg tablet 75 mcg PO DAILY 10/31/21 07/01/23 History rosuvastatin 20 mg tablet 20 mg PO DAILY 10/31/21 07/01/23 History furosemide 40 mg tablet 40 mg PO DAILY #30 tabs 11/04/21 07/01/23 Rx empagliflozin 10 mg tablet 10 mg PO DAILY 07/01/23 07/01/23 History (Jardiance) Laboratory Tests 07/05/23 07/05/23 07/05/23 19:46 19:53 19:54 WBC 28.9 H K/mm3 (4.5-10.0) RBC 4.46 L M/mm3 (4.6-6.20) Hgb 12.3 L g/dL (14.0-18.0) Hct 39.6 L % (42.0-52.0) MCV 88.8 fl (80-100) MCH 27.6 pg (26-34) MCHC 31.1 L g/dl (32-36) RDW 16.2 H % (11.5-14.5) Plt Count 397 H k/mm3 (150-375) MPV 9.7 fl (7.4-10.4) Immature Gran % (Auto) Not Reportable Neut % (Auto) Not Reportable Lymph % (Auto) Not Reportable Oliver % (Auto) Not Reportable Eos % (Auto) Not Reportable Baso % (Auto) Not Reportable Lymph # (Auto) Not Reportable Oliver # (Auto) Not Reportable Eos # (Auto) Not Reportable Baso # (Auto) Not Reportable Abs Immat Gran (auto) Not Reportable Absolute Neuts (auto) Not Reportable Absolute Nucleated RBC Not Reportable Total Counted 100 Neutrophils % (Manual) 75 H % (46-73) Band Neutrophils % 5 % (0-6) Lymphocytes % (Manual) 7 L % (18-44) Monocytes % (Manual) 10 H % (3-9) Eosinophils % (Manual) 1 % (0-4) Metamyelocytes % 2 % Nucleated RBC % Not Reportable Abs Neuts (Manual) 23.12 H K/mm3 (1.3-6.7) Abs Lymphs (Manual) 2.02 K/mm3 (1.1-4.5) Abs Monocytes (Manual) 2.89 H K/mm3 (0.1-0.90) Absolute Eos (Manual) 0.28 K/mm3 (0.02-0.5) Platelet Estimate Increased (Adequate) Clumped Platelets Anisocytosis Shakila Cells Schistocytes None seen (NORMAL) PT 15.8 H Seconds (11.1-14.7) INR 1.2 APTT 35.4 SECONDS (22.3-36.8) D-Dimer 12.51 H ug/mL (<0.48) Puncture Site ABG pH ABG pCO2 ABG pO2 ABG PO2/FiO2 Ratio ABG HCO3 ABG O2 Saturation ABG O2 Content ABG Base Excess A-a Gradient Oxyhemoglobin Total Hemoglobin O2 Delivery Device O2 Liters/Min FiO2 Sodium 135 L mmol/L (137-145) Potassium 3.7 mmol/L (3.4-5.0) Chloride 107 mmol/L (98-107) Carbon Dioxide 18 L mmol/L (22-30) Anion Gap 10 mmol/L
[2023-07-06] MEDS: LACTATED RINGERS 1,000 ML 30 ML IV CONT (15:42)
[2023-07-06] MEDS: fentaNYL CITRATE INJ (*CRX) 100 MCG/2 ML VIAL 25 MCG IV PUSH ×4 (15:42→15:51)
[2023-07-06] MEDS: HYDROmorphone HCL INJ (*CRX) 1 MG/ML SYR 0.25 MG IV PUSH ×5 (16:05→16:32)
--- NOTE | 2023-07-06 16:10 | PC.NURSE ---
Faxed SBAR and gave report to IMU receiving nurse @ [phone].
--- NOTE | 2023-07-06 16:17 | W.PM.PROC2 ---
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 He has draining abscesses. He is morbidly obese and difficult to examine. He presents for anesthesia for scrotal exploration and likely debridement or incision and drainage of an abscess. He understands risks of bleeding, infection, damage surrounding organs. He agrees to proceed. Findings Scrotum widely opened. Necrotic tissue present. Abscess drained. Packing applied. Necrotic tissue debrided Description of Procedure He has correctly identified. Informed consent obtained. From the operating room. He was given general anesthesia. He was placed in a frog-leg position. Scrotum was prepped and draped sterile fashion. Time-out performed. He had had a large edematous scrotum. There were draining abscesses throughout the midline of the scrotum. There is an open area at the inferior part of the scrotum with definite necrotic tissue. I explored this area with my gloved finger. It tracked up towards the superior scrotum near the penoscrotal junction. I was able to open the superior end of the scrotum forming a communication between the 2 open areas. I then opened the scrotum widely to connect these 2 areas to fully debride the scrotum. There is necrotic tissue which was excised. Hemostasis was continually obtained. His left testicle was identified. It was underneath dartos fascia and not exposed. I continued to debride necrotic tissue. Once I was happy with the debridement. I packed the wound with a moistened Kerlix. Because the wound was opened it was hard to keep the Kerlix in place. I did interrupted retention sutures with a silk suture in order to keep the dressing in place. This loosely closed the scrotum over top of the Kerlix. There was good hemostasis. There was debridement of necrotic tissue. There was no further abscess as abscess fluid was drained. The plan will be to take him back to the operating room in a couple days for further debridement and likely wound VAC placed Urine Output 100 Packing Yes Pathology None sent Complications No immediate complications Condition Stable Disposition PACU
[2023-07-06 16:19] LABS: Glucose Point of Care 98 mg/dl (65-105)
--- NOTE | 2023-07-06 17:25 | PC.NURSE ---
Pt arrived from PACU via bed. Med/Surg transfer to IMU post-operatively for continuous BiPAP
--- NOTE | 2023-07-06 17:52 | PCRCNOTE ---
RT notified Dr. Jones of BIPAP order. Dr. Jones stated to placed patient on CPAP settings due to Sleep apnea. RT placed patient on autopap according to order. RN aware.
[2023-07-06] MEDS: MORPHINE SULFATE PCA (*CRX) 30 MG/30 ML SYR IV CONT (18:09)
[2023-07-06 21:59] LABS: Partial Thromboplastin Time 32.4 SECONDS (22.3-36.8)
[2023-07-07] VITALS (18 sets, daily range): BP systolic 113–146; BP diastolic 51–66; PULSE 56–90; RESP 18–24; TEMP 36.3–36.4; O2SAT 92–98
--- NOTE | 2023-07-07 | ECHO_ITS ---
Patient Info Name: Riaz Morgan Age: 47 years : 1975 Gender: Male Ht: 69 in Wt: 338 lbs BSA: 2.82 m2 HR: 65 bpm BP: 128 / 57 mmHg Heart Rhythm: Sinus Rhythm Technical Quality: Poor Exam Date: 07/07/2023 9:57 AM Exam Location: Echo Lab Patient Status: Inpatient Admit Date: 07/01/2023 Staff Ordering Physician: Radha Magaña APRN Datacap Developer: Marli Rosario RDCS Attending Provider: Oliver Black MD Referring Physician: Gómez PEREZ; Exam Type: CA echo dop color flow w con Study Info Indications - check for right heart strain Complete two-dimensional, color flow and Doppler transthoracic echocardiogram is performed with contrast to opacify the left ventricle and to improve the deliniation of the left ventricle endocardial borders. Reason for Poor Study: poor echocardiographic windows Summary 1. Technically suboptimal study due to poor sonographic images. 2. Definity contrast administered improved wall motion interpretation. 3. Left ventricular chamber dimension is moderately enlarged. 4. Left ventricular systolic function is normal, estimated at 60-65%. 5. There is mild concentric increased left ventricular wall thickness. 6. The left ventricular diastolic function is abnormal. 7. E/e' 11 is mildly elevated. 8. Left atrial chamber dimension is moderately enlarged. 9. No pulmonary hypertension, estimated pulmonary arterial systolic pressure is 14 mmHg. Left Ventricle E/e' 11 is mildly elevated. Technically suboptimal study due to poor sonographic images. Definity contrast administered improved wall motion interpretation. Left ventricular chamber dimension is moderately enlarged. Left ventricular systolic function is normal, estimated at 60-65%. There is mild concentric increased left ventricular wall thickness. The left ventricular diastolic function is abnormal. Right Ventricle Right ventricular systolic function is normal and with normal TAPSE 2.8 cm. Right ventricular chamber dimension is normal. Left Atria Left atrial chamber dimension is moderately enlarged. Right Atria Right atrial chamber dimension is normal. Aortic Valve The aortic valve is not well visualized. Cannot determine number of aortic valve leaflets. There is no aortic valve stenosis. There is no aortic valve regurgitation. Pulmonic Valve There is no pulmonic regurgitation. Mitral Valve There is no mitral valve stenosis. There is no mitral valve regurgitation. Tricuspid Valve There is no tricuspid valve regurgitation. No pulmonary hypertension, estimated pulmonary arterial systolic pressure is 14 mmHg. Pericardium/Pleural There is no pericardial effusion. Aorta The aortic root size at the sinus of Valsalva is normal. Left Ventricular Outflow Tract Name Value Normal LVOT 2D LVOT Diameter 2.12 cm LVOT Doppler LVOT Peak Gradient 3 mmHg LVOT Mean Gradient 2 mmHg LVOT VTI 20.28 cm LVOT VTI/AV VTI Ratio 0.80 LVOT Stroke Volume 71.48 ml LVOT CO 4.46 l/min LVOT CI 1.58 L/min/m2
[2023-07-07] MEDS: OXACILLIN SODIUM 2 GM in SODIUM CHLORIDE 0.9% IV 100 ML IVPB ×6 (02:05→21:45)
[2023-07-07] MEDS: HEPARIN SOD/D5W 100 UNITS/ML 25,000 UNITS/250 ML BAG 17 UNITS IV CONT (03:23)
[2023-07-07] MEDS: LEVOTHYROXINE SODIUM 75 MCG TABLET PO (03:25)
[2023-07-07] MEDS: HYDROmorphone HCL INJ (*CRX) 1 MG/ML SYR IV PUSH (03:25)
[2023-07-07] MEDS: MORPHINE SULFATE PCA (*CRX) 30 MG/30 ML SYR IV CONT ×2 (03:42→21:35)
[2023-07-07 04:50] LABS: Hematocrit 39.5 % (42.0-52.0); Hemoglobin 12.1 g/dL (14.0-18.0); Mean Corpuscular HGB Conc 30.6 g/dl (32-36); Mean Corpuscular Volume 91.4 fl (80-100); Mean Platelet Volume 9.5 fl (7.4-10.4); Platelet Count Result 407 k/mm3 (150-375); Red Blood Count 4.32 M/mm3 (4.6-6.20); Red Cell Distribution Width 16.7 % (11.5-14.5); White Blood Count 29.7 K/mm3 (4.5-10.0)
[2023-07-07 05:07] LABS: Alanine Aminotransferase 18 U/L (6-50); Albumin Level 2.7 g/dL (3.5-5.1); Alkaline Phosphatase 179 U/L (38-126); Anion Gap 12 mmol/L (8-16); Aspartate Amino Transferase 29 U/L (17-59); Bilirubin,Total 0.3 mg/dL (0.2-1.3); Blood Urea Nitrogen 48 mg/dL (9-20); Calcium 8.1 mg/dL (8.4-10.2); Carbon Dioxide 16 mmol/L (22-30); Chloride 112 mmol/L (98-107); Estimated CRCL calculation 36 ml/min; Estimated Glomerular Filt Rate 17; Glucose 103 mg/dL (65-110); Potassium 3.9 mmol/L (3.4-5.0); Sodium 140 mmol/L (137-145)
[2023-07-07 05:37] LABS: Alveolar/Arterial O2 Gradient 101.4 mmHg; Base Excess ABG -7.9 mEq/l (+/-2.0); Fractional Inspired Oxygen 36 %; HCO3 ABG 19.8 mEq/l (22.0-26.0); Oxygen Content ABG 17.5 %vol (16.0-22.0); Oxygen Saturation ABG 96.1 % (95.0-100.0); Oxyhemoglobin 95.9 % THb (90.0-100.0); PCO2 ABG 49.3 mmHg (35.0-45.0); PO2 ABG 98.1 mmHg (80.0-100.0); PO2 FiO2 Ratio Arterial Blood 2.72 %; Total Hemoglobin 12.9 g/dL (12.0-18.0)
[2023-07-07 05:38] LABS: pH ABG 7.222 (7.350-7.450)
[2023-07-07 05:39] LABS: Device NASAL CANNULA; Modified Allen's Test Pass; Site Drawn RIGHT RADIAL
--- NOTE | 2023-07-07 06:18 | P.PNCROSS_ITS ---
Event Note Event Note Event Note: Nursing staff notified me the patient's pH on his ABG was 7.22. On review of p atient's labs patient does have mildly elevated pCO2 but this appears to be chronic for the patient. Patient's acidosis is most consistent with metabolic acidosis from his acute renal failure. The patient is already on oral bicarb administration and has been on such for several days. 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 This is also worsened by the patient's continued metformin administration in the setting of acute kidney injury. Patient's serum bicarb appears to be relatively stable could compared to other values for this visit but overall low as the patient is a chronic CO2 retainer in usually has serum bicarb so that her high. The patient may benefit from additional bicarb administration but will defer this decision to Nephrology that is been following with the patient. 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 Patient has been having stable serum glucoses. Patient is on Amaryl which will be continued. Will add Accu-Cheks a.c. HS and moderate sliding scale insulin as needed.
--- NOTE | 2023-07-07 06:21 | WPDUROPN2 ---
Progress Note: A&P Assessment and Plan (1) Cellulitis of scrotum: Code(s): N49.2 - Inflammatory disorders of scrotum Status: Acute (2) Scrotal abscess: Code(s): N49.2 - Inflammatory disorders of scrotum Status: Acute Plan Repeat scrotal debridement tomorrow Placement wound vac tomorrow Subjective Subjective Date/Time Seen: 07/07/23 06:21 Interval history: No acute events overnight. Minimal change in leukocytosis this morning. Review of Systems Respiratory: Respiratory: Denies dyspnea Exam Const: General: no acute distress Nutritional Appearance: obese Resp: Effort & Inspection: normal respiratory effort GI: Inspection: non-distended GI Palp: No abdominal tenderness and No Guarding due to palpation present (GI) Auscultation: normal bowel sounds : Other: Scrotum dressed / serous drainage Objective Data Vital Signs Vital Signs: Vital Signs - 24 hr 07/06/23 07:56 07/06/23 08:18 07/06/23 08:00 Temperature Pulse Rate 74 Respiratory Rate Blood Pressure Pulse Oximetry 91 Oxygen Delivery Room Air Room Air Oxygen Flow Rate Fraction of Inspired Oxygen 07/06/23 14:38 07/06/23 08:00 07/06/23 12:00 Temperature 98.3 F Pulse Rate 64 72 67 Respiratory Rate 20 Blood Pressure 111/51 L Pulse Oximetry 93 Oxygen Delivery Oxygen Flow Rate Fraction of Inspired Oxygen 07/06/23 15:42 07/06/23 15:57 07/06/23 16:15 Temperature 97.0 F L Pulse Rate 76 88 79 Respiratory Rate 16 24 H 18 Blood Pressure 103/48 L 112/78 120/50 L Pulse Oximetry 96 96 95 Oxygen Delivery Simple Face Mask Nasal Cannula Nasal Cannula Oxygen Flow Rate 8 6 6 Fraction of Inspired Oxygen 07/06/23 16:30 07/06/23 16:45 07/06/23 17:00 Temperature Pulse Rate 80 76 77 Respiratory Rate 16 14 14 Blood Pressure 135/58 L 134/66 133/56 L Pulse Oximetry 95 95 96 Oxygen Delivery Nasal Cannula Nasal Cannula Nasal Cannula Oxygen Flow Rate 4 2 2 Fraction of Inspired Oxygen 07/06/23 17:26 07/06/23 17:38 07/06/23 17:41 Temperature 97.5 F L 96.2 F L Pulse Rate 74 73 Respiratory Rate 20 20 Blood Pressure 127/53 L 129/55 L Pulse Oximetry 89 L 91 91 Oxygen Delivery CPAP Oxygen Flow Rate 3 Fraction of Inspired Oxygen 07/06/23 17:47 07/06/23 18:09 07/06/23 18:26 Temperature 97.5 F L Pulse Rate 84 Respiratory Rate 20 16 Blood Pressure Pulse Oximetry 93 91 95 Oxygen Delivery Autopap Oxygen Flow Rate Fraction of Inspired Oxygen 07/06/23 17:56 07/06/23 18:11 07/06/23 19:03 Temperature 97.4 F L 97.7 F 96.1 F L Pulse Rate 76 88 71 Respiratory Rate 18 18 18 Blood Pressure 133/48 L 114/61 119/55 L Pulse Oximetry 95 93 94 Oxygen Delivery Oxygen Flow Rate Fraction of Inspired Oxygen 07/06/23 19:28 07/06/23 20:00 07/06/23 21:00 Temperature 97.6 F 97.6 F Pulse Rate 69 81 Respiratory Rate 22 H 22 H Blood Pressure 116/46 L 120/48 L Pulse Oximetry 94 95 95 Oxygen Delivery Autopap Oxygen Flow Rate Fraction of Inspired Oxygen 07/06/23 21:34 07/06/23 20:00 07/06/23 20:00 Temperature Pulse Rate 83 70 Respiratory Rate Blood Pressure Pulse Oximetry 96 Oxygen Delivery Nasal Cannula Oxygen Flow Rate 4 Fraction of Inspired Oxygen 07/06/23 23:40 07/06/23 23:52 07/07/23 00:00 Temperature 97.5 F L Pulse Rate 57 L Respiratory Rate 22 H Blood Pressure 108/55 L Pulse Oximetry 92 98 96 Oxygen Delivery Autopap Nasal Cannula Oxygen Flow Rate 4 Fraction of Inspired Oxygen 07/07/23 03:42 07/07/23 04:34 07/07/23 00:00 Temperature 97.5 F L Pulse Rate 65 56 L Respiratory Rate 20 22 H Blood Pressure 128/57 L Pulse Oximetry 94 95 Oxygen Delivery Oxygen Flow Rate Fraction of Inspired Oxygen 07/07/23 04:00 07/07/23 04:00 Temperature Pulse Rate 62 Respiratory Rate Blood Pressure Pulse Oximetry 96 Oxygen Delivery Nasal Cannula
--- NOTE | 2023-07-07 07:13 | WPDANESPN ---
Anes - Prog Note Post-Op Date/Time: 07/07/23 07:13 Cardiovascular status: normal Respiratory status: normal Airway patency: baseline Mental status: baseline Post-Op hydration status: normal Vital Signs: Last Vital Signs Temp 97.5 F L 07/07/23 04:34 Pulse 65 07/07/23 04:34 Resp 22 H 07/07/23 04:34 BP 128/57 L 07/07/23 04:34 Pulse Ox 95 07/07/23 04:34 O2 Del Method Nasal Cannula 07/07/23 04:00 O2 Flow Rate 4 07/07/23 04:00 FiO2 21 07/06/23 07:56 Pain Score (VAS): Sleeping with CPAP I/O: Intake & Output 07/06/23 07/06/23 07/07/23 15:59 23:59 07:59 Intake Total 450 600 580 Output Total 700 470 900 Balance -250 130 -320 Laboratory Tests 07/07/23 04:31 07/07/23 04:31 07/06/23 07/06/23 07/06/23 08:24 11:32 12:26 WBC RBC Hgb Hct MCV MCH MCHC RDW Plt Count MPV APTT 33.7 Puncture Site ABG pH ABG pCO2 ABG pO2 ABG PO2/FiO2 Ratio ABG HCO3 ABG O2 Saturation ABG O2 Content ABG Base Excess A-a Gradient Oxyhemoglobin Total Hemoglobin O2 Delivery Device O2 Liters/Min FiO2 Sodium Potassium Chloride Carbon Dioxide Anion Gap BUN Creatinine Estim Creat Clear Calc Estimated GFR Glucose POC Capillary Glucose 112 H 104 Calcium Total Bilirubin AST ALT Alkaline Phosphatase Total Protein Albumin 07/06/23 07/06/23 07/06/23 12:35 14:31 16:16 WBC RBC Hgb Hct MCV MCH MCHC RDW Plt Count MPV APTT Puncture Site Left radial ABG pH 7.236 L* ABG pCO2 45.1 H ABG pO2 68.1 L ABG PO2/FiO2 Ratio 3.24 ABG HCO3 18.7 L ABG O2 Saturation 90.3 L ABG O2 Content 17.2 ABG Base Excess -8.5 A-a Gradient 27.6 Oxyhemoglobin 90.6 Total Hemoglobin 13.5 O2 Delivery Device Room air O2 Liters/Min Not Reportable FiO2 21 Sodium Potassium Chloride Carbon Dioxide Anion Gap BUN Creatinine Estim Creat Clear Calc Estimated GFR Glucose POC Capillary Glucose 102 98 Calcium Total Bilirubin AST ALT Alkaline Phosphatase Total Protein Albumin 07/06/23 07/07/23 07/07/23 21:34 04:31 05:27 WBC 29.7 H RBC 4.32 L Hgb 12.1 L Hct 39.5 L MCV 91.4 MCH 28.0 MCHC 30.6 L RDW 16.7 H Plt Count 407 H MPV 9.5 APTT 32.4 Puncture Site Right radial ABG pH 7.222 L* ABG pCO2 49.3 H ABG pO2 98.1 ABG PO2/FiO2 Ratio 2.72 ABG HCO3 19.8 L ABG O2 Saturation 96.1 ABG O2 Content 17.5 ABG Base Excess -7.9 A-a Gradient 101.4 Oxyhemoglobin 95.9 Total Hemoglobin 12.9 O2 Delivery Device Nasal cannula O2 Liters/Min 4.0 FiO2 36 Sodium 140 Potassium 3.9 Chloride 112 H Carbon Dioxide 16 L Anion Gap 12 BUN 48 H Creatinine 3.80 H Estim Creat Clear Calc 36 Estimated GFR 17 L Glucose 103 POC Capillary Glucose Calcium 8.1 L Total Bilirubin 0.3 AST 29 ALT 18 Alkaline Phosphatase 179 H Total Protein 7.0 Albumin 2.7 L Microbiology 06/30/23 18:50 Blood Blood Culture - Final Staphylococcus aureus 06/30/23 18:50 Blood Blood Culture - Final Staphylococcus aureus 07/04/23 10:41 Testical Left Wound Culture - Preliminary Post-procedural complaints: none Patient Feedback: Patient satisfied with anesthetic care.
[2023-07-07 08:19] LABS: Glucose Point of Care 79 mg/dl (65-105)
--- NOTE | 2023-07-07 09:26 | PC.NURSE ---
Spoke with night JANNET Spaulding regarding 0500 dose of Oxacillin. RN stated I did give the medication. I must have forgotten to scan it. EMAR updated by this RN
--- NOTE | 2023-07-07 09:27 | PCPTNOTE ---
Pt not currently medically appropriate for safe participation in skilled therapy. Please re-order when appropriate.
[2023-07-07] MEDS: SACCHAROMYCES BOULARDII 250 MG CAPSULE PO ×3 (09:35→16:16)
[2023-07-07] MEDS: METOPROLOL TARTRATE 50 MG TAB 100 MG PO ×2 (09:35→20:41)
[2023-07-07] MEDS: SODIUM BICARBONATE TAB 650 MG TABLET PO ×2 (09:36→12:09)
[2023-07-07] MEDS: ROSUVASTATIN 10 MG TABLET 20 MG PO (09:43)
[2023-07-07] MEDS: PERFLUTREN LIPID MICROSPHERES 1.5 ML VIAL DILUTED TO 10 ML TOTAL VOLUME IV PUSH (10:10)
--- NOTE | 2023-07-07 11:20 | PM.PNNEP ---
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 on admission urinary retention evaluation to date: renal ultrasound pending urine electrolytes pre-renal urine eosinophils CPK normal moderate proteinuria holding irbesartan follow trend of repeat labs and UOP (2) Sepsis: Qualifiers: Sepsis acute organ dysfunction status: unspecified Sepsis type: sepsis due to unspecified organism Qualified Code(s): A41.9 - Sepsis, unspecified organism Code(s): A41.9 - Sepsis, unspecified organism Status: Acute Assessment and Plan: felt to be secondary to #3 positive blood cultures noted - Staph aureus follow repeat blood cultures (negative to date) on IV antibiotics stable hemodynamics at this time continue current therapy (3) Cellulitis of scrotum: Code(s): N49.2 - Inflammatory disorders of scrotum Status: Acute Assessment and Plan: as noted by admission exam CT scan and scrotal U/S results noted Urology following s/p scrotal exploration, incision and drainage/debridement and wound packing (on 07/06) plan further debridement/wound vac tomorrow scrotal elevation/dressing changes on antibiotics continue supportive therapy (4) Bacteremia: Code(s): R78.81 - Bacteremia Status: Acute Assessment and Plan: see #2 (5) HTN (hypertension): Code(s): I10 - Essential (primary) hypertension Status: Chronic Assessment and Plan: stable hemodynamics noted follow closely given #2 (6) Diabetes: Qualifiers: Diabetes mellitus type: type 2 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 Subjective Date/time seen: 07/07/23 11:20 Interval history: Follow-up for acute kidney injury/acute renal failure. Events noted overnight with regard to worsening acidosis; s/p ccrotal exploration, I & D/debridement and wound packing by Urology yesterday -- tolerated these procedures reasonably well; major complaint is that of pain/soreness in scrotal area given recent interventions; renal function continues to slowly improve. Exam Narrative: General: large WD/WN male in NAD Heart: normal S1 and S2; no rub Lungs: coarse breath sounds Abdomen: soft, nontender, nondistended, positive bowel sounds; scrotal dressings in place Extremities: no cyanosis or clubbing; no edema Skin: no nodules Objective Data Vital Signs Vital Signs: Vital Signs Temp Pulse Resp BP Pulse Ox O2 Del Method O2 Flow Rate 07/07/23 09:46 20 94 07/07/23 09:35 72 07/07/23 08:12 93 Room Air 07/07/23 07:45 97.6 F 71 24 H 141/64 H 96 07/07/23 04:00 96 Nasal Cannula 4 07/07/23 04:00 62 07/07/23 00:00 56 L 07/07/23 04:34 97.5 F L 65 22 H 128/57 L 95 07/07/23 03:42 20 94 07/07/23 00:00 96 Nasal Cannula 4 07/06/23 23:52 97.5 F L 57 L 22 H 108/55 L 98 07/06/23 23:40 92 Autopap 07/06/23 20:00 70 07/06/23 20:00 96 Nasal Cannula 4 07/06/23 21:34 83 07/06/23 21:00 97.6 F 81 22 H 120/48 L 95 07/06/23 20:00 97.6 F 69 22 H 116/46 L 95 07/06/23 19:28 94 Autopap 07/06/23 19:03 96.1 F L
--- NOTE | 2023-07-07 11:20 | P.PNNP_ITS ---
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 * relative hypotension on admission * urinary retention * evaluation to date: * renal ultrasound pending * urine electrolytes pre-renal * urine eosinophils * CPK normal * moderate proteinuria * holding irbesartan * follow trend of repeat labs and UOP (2) Sepsis: Qualifiers: Sepsis acute organ dysfunction status: unspecified Sepsis type: sepsis due to unspecified organism Qualified Code(s): A41.9 - Sepsis, unspecified organism Code(s): A41.9 - Sepsis, unspecified organism Status: Acute Assessment and Plan: * felt to be secondary to #3 * positive blood cultures noted - Staph aureus * follow repeat blood cultures (negative to date) * on IV antibiotics * stable hemodynamics at this time * continue current therapy (3) Cellulitis of scrotum: Code(s): N49.2 - Inflammatory disorders of scrotum Status: Acute Assessment and Plan: * as noted by admission exam * CT scan and scrotal U/S results noted * Urology following * s/p scrotal exploration, incision and drainage/debridement and wound packing (on 07/06) * plan further debridement/wound vac tomorrow * scrotal elevation/dressing changes * on antibiotics * continue supportive therapy (4) Bacteremia: Code(s): R78.81 - Bacteremia Status: Acute Assessment and Plan: * see #2 (5) HTN (hypertension): Code(s): I10 - Essential (primary) hypertension Status: Chronic Assessment and Plan: * stable hemodynamics noted * follow closely given #2 (6) Diabetes: Qualifiers: Diabetes mellitus type: type 2 Diabetes mellitus shelter insulin use: without technician terminal and repeater use Diabetes mellitus complication status: without complication Qualified Code(s): E11.9 - Type 2 diabetes mellitus without complications Code(s): E11.9 - Type 2 diabetes mellitus without complications Status: Acute Assessment and Plan: * follow accu-cheks * glycemic control per hospitalists Will continue to follow. Subjective Date/time seen: 07/07/23 11:20 Interval history: Follow-up for acute kidney injury/acute renal failure. Events noted overnight with regard to worsening acidosis; s/p ccrotal exploration, I & D/debridement and wound packing by Urology yesterday -- tolerated these procedures reasonably well; major complaint is that of pain /soreness in scrotal area given recent interventions; renal function continues to slowly improve. Exam Narrative: General: large WD/WN male in NAD Heart: normal S1 and S2; no rub Lungs: coarse breath sounds Abdomen: soft, nontender, nondistended, positive bowel sounds; scrotal dressings in place Extremities: no cyanosis or clubbing; no edema Skin: no nodules Objective Data Vital Signs Vital Signs: Vital Signs Temp Pulse Resp BP Pulse Ox O2 Del Method O2 Flow Rate 07/07/23 09:46 20 94 07/07/23 09:35 72
[2023-07-07 11:51] LABS: Partial Thromboplastin Time 45.3 SECONDS (22.3-36.8)
--- NOTE | 2023-07-07 11:58 | IVDEFINITY ---
Prior to administration of IV Definity the patient was educated on the risks and benefits of the imaging enhancing agent including potential adverse side effects. The patient verbalized understanding. Allergies were verified. No exclusion criteria were identified and at least one of the following inclusion criteria were met: 1) physician request, 2) patient technically difficult to image (per the [employer]ocardi[employer] guidelines of two or more segments not discernable within the apical view), or 3) questionable left ventricular function. ?
[2023-07-07 12:08] LABS: Glucose Point of Care 86 mg/dl (65-105)
[2023-07-07] MEDS: HEPARIN SODIUM 5,000 UNITS/ML VIAL 9000 UNITS IV PUSH (12:16)
--- NOTE | 2023-07-07 13:59 | PM.IMPN ---
Progress Note: A&P Assessment and Plan (1) Cellulitis of scrotum: Code(s): N49.2 - Inflammatory disorders of scrotum Status: Acute (2) Diabetes: Qualifiers: Diabetes mellitus type: type 2 Diabetes mellitus penitentiary insulin use: without summer counselor use Diabetes mellitus complication status: without complication Qualified Code(s): E11.9 - Type 2 diabetes mellitus without complications Code(s): E11.9 - Type 2 diabetes mellitus without complications Status: Acute (3) (HFpEF) heart failure with preserved ejection fraction: Code(s): I50.30 - Unspecified diastolic (congestive) heart failure Status: Acute (4) Obesity hypoventilation syndrome: Code(s): E66.2 - Morbid (severe) obesity with alveolar hypoventilation Status: Acute (5) Obstructive sleep apnea on CPAP: Code(s): G47.33 - Obstructive sleep apnea (adult) (pediatric); Z99.89 - Dependence on other enabling machines and devices Status: Acute (6) Bilateral knee pain: Code(s): M25.561 - Pain in right knee; M25.562 - Pain in left knee Status: Acute (7) Acute tubular necrosis: Code(s): N17.0 - Acute kidney failure with tubular necrosis Status: Acute (8) Urinary retention: Code(s): R33.9 - Retention of urine, unspecified Status: Acute (9) Sepsis: Qualifiers: Sepsis acute organ dysfunction status: unspecified Sepsis type: sepsis due to unspecified organism Qualified Code(s): A41.9 - Sepsis, unspecified organism Code(s): A41.9 - Sepsis, unspecified organism Status: Acute (10) Hydrocele, bilateral: Code(s): N43.3 - Hydrocele, unspecified Status: Acute (11) Hyponatremia: Code(s): E87.1 - Hypo-osmolality and hyponatremia Status: Acute (12) Bacteremia: Code(s): R78.81 - Bacteremia Status: Acute (13) Elevated d-dimer: Code(s): R79.89 - Other specified abnormal findings of blood chemistry Status: Acute (14) Acute respiratory failure with hypoxia and hypercarbia: Code(s): J96.01 - Acute respiratory failure with hypoxia; J96.02 - Acute respiratory failure with hypercapnia Status: Acute Plan This is a 47-year-old male who to the ED with report of cellulitis scrotum. She noticed a lump on his lower scrotum last which became increasingly painful tender and swollen. He was seen at [facility] on Thursday and was started on Levaquin and was sent home patient continued to have worsening symptoms and started to drain from his lower scrotum and hence presented to the primary care doctor will direct him to go to the ER his scrotum has become size of a grapefruit. He has history of prediabetes and on glimepiride Jardiance and metformin. He also has underlying history of obstructive sleep apnea and uses CPAP hypertension hyperlipidemia hypothyroidism. The ED had borderline blood pressure with tachycardia afebrile examination is concerning for abscess cellulitis of the scrotum possible necrotizing fascitis. He was started on IV fluid resuscitation. CBC with leukocytosis 27.2 with left shift 80% neutrophils 10% band hyponatremia 129 bicarb was low at 18 is baseline bicarbonate is 40 due to his chronic respiratory failure with underlying obstructive sleep apnea and potentially obesity hypoventilation syndrome. His creatinine was 1.2 baseline was 0.8. Lactic acid was elevated at 2.2. Blood cultures were all obtained. CT scan of the pelvis was obtained which showed extensive scrotal skin thickening with no abscess no soft tissue gas. Scrotal ultrasound was also obtained which did not show any evidence of torsion good vascular blood flow bilaterally does show bilateral small hydroceles and again extensive skin thickening with no evidence of abscess. He met criteria for sepsis and was admitted for further treatment. Was started on vancomycin Rocephin and Flagyl Blood culture came back posit
[2023-07-07] MEDS: SODIUM BICARBONATE TAB 650 MG TABLET 1300 MG PO (16:16)
[2023-07-07] MEDS: HEPARIN SOD/D5W 100 UNITS/ML 25,000 UNITS/250 ML BAG 22 UNITS IV CONT (16:17)
[2023-07-07 17:08] LABS: Glucose Point of Care 93 mg/dl (65-105)
[2023-07-07] MEDS: ACETAMINOPHEN 500 MG TABLET 1000 MG PO (20:41)
[2023-07-07 20:44] LABS: Partial Thromboplastin Time 64.2 SECONDS (22.3-36.8)
[2023-07-07] MEDS: HEPARIN SODIUM 5,000 UNITS/ML VIAL 4500 UNITS IV PUSH (20:56)
[2023-07-07 23:34] LABS: Alveolar/Arterial O2 Gradient 93.6 mmHg; Base Excess ABG -5.2 mEq/l (+/-2.0); Fractional Inspired Oxygen 32 %; HCO3 ABG 20.4 mEq/l (22.0-26.0); Oxygen Content ABG 16.4 %vol (16.0-22.0); Oxygen Saturation ABG 96.1 % (95.0-100.0); Oxyhemoglobin 95.2 % THb (90.0-100.0); PCO2 ABG 39.9 mmHg (35.0-45.0); PO2 ABG 87.9 mmHg (80.0-100.0); PO2 FiO2 Ratio Arterial Blood 2.75 %; Total Hemoglobin 12.2 g/dL (12.0-18.0); pH ABG 7.326 (7.350-7.450)
[2023-07-07 23:39] LABS: Modified Allen's Test Pass; Site Drawn LEFT RADIAL
[2023-07-07 23:46] LABS: Device CPAP
[2023-07-07 23:47] LABS: CPAP 15 cmH2O
[2023-07-08] VITALS (32 sets, daily range): BP systolic 125–159; BP diastolic 52–76; PULSE 60–83; RESP 13–24; TEMP 36.1–36.7; O2SAT 93–100
[2023-07-08 02:14] LABS: Glucose Point of Care 87 mg/dl (65-105)
[2023-07-08] MEDS: OXACILLIN SODIUM 2 GM in SODIUM CHLORIDE 0.9% IV 100 ML IVPB ×5 (03:54→22:41)
[2023-07-08 05:24] LABS: Basophils Absolute Auto 0.2 K/mm3 (0.0-0.1); Basophils Percent Auto 1.1 % (0.2-1.2); Eosinophils Absolute Auto 0.6 K/mm3 (0-0.3); Hemoglobin 11.2 g/dL (14.0-18.0); Immature Granulocyte Absolute 1.36 K/mm3 (0.00-0.031); Immature Granulocyte Percent A 6.8 % (0-0.5); Lymphocytes Absolute Auto 2.03 K/mm3 (0.9-3.2); Lymphocytes Percent Auto 10.2 % (18.3-44.2); Mean Corpuscular HGB Conc 31.1 g/dl (32-36); Mean Corpuscular Hemoglobin 27.9 pg (26-34); Mean Corpuscular Volume 89.6 fl (80-100); Mean Platelet Volume 9.4 fl (7.4-10.4); Monocytes Absolute Auto 1.4 K/mm3 (0.1-0.6); Monocytes Percent Auto 6.8 % (2.6-8.5); Neutrophils Absolute Auto 14.4 K/mm3 (1.3-6.7); Neutrophils Percent Auto 72.1 % (45.5-73.1); Platelet Count Result 330 k/mm3 (150-375); Red Blood Count 4.02 M/mm3 (4.6-6.20); Red Cell Distribution Width 16.6 % (11.5-14.5)
[2023-07-08 05:37] LABS: Alanine Aminotransferase 14 U/L (6-50); Albumin Level 2.6 g/dL (3.5-5.1); Alkaline Phosphatase 150 U/L (38-126); Anion Gap 8 mmol/L (8-16); Aspartate Amino Transferase 26 U/L (17-59); Bilirubin,Total 0.3 mg/dL (0.2-1.3); Blood Urea Nitrogen 47 mg/dL (9-20); Calcium 7.8 mg/dL (8.4-10.2); Carbon Dioxide 19 mmol/L (22-30); Chloride 112 mmol/L (98-107); Estimated CRCL calculation 40 ml/min; Estimated Glomerular Filt Rate 20; Glucose 95 mg/dL (65-110); Magnesium 2.5 mg/dL (1.6-2.3); Potassium 3.6 mmol/L (3.4-5.0); Sodium 139 mmol/L (137-145)
--- NOTE | 2023-07-08 06:12 | WPDHPUPDATE1 ---
History and Physical Update Update Date/Time: 07/08/23 06:12 History and Physical has been reviewed, including an updated exam of the patient. There are NO changes in the patient's condition. Risks, benefits, and alternatives have been discussed and questions answered. Patient agrees to proceed with procedure.
--- NOTE | 2023-07-08 06:15 | WPDANESEPPF ---
Anes - Initial Pre Proc Eval Procedure: Operation Date: 07/06/23 16:00 Proposed Procedures p Incision Drainage and Washout Scrotal Abscess - Ildefonso Jackson MD Operation Date: 07/08/23 07:30 Proposed Procedures p Debridement Scrotal Abscess ,Placement Wound Vac - Tommie Bill MD Date/Time: 07/08/23 06:15 Surgeon: Oliver Black MD Pre Op Diagnosis: Sepsis, Cellulitis of Scrotum, Lactic Acidosis Patient Data Age: 47 Gender: M Height: 1.75 m Weight: 177.3 kg Last Vital Signs Temp 36.4 C 07/07/23 23:57 Pulse 67 07/08/23 04:24 Resp 22 H 07/07/23 23:57 BP 113/51 L 07/07/23 23:57 Pulse Ox 96 07/08/23 04:24 O2 Del Method Autopap 07/08/23 04:24 O2 Flow Rate 4 07/07/23 04:00 FiO2 21 07/06/23 07:56 Allergies Allergy/AdvReac Type Severity Reaction Status Date / Time No Known Drug Allergies Allergy Unknown Unknown Verified 07/01/23 01:29 Home Medications Medication Instructions Recorded Confirmed Type metformin 500 mg tablet 1,000 mg PO BIDWM 02/11/21 07/01/23 History metoprolol tartrate 50 mg tablet 100 mg PO BIDWM 02/11/21 07/01/23 History glimepiride 1 mg tablet (Amaryl) 1 mg PO DAILY 10/31/21 07/01/23 History irbesartan 150 mg tablet 150 mg PO DAILY 10/31/21 07/01/23 History levothyroxine 25 mcg tablet 75 mcg PO DAILY 10/31/21 07/01/23 History rosuvastatin 20 mg tablet 20 mg PO DAILY 10/31/21 07/01/23 History furosemide 40 mg tablet 40 mg PO DAILY #30 tabs 11/04/21 07/01/23 Rx empagliflozin 10 mg tablet 10 mg PO DAILY 07/01/23 07/01/23 History (Jardiance) Laboratory Tests 07/07/23 07/07/23 07/07/23 08:14 11:32 11:43 WBC RBC Hgb Hct MCV MCH MCHC RDW Plt Count MPV Immature Gran % (Auto) Neut % (Auto) Lymph % (Auto) Winkler % (Auto) Eos % (Auto) Baso % (Auto) Lymph # (Auto) Winkler # (Auto) Eos # (Auto) Baso # (Auto) Abs Immat Gran (auto) Absolute Neuts (auto) Absolute Nucleated RBC Nucleated RBC % APTT 45.3 H SECONDS (22.3-36.8) Puncture Site ABG pH ABG pCO2 ABG pO2 ABG PO2/FiO2 Ratio ABG HCO3 ABG O2 Saturation ABG O2 Content ABG Base Excess A-a Gradient Oxyhemoglobin Total Hemoglobin O2 Delivery Device O2 Liters/Min FiO2 CPAP Sodium Potassium Chloride Carbon Dioxide Anion Gap BUN Creatinine Estim Creat Clear Calc Estimated GFR Glucose POC Capillary Glucose 79 mg/dl 86 mg/dl (65-105) (65-105) Calcium Magnesium Total Bilirubin AST ALT Alkaline Phosphatase Total Protein Albumin 07/07/23 07/07/23 07/07/23 17:05 20:21 23:19 WBC RBC Hgb Hct MCV MCH MCHC RDW Plt Count MPV Immature Gran % (Auto) Neut % (Auto) Lymph % (Auto) Winkler % (Auto) Eos % (Auto) Baso % (Auto) Lymph # (Auto) Winkler # (Auto) Eos # (Auto) Baso # (Auto) Abs Immat Gran (auto) Absolute Neuts (auto) Absolute Nucleated RBC Nucleated RBC % APTT 64.2 H SECONDS (22.3-36.8) Puncture Site Left radial ABG pH 7.326 L (7.350-7.450) ABG pCO2 3
[2023-07-08] MEDS: LACTATED RINGERS 1,000 ML 30 ML IV CONT (06:45)
[2023-07-08 06:46] LABS: Glucose Point of Care 81 mg/dl (65-105)
--- NOTE | 2023-07-08 07:57 | W.PM.PROC2 ---
Procedure Note - Detailed Date of Procedure 07/08/23 Pre-op Diagnosis Scrotal abscess, scrotal gangrene Post-op Diagnosis Same Procedure Performed Scrotal debridement, placement of a wound VAC Surgeon Tommie Bill MD Anesthesia General Description of Procedure After the uneventful induction of a general LMA anesthetic patient is prepped in a lithotomy position. The packing and previously placed sutures in the scrotum are removed. There is some necrotic tissue along lateral edges of the incised skin. This is excised with both electrocautery and sharply with scissors. There is some fibrin is exudate on the anterior surface of the scrotal bed which is debrided. Hemostasis obtained with electrocautery. With the assistance of the wound care nurse a wound VAC was then placed. Blood loss was 20 cc. The patient tolerated this procedure well Urine Output 100 Drains No Packing Yes Pathology Yes Complications No immediate complications
[2023-07-08] MEDS: fentaNYL CITRATE INJ (*CRX) 100 MCG/2 ML VIAL 25 MCG IV PUSH ×4 (08:22→08:32)
[2023-07-08] MEDS: HYDROmorphone HCL INJ (*CRX) 1 MG/ML SYR 0.5 MG IV PUSH ×3 (08:35→08:57)
--- NOTE | 2023-07-08 08:47 | SUR.PHASEI ---
Patient told RN it wasn't necessary to update his mom at this time.
[2023-07-08 09:14] LABS: Glucose Point of Care 97 mg/dl (65-105)
[2023-07-08] MEDS: SODIUM BICARBONATE TAB 650 MG TABLET 1300 MG PO ×2 (11:05→17:37)
[2023-07-08] MEDS: METOPROLOL TARTRATE 50 MG TAB 100 MG PO ×2 (11:06→20:11)
[2023-07-08] MEDS: ROSUVASTATIN 10 MG TABLET 20 MG PO (11:08)
--- NOTE | 2023-07-08 12:26 | P.PNNP_ITS ---
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 hypotension on admission * urinary retention * evaluation to date: * renal ultrasound pending * urine electrolytes pre-renal * urine eosinophils * CPK normal * moderate proteinuria * holding irbesartan * metabolic acidosis compensated with oral bicarbonate * follow trend of repeat labs and UOP (2) Sepsis: Qualifiers: Sepsis acute organ dysfunction status: unspecified Sepsis type: sepsis due to unspecified organism Qualified Code(s): A41.9 - Sepsis, unspecified organism Code(s): A41.9 - Sepsis, unspecified organism Status: Acute Assessment and Plan: * felt to be secondary to #3 * positive blood cultures noted - MSSA * follow repeat blood cultures (negative to date) * wound culture with yeast and MSSA * on IV antibiotics * stable hemodynamics at this time * continue current therapy (3) Cellulitis of scrotum: Code(s): N49.2 - Inflammatory disorders of scrotum Status: Acute Assessment and Plan: * as noted by admission exam * CT scan and scrotal U/S results noted * Urology following * s/p scrotal exploration, incision and drainage/debridement and wound packing (on 07/06) * s/p crotal debridement and placement of a wound VAC (on 07/08) * on antibiotics * continue supportive therapy (4) Bacteremia: Code(s): R78.81 - Bacteremia Status: Acute Assessment and Plan: * see #2 (5) HTN (hypertension): Code(s): I10 - Essential (primary) hypertension Status: Chronic Assessment and Plan: * stable hemodynamics noted * follow closely given #2 (6) Diabetes: Qualifiers: Diabetes mellitus type: type 2 Diabetes mellitus assisted insulin use: without buttermaker helper use Diabetes mellitus complication status: without complication Qualified Code(s): E11.9 - Type 2 diabetes mellitus without complications Code(s): E11.9 - Type 2 diabetes mellitus without complications Status: Acute Assessment and Plan: * follow accu-cheks * glycemic control per hospitalists Will continue to follow. Subjective Date/time seen: 07/08/23 12:26 Interval history: Follow-up for acute kidney injury/acute renal failure. S/P scrotal debridement and placement of a wound VAC by Urology earlier today; pain control seems reasonably; continue to make good urine output with slow im provement in renal function/creatinine; no other issues/events overnight. Exam Narrative: General: large WD/WN male in NAD Heart: normal S1 and S2; no rub Lungs: coarse breath sounds Abdomen: soft, nontender, nondistended, positive bowel sounds; scrotal wound vac noted Extremities: no cyanosis or clubbing; no edema Skin: warm an dry Objective Data Vital Signs Vital Signs: Vital Signs Temp Pulse Resp BP Pulse Ox O2 Del Method O2 Flow Rate 07/08/23 12:15 97.3 F L 67 20 142/66 H 94 07/08/23 11:45 97.4 F L 74 14
--- NOTE | 2023-07-08 12:26 | PM.PNNEP ---
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 on admission urinary retention evaluation to date: renal ultrasound pending urine electrolytes pre-renal urine eosinophils CPK normal moderate proteinuria holding irbesartan metabolic acidosis compensated with oral bicarbonate follow trend of repeat labs and UOP (2) Sepsis: Qualifiers: Sepsis acute organ dysfunction status: unspecified Sepsis type: sepsis due to unspecified organism Qualified Code(s): A41.9 - Sepsis, unspecified organism Code(s): A41.9 - Sepsis, unspecified organism Status: Acute Assessment and Plan: felt to be secondary to #3 positive blood cultures noted - MSSA follow repeat blood cultures (negative to date) wound culture with yeast and MSSA on IV antibiotics stable hemodynamics at this time continue current therapy (3) Cellulitis of scrotum: Code(s): N49.2 - Inflammatory disorders of scrotum Status: Acute Assessment and Plan: as noted by admission exam CT scan and scrotal U/S results noted Urology following s/p scrotal exploration, incision and drainage/debridement and wound packing (on 07/06) s/p crotal debridement and placement of a wound VAC (on 07/08) on antibiotics continue supportive therapy (4) Bacteremia: Code(s): R78.81 - Bacteremia Status: Acute Assessment and Plan: see #2 (5) HTN (hypertension): Code(s): I10 - Essential (primary) hypertension Status: Chronic Assessment and Plan: stable hemodynamics noted follow closely given #2 (6) Diabetes: Qualifiers: Diabetes mellitus type: type 2 Diabetes mellitus fdc insulin use: without fdc 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 Subjective Date/time seen: 07/08/23 12:26 Interval history: Follow-up for acute kidney injury/acute renal failure. S/P scrotal debridement and placement of a wound VAC by Urology earlier today; pain control seems reasonably; continue to make good urine output with slow improvement in renal function/creatinine; no other issues/events overnight. Exam Narrative: General: large WD/WN male in NAD Heart: normal S1 and S2; no rub Lungs: coarse breath sounds Abdomen: soft, nontender, nondistended, positive bowel sounds; scrotal wound vac noted Extremities: no cyanosis or clubbing; no edema Skin: warm an dry Objective Data Vital Signs Vital Signs: Vital Signs Temp Pulse Resp BP Pulse Ox O2 Del Method O2 Flow Rate 07/08/23 12:15 97.3 F L 67 20 142/66 H 94 07/08/23 11:45 97.4 F L 74 146/64 H 07/08/23 11:41 95 Nasal Cannula 2 07/08/23 10:45 97.8 F 77 16 129/66 98 07/08/23 10:15 97.8 F 70 16 149/65 H 96 07/08/23 10:00 97.8 F 71 16 148/67 H 95 07/08/23 11:15 97.6 F 79 20 159/64 H 100 07/08/23 10:30 97.8 F 70 16 148/63 H 95 07/08/23 11:06 80 07/08/23 06:30 98.1 F 64 18 136/68 98 Room Air 07/08/23 09:25 70 13 139/76 96 Nasal Cannula 2 07/08/23 09:10 75 15 136/58 L 94 Nasal Cannula 2 07/08/23 08:55 79 19 138/52 L 93 Room Air 07/08/23 08:40 77 16 126/60 99 Simple Face Mask 8 07/08/23 08:25 80 19 150/65 H 99 Simple Face Mask
[2023-07-08] MEDS: SACCHAROMYCES BOULARDII 250 MG CAPSULE PO ×2 (12:49→17:37)
[2023-07-08 16:07] LABS: Glucose Point of Care 171 mg/dl (65-105)
--- NOTE | 2023-07-08 16:42 | PM.IMPN ---
Progress Note: A&P Assessment and Plan (1) Sepsis: Qualifiers: Sepsis acute organ dysfunction status: unspecified Sepsis type: sepsis due to unspecified organism Qualified Code(s): A41.9 - Sepsis, unspecified organism Code(s): A41.9 - Sepsis, unspecified organism Status: Acute Assessment and Plan: Patient with sepsis present on admission with tachycardia, JOSE, leukocytosis and lactic acidosis. Sources cellulitis of the scrotum. BCx 06/30 growing methicillin sensitive Staph aureus. BCx 07/02 negative WCx 07/04 growing yeast and Staph aureus. Echo EF 60-65% with abnml diastolic dysfunction. Currently on oxacillin only for the Staph bacteremia. WBC trending down. (2) Cellulitis of scrotum: Code(s): N49.2 - Inflammatory disorders of scrotum Status: Acute Assessment and Plan: Pelvic CT howing extensive scrotal skin thickening and reactive lymphadenopathy. Scrotal US 06/30 showed small bilateral hydroceles and extensive scrotal skin thickening Repeat scrotal US 07/04 showing severe scrotal edema with cellulitis, large volume simple right hydrocele and moderate volume complex left hydrocele Urology consulted. Appreciate their input. Patient taken for scrotal exploration, debridement and I&D on 07/06/23 Patient just back from repeat debridement earlier this morning. Will add Flagyl. (3) Scrotal abscess: Code(s): N49.2 - Inflammatory disorders of scrotum Status: Acute Assessment and Plan: as above (4) Acute kidney injury: Code(s): N17.9 - Acute kidney failure, unspecified Status: Acute Assessment and Plan: Normal baseline Cr in 2021. Cr 1.2 on admission but climbed to 4.6. Probably related to sepsis. Renal US showing no hydronephrosis. Cr improving He also has metabolic acidosis for which has been placed on oral bicarb. Nephrology consulted and appreciate their input. Excellent UOP. 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 The patient's blood glucose was reviewed on 07/08 Glucose remains well controlled. Continue AccuCheks covering with sliding scale. Hypoglycemia protocol available as needed. Continue to follow (6) (HFpEF) heart failure with preserved ejection fraction: Code(s): I50.30 - Unspecified diastolic (congestive) heart failure Status: Acute Assessment and Plan: Patient with hx of chronic diastolic CHF. Echo as above Does not appear fluid overloaded. Monitor closely. (7) Obstructive sleep apnea on CPAP: Code(s): G47.33 - Obstructive sleep apnea (adult) (pediatric); Z99.89 - Dependence on other enabling machines and devices Status: Acute Assessment and Plan: Compliant with CPAP here. Continue the same. (8) Obesity hypoventilation syndrome: Code(s): E66.2 - Morbid (severe) obesity with alveolar hypoventilation Status: Acute Assessment and Plan: As above. BMI 58. Encourage healthy lifestyle choices. (9) Urinary retention: Code(s): R33.9 - Retention of urine, unspecified Status: Acute Assessment and Plan: Possible urine retention related to the scrotal edema. Benz secured. Renal US showing no hydronephrosis. Benz trial when able. (10) Hydrocele, bilateral: Code(s): N43.3 - Hydrocele, unspecified Status: Acute Assessment and Plan: As above (11) Hyponatremia: Code(s): E87.1 - Hypo-osmolality and hyponatremia Status: Acute Assessment and Plan: Na mow on admssion felt rela
--- NOTE | 2023-07-08 16:48 | PC.NURSE ---
3395- Returned to room post surgical procedure- VSS- pt drowsy and appropriate- wound vac intact to scrotal area- family at bedside
--- NOTE | 2023-07-08 18:35 | PC.NURSE ---
1745- bed on 3rd medical/tele- report given to Susan POWER- transferred to room 345 via bed- pt a/o x3 denies pain - wound vac continuous suction
[2023-07-08 18:58] LABS: Partial Thromboplastin Time 32.1 SECONDS (22.3-36.8)
[2023-07-08 19:55] LABS: INR 1.1
[2023-07-08 20:03] LABS: Basophils Absolute Auto 0.2 K/mm3 (0.0-0.1); Basophils Percent Auto 0.9 % (0.2-1.2); Eosinophils Absolute Auto 0.2 K/mm3 (0-0.3); Hematocrit 36.3 % (42.0-52.0); Hemoglobin 11.1 g/dL (14.0-18.0); Immature Granulocyte Absolute 1.26 K/mm3 (0.00-0.031); Immature Granulocyte Percent A 6.5 % (0-0.5); Lymphocytes Absolute Auto 1.47 K/mm3 (0.9-3.2); Lymphocytes Percent Auto 7.6 % (18.3-44.2); Mean Corpuscular HGB Conc 30.6 g/dl (32-36); Mean Corpuscular Hemoglobin 27.5 pg (26-34); Mean Corpuscular Volume 89.9 fl (80-100); Mean Platelet Volume 9.4 fl (7.4-10.4); Monocytes Absolute Auto 1.3 K/mm3 (0.1-0.6); Monocytes Percent Auto 6.7 % (2.6-8.5); Neutrophils Percent Auto 77.3 % (45.5-73.1); Nucleated Red Blood Cells Perc 0.1 % (0.0-0.2); Platelet Count Result 394 k/mm3 (150-375); Red Blood Count 4.04 M/mm3 (4.6-6.20); Red Cell Distribution Width 16.6 % (11.5-14.5); White Blood Count 19.4 K/mm3 (4.5-10.0)
[2023-07-08] MEDS: metroNIDAZOLE 500 MG/ISO 100ML 500 MG/100 ML BAG 100 MG IVPB (20:07)
[2023-07-08] MEDS: HEPARIN SOD/D5W 100 UNITS/ML 25,000 UNITS/250 ML BAG 15 UNITS IV CONT (20:17)
[2023-07-08] MEDS: HEPARIN SODIUM 5,000 UNITS/ML VIAL 9000 UNITS IV PUSH (20:18)
[2023-07-08 20:30] LABS: Platelet Estimate Increased (Adequate)
[2023-07-08 20:31] LABS: Anisocytosis 2+ (NORMAL); Hypochromasia 1+ (NORMAL); Schistocytes None Seen (NORMAL)
[2023-07-08 21:02] LABS: Glucose Point of Care 111 mg/dl (65-105)
[2023-07-09] VITALS (18 sets, daily range): BP systolic 155–171; BP diastolic 61–74; PULSE 63–86; RESP 16–18; TEMP 36.3–37.2; O2SAT 95–100
[2023-07-09] MEDS: OXACILLIN SODIUM 2 GM in SODIUM CHLORIDE 0.9% IV 100 ML IVPB ×3 (00:10→08:46)
[2023-07-09] MEDS: metroNIDAZOLE 500 MG/ISO 100ML 500 MG/100 ML BAG 100 MG IVPB ×3 (01:22→17:42)
[2023-07-09 02:30] LABS: Hematocrit 32.3 % (42.0-52.0); Hemoglobin 10.1 g/dL (14.0-18.0); Mean Corpuscular HGB Conc 31.3 g/dl (32-36); Mean Corpuscular Hemoglobin 27.7 pg (26-34); Mean Corpuscular Volume 88.5 fl (80-100); Mean Platelet Volume 9.3 fl (7.4-10.4); Platelet Count Result 345 k/mm3 (150-375); Red Blood Count 3.65 M/mm3 (4.6-6.20); Red Cell Distribution Width 16.3 % (11.5-14.5); White Blood Count 19.8 K/mm3 (4.5-10.0)
[2023-07-09 02:41] LABS: Alanine Aminotransferase 14 U/L (6-50); Albumin Level 2.6 g/dL (3.5-5.1); Alkaline Phosphatase 129 U/L (38-126); Anion Gap 6 mmol/L (8-16); Aspartate Amino Transferase 32 U/L (17-59); Bilirubin,Total 0.3 mg/dL (0.2-1.3); Blood Urea Nitrogen 41 mg/dL (9-20); Calcium 7.5 mg/dL (8.4-10.2); Carbon Dioxide 21 mmol/L (22-30); Chloride 112 mmol/L (98-107); Estimated CRCL calculation 43 ml/min; Estimated Glomerular Filt Rate 22; Glucose 117 mg/dL (65-110); Magnesium 2.3 mg/dL (1.6-2.3); Partial Thromboplastin Time 42.4 SECONDS (22.3-36.8); Phosphorus 4.7 mg/dL (2.5-4.5); Potassium 3.2 mmol/L (3.4-5.0); Sodium 139 mmol/L (137-145)
[2023-07-09] MEDS: HEPARIN SODIUM 5,000 UNITS/ML VIAL 9000 UNITS IV PUSH ×2 (03:08→16:29)
[2023-07-09 04:55] LABS: Band Neutrophils Percent 6 % (0-6); Lymphocytes Absolute Manual 3.36 K/mm3 (1.1-4.5); Monocytes Absolute Manual 1.18 K/mm3 (0.1-0.90); Monocytes Percent Manual 6 % (3-9); Neutrophils Absolute Manual 15.24 K/mm3 (1.3-6.7); Neutrophils Percent Manual 71 % (46-73); Total Cells Counted 100
[2023-07-09 04:56] LABS: Anisocytosis 1+ (NORMAL); Hypochromasia 1+ (NORMAL); Platelet Estimate Adequate (Adequate); Schistocytes None Seen (NORMAL)
[2023-07-09] MEDS: LEVOTHYROXINE SODIUM 75 MCG TABLET PO (05:37)
[2023-07-09] MEDS: METOPROLOL TARTRATE 50 MG TAB 100 MG PO ×2 (08:44→20:05)
[2023-07-09] MEDS: SACCHAROMYCES BOULARDII 250 MG CAPSULE PO ×3 (08:45→16:34)
[2023-07-09] MEDS: SODIUM BICARBONATE TAB 650 MG TABLET 1300 MG PO ×2 (08:45→16:34)
[2023-07-09] MEDS: ROSUVASTATIN 10 MG TABLET 20 MG PO (08:45)
[2023-07-09 09:03] LABS: Glucose Point of Care 102 mg/dl (65-105)
[2023-07-09 09:20] LABS: Partial Thromboplastin Time 92.8 SECONDS (22.3-36.8)
--- NOTE | 2023-07-09 10:42 | PCNWS ---
Weekly nutritional screen. Patient is tolerating current diet with adequate intake. No weight loss reported. No nutritional needs at this time.
[2023-07-09] MEDS: HEPARIN SOD/D5W 100 UNITS/ML 25,000 UNITS/250 ML BAG 20 UNITS IV CONT (10:58)
[2023-07-09 12:05] LABS: Glucose Point of Care 132 mg/dl (65-105)
[2023-07-09] MEDS: ceFAZolin 2 GM/D5W 50 ML 2 GM/50 ML BAG IVPB ×2 (13:30→23:03)
[2023-07-09] MEDS: traMADol HCL (*CRX) 50 MG TABLET PO (13:34)
--- NOTE | 2023-07-09 14:11 | PM.IMPN ---
Progress Note: A&P Assessment and Plan (1) Sepsis: Qualifiers: Sepsis acute organ dysfunction status: unspecified Sepsis type: sepsis due to unspecified organism Qualified Code(s): A41.9 - Sepsis, unspecified organism Code(s): A41.9 - Sepsis, unspecified organism Status: Acute Assessment and Plan: Patient with sepsis present on admission with tachycardia, JOSE, leukocytosis and lactic acidosis. Sources cellulitis of the scrotum. BCx 06/30 growing methicillin sensitive Staph aureus. BCx 07/02 negative WCx 07/04 growing yeast and Staph aureus. Echo EF 60-65% with abnml diastolic dysfunction. No obvious vegetations Currently on oxacillin and Flagyl WBC unchanged but just had procedure yesterday. If no improvement, would broaden coverage with anti-fungal. (2) Cellulitis of scrotum: Code(s): N49.2 - Inflammatory disorders of scrotum Status: Acute Assessment and Plan: Pelvic CT 06/30 showing extensive scrotal skin thickening and reactive lymphadenopathy. Scrotal US 06/30 showed small bilateral hydroceles and extensive scrotal skin thickening Repeat scrotal US 07/04 showing severe scrotal edema with cellulitis, large volume simple right hydrocele and moderate volume complex left hydrocele Urology consulted. Appreciate their input. Patient taken for scrotal exploration, debridement and I&D on 07/06 with repeat debridement 07/08 Continue IV abx. (3) Scrotal abscess: Code(s): N49.2 - Inflammatory disorders of scrotum Status: Acute Assessment and Plan: As above (4) Acute kidney injury: Code(s): N17.9 - Acute kidney failure, unspecified Status: Acute Assessment and Plan: Normal baseline Cr in 2021. Cr 1.2 on admission but climbed to 4.6. Probably related to sepsis. Renal US showing no hydronephrosis. Cr improving slowly to 3.1 He also has metabolic acidosis for which has been placed on oral bicarb. Nephrology consulted and appreciate their input. Excellent UOP. Follow UOP, electrolytes and renal fxn (5) Diabetes: Qualifiers: Diabetes mellitus type: type 2 Diabetes mellitus senior care insulin use: without vermin exterminator use Diabetes mellitus complication status: without complication Qualified Code(s): E11.9 - Type 2 diabetes mellitus without complications Code(s): E11.9 - Type 2 diabetes mellitus without complications Status: Acute Assessment and Plan: A1c 6.2. The patient's blood glucose was reviewed on Glucose remains well controlled. Continue AccuCheks covering with sliding scale. Hypoglycemia protocol available as needed. Continue to follow (6) (HFpEF) heart failure with preserved ejection fraction: Code(s): I50.30 - Unspecified diastolic (congestive) heart failure Status: Acute Assessment and Plan: Patient with hx of chronic diastolic CHF. Echo as above Does not appear fluid overloaded. Monitor closely. (7) Obstructive sleep apnea on CPAP: Code(s): G47.33 - Obstructive sleep apnea (adult) (pediatric); Z99.89 - Dependence on other enabling machines and devices Status: Acute Assessment and Plan: Compliant with BiPAP here. Continue the same. (8) Obesity hypoventilation syndrome: Code(s): E66.2 - Morbid (severe) obesity with alveolar hypoventilation Status: Acute Assessment and Plan: As above. BMI 58. Encourage healthy lifestyle choices. (9) Urinary retention: Code(s): R33.9 - Retention of urine, unspecified Status: Acute Assessment and Plan: Possible urine retention related to the scrotal edema. Bezn secured. Renal US showing no hydronephrosis. Benz trial when able. (10) Hydrocele, bilateral: Code(s): N43.3 - Hydrocele, unspecified Status: Acute Assessment and Plan: As above (11) Hyponatremia: Code(s): E87.1 - Hypo-osmolality and hyponatremia Sta
--- NOTE | 2023-07-09 14:16 | P.PNNP_ITS ---
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 * relative hypotension on admission * urinary retention * evaluation to date: * renal ultrasound pending * urine electrolytes pre-renal * urine eosinophils * CPK normal * moderate proteinuria * holding irbesartan * metabolic acidosis compensated with oral bicarbonate * follow trend of repeat labs and UOP (2) Sepsis: Qualifiers: Sepsis acute organ dysfunction status: unspecified Sepsis type: sepsis due to unspecified organism Qualified Code(s): A41.9 - Sepsis, unspecified organism Code(s): A41.9 - Sepsis, unspecified organism Status: Acute Assessment and Plan: * felt to be secondary to #3 * positive blood cultures noted - MSSA * follow repeat blood cultures (negative to date) * wound culture with yeast and MSSA * on IV antibiotics * stable hemodynamics at this time * continue current therapy (3) Cellulitis of scrotum: Code(s): N49.2 - Inflammatory disorders of scrotum Status: Acute Assessment and Plan: * as noted by admission exam * CT scan and scrotal U/S results noted * Urology following * s/p scrotal exploration, incision and drainage/debridement and wound packing (on 07/06) * s/p crotal debridement and placement of a wound VAC (on 07/08) * on antibiotics * WBC slightly better * continue supportive therapy (4) Bacteremia: Code(s): R78.81 - Bacteremia Status: Acute Assessment and Plan: * see #2 (5) HTN (hypertension): Code(s): I10 - Essential (primary) hypertension Status: Chronic Assessment and Plan: * stable hemodynamics noted * follow closely given #2 (6) Diabetes: Qualifiers: Diabetes mellitus type: type 2 Diabetes mellitus buttermaker insulin use: without prison use Diabetes mellitus complication status: without complicati on Qualified Code(s): E11.9 - Type 2 diabetes mellitus without complications Code(s): E11.9 - Type 2 diabetes mellitus without complications Status: Acute Assessment and Plan: * follow accu-cheks * glycemic control per hospitalists Will continue to follow. Subjective Date/time seen: 07/09/23 14:16 Interval history: Follow-up for acute kidney injury/acute renal failure. Tolerated surgical intervention yesterday without any issues or problems; pain seems under fair control with current medication regimen; continues to make good urine output with slow improvement in renal function/creatinine by trend of labs; no apparent distress voiced at the time of my visit. Exam Narrative: General: large WD/WN male in NAD Heart: normal S1 and S2; no rub Lungs: coarse breath sounds Abdomen: soft, nontender, nondistended, positive bowel sounds; scrotal wound vac present Extremities: no cyanosis or clubbing; no edema Skin: Warm and intact Objective Data Vital Signs Vital Signs: Vital Signs Temp Pulse Resp BP Pulse Ox O2 Del Method FiO2
--- NOTE | 2023-07-09 14:16 | PM.PNNEP ---
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 hypotension on admission urinary retention evaluation to date: renal ultrasound pending urine electrolytes pre-renal urine eosinophils CPK normal moderate proteinuria holding irbesartan metabolic acidosis compensated with oral bicarbonate follow trend of repeat labs and UOP (2) Sepsis: Qualifiers: Sepsis acute organ dysfunction status: unspecified Sepsis type: sepsis due to unspecified organism Qualified Code(s): A41.9 - Sepsis, unspecified organism Code(s): A41.9 - Sepsis, unspecified organism Status: Acute Assessment and Plan: felt to be secondary to #3 positive blood cultures noted - MSSA follow repeat blood cultures (negative to date) wound culture with yeast and MSSA on IV antibiotics stable hemodynamics at this time continue current therapy (3) Cellulitis of scrotum: Code(s): N49.2 - Inflammatory disorders of scrotum Status: Acute Assessment and Plan: as noted by admission exam CT scan and scrotal U/S results noted Urology following s/p scrotal exploration, incision and drainage/debridement and wound packing (on 07/06) s/p crotal debridement and placement of a wound VAC (on 07/08) on antibiotics WBC slightly better continue supportive therapy (4) Bacteremia: Code(s): R78.81 - Bacteremia Status: Acute Assessment and Plan: see #2 (5) HTN (hypertension): Code(s): I10 - Essential (primary) hypertension Status: Chronic Assessment and Plan: stable hemodynamics noted follow closely given #2 (6) Diabetes: Qualifiers: Diabetes mellitus type: type 2 Diabetes mellitus 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 Subjective Date/time seen: 07/09/23 14:16 Interval history: Follow-up for acute kidney injury/acute renal failure. Tolerated surgical intervention yesterday without any issues or problems; pain seems under fair control with current medication regimen; continues to make good urine output with slow improvement in renal function/creatinine by trend of labs; no apparent distress voiced at the time of my visit. Exam Narrative: General: large WD/WN male in NAD Heart: normal S1 and S2; no rub Lungs: coarse breath sounds Abdomen: soft, nontender, nondistended, positive bowel sounds; scrotal wound vac present Extremities: no cyanosis or clubbing; no edema Skin: Warm and intact Objective Data Vital Signs Vital Signs: Vital Signs Temp Pulse Resp BP Pulse Ox O2 Del Method FiO2 07/09/23 12:05 66 07/09/23 10:40 18 96 07/09/23 08:05 67 07/09/23 08:00 97.4 F L 63 18 165/61 H 99 07/09/23 08:41 16 95 07/09/23 08:41 Room Air 07/09/23 09:16 96 Room Air 21 07/09/23 08:44 72 07/09/23 07:21 16 07/09/23 04:00 86 07/09/23 04:53 97.9 F 63 18 155/61 H 97 07/09/23 01:55 63 96 Autopap 07/09/23 00:00 84 07/08/23 21:30 61 94 Autopap 07/08/23 20:00 73 07/08/23 22:00 97.7 F 60 16 144/62 H 93 07/08/23 20:11 63 07/08/23 18:00 16 96 Intake/Output Intake/Output: Intake & Output 02
--- NOTE | 2023-07-09 15:36 | WPDUROPN2 ---
Progress Note: A&P Assessment and Plan (1) Cellulitis of scrotum: Code(s): N49.2 - Inflammatory disorders of scrotum Status: Acute (2) Scrotal abscess: Code(s): N49.2 - Inflammatory disorders of scrotum Status: Acute Plan 07/06/2023 had scrotal exploration, debridement, I and D and wound packing 07/08/2023 had scrotal debridement and wound VAC placement Leukocytosis is persistent Continue to monitor wound Subjective Subjective Date/Time Seen: 07/09/23 15:36 Interval history: Riaz is feeling fairly well today. Reports pain is well controlled. Thinks he has had some improvement in swelling. No issues with Benz catheter which is draining clear yellow urine. Tolerating his diet. No nausea, vomiting, fever, chills. WBC 19.8. Creatinine 3.1. Review of Systems Review of Systems: All systems reviewed & are unremarkable except as noted in HPI and below Exam Narrative: General: Awake, alert, comfortable, no acute distress HEENT: Normocephalic, atraumatic, sclerae anicteric Respiratory: Normal respiratory effort, no accessory muscle use Abdomen: Nondistended, soft, nontender : Wound VAC in place overlying scrotum Skin: Normal coloration, warm and dry Neurologic: No focal neuro deficits noted Psychiatric: Appropriate mood and affect, judgment and insight intact Objective Data Vital Signs Vital Signs: Vital Signs - 24 hr 07/08/23 16:00 07/08/23 18:00 07/08/23 16:00 Temperature Pulse Rate 74 Respiratory Rate 16 16 Blood Pressure Pulse Oximetry 95 96 Oxygen Delivery Fraction of Inspired Oxygen 07/08/23 20:11 07/08/23 22:00 07/08/23 20:00 Temperature 97.7 F Pulse Rate 63 60 73 Respiratory Rate 16 Blood Pressure 144/62 H Pulse Oximetry 93 Oxygen Delivery Fraction of Inspired Oxygen 07/08/23 21:30 07/09/23 00:00 07/09/23 01:55 Temperature Pulse Rate 61 84 63 Respiratory Rate Blood Pressure Pulse Oximetry 94 96 Oxygen Delivery Autopap Autopap Fraction of Inspired Oxygen 07/09/23 04:53 07/09/23 04:00 07/09/23 07:21 Temperature 97.9 F Pulse Rate 63 86 Respiratory Rate 18 16 Blood Pressure 155/61 H Pulse Oximetry 97 Oxygen Delivery Fraction of Inspired Oxygen 07/09/23 08:44 07/09/23 09:16 07/09/23 08:41 Temperature Pulse Rate 72 Respiratory Rate Blood Pressure Pulse Oximetry 96 Oxygen Delivery Room Air Room Air Fraction of Inspired Oxygen 21 07/09/23 08:41 07/09/23 08:00 07/09/23 08:05 Temperature 97.4 F L Pulse Rate 63 67 Respiratory Rate 16 18 Blood Pressure 165/61 H Pulse Oximetry 95 99 Oxygen Delivery Fraction of Inspired Oxygen 07/09/23 10:40 Temperature Pulse Rate Respiratory Rate 18 Blood Pressure Pulse Oximetry 96 Oxygen Delivery Fraction of Inspired Oxygen Intake/Output Intake/Output: Intake & Output 07/06/23 07/07/23 07/08/23 07/09/23 23:59 23:59 23:59 23:59 Intake Total 1700 1918 2735 2334 Output Total 2145 3700 2735 3300 Balance -445 -9062 0 -966 Meds/Results Medications: Active Medications Generic Name Dose Route Start Last Admin Trade Name Freq PRN Reason Stop Dose Admin Acetaminophen 1,000 mg 07/01/23 03:03 07/07/23 20:41 Acetaminophen 500 Mg Tablet PO 1,000 mg Q6H PRN Administration Mild Pain (1-3) or Fever Calcium Carbonate 200 mg 07/01/23 19:41 07/05/23 18:51 Calcium Carbonate (Tums) 500 Mg (200 Mg Elemental) PO 200 mg Q6H PRN Administration Indigestion Dextrose 12.5 gm 06/30/23 23:03 Dextrose 50% 25 Gm/50 Ml Syringe IV PUSH PRN PRN Hypoglycemia Protocol Furosemide 40 mg 07/07/23 09:00 Furosemide 40 Mg Tablet PO DAILY DILEEP Glucagon 1 mg 06/30/23 23:03 Glucagon For Inj 1 Mg Vial IM PRN PRN Hypoglycemia Protocol Glucose 15 gm 06/30/23 23:03 Glucose Oral Gel 15 Gm Of Glucse In 37.5 Gm Tube
[2023-07-09 16:03] LABS: Partial Thromboplastin Time 49.9 SECONDS (22.3-36.8)
[2023-07-09 17:11] LABS: Glucose Point of Care 159 mg/dl (65-105)
[2023-07-09] MEDS: ACETAMINOPHEN 500 MG TABLET 1000 MG PO (20:05)
[2023-07-09 20:22] LABS: Glucose Point of Care 174 mg/dl (65-105)
[2023-07-09] MEDS: HEPARIN SOD/D5W 100 UNITS/ML 25,000 UNITS/250 ML BAG 25 UNITS IV CONT (22:59)
[2023-07-10] VITALS (12 sets, daily range): BP systolic 120–167; BP diastolic 57–66; PULSE 56–68; RESP 16; TEMP 36.1–36.7; O2SAT 97–98
[2023-07-10 00:34] LABS: Partial Thromboplastin Time 146.1 SECONDS (22.3-36.8)
[2023-07-10] MEDS: ACETAMINOPHEN 500 MG TABLET 1000 MG PO ×4 (02:06→18:16)
[2023-07-10] MEDS: metroNIDAZOLE 500 MG/ISO 100ML 500 MG/100 ML BAG 100 MG IVPB ×3 (02:07→17:04)
[2023-07-10 06:02] LABS: Basophils Absolute Auto 0.2 K/mm3 (0.0-0.1); Basophils Percent Auto 1.1 % (0.2-1.2); Eosinophils Absolute Auto 0.6 K/mm3 (0-0.3); Eosinophils Percent Auto 3.4 % (0-4.4); Hematocrit 32.6 % (42.0-52.0); Immature Granulocyte Absolute 1.45 K/mm3 (0.00-0.031); Immature Granulocyte Percent A 9.1 % (0-0.5); Lymphocytes Absolute Auto 2.43 K/mm3 (0.9-3.2); Lymphocytes Percent Auto 15.2 % (18.3-44.2); Mean Corpuscular HGB Conc 30.7 g/dl (32-36); Mean Corpuscular Hemoglobin 27.5 pg (26-34); Mean Corpuscular Volume 89.8 fl (80-100); Mean Platelet Volume 9.3 fl (7.4-10.4); Monocytes Absolute Auto 1.4 K/mm3 (0.1-0.6); Monocytes Percent Auto 8.7 % (2.6-8.5); Neutrophils Percent Auto 62.5 % (45.5-73.1); Platelet Count Result 272 k/mm3 (150-375); Red Blood Count 3.63 M/mm3 (4.6-6.20); Red Cell Distribution Width 16.3 % (11.5-14.5)
[2023-07-10] MEDS: LEVOTHYROXINE SODIUM 75 MCG TABLET PO (06:15)
[2023-07-10] MEDS: ceFAZolin 2 GM/D5W 50 ML 2 GM/50 ML BAG IVPB ×3 (06:15→21:58)
[2023-07-10 06:22] LABS: Albumin Level 2.6 g/dL (3.5-5.1); Anion Gap 6 mmol/L (8-16); Blood Urea Nitrogen 33 mg/dL (9-20); Calcium 7.6 mg/dL (8.4-10.2); Carbon Dioxide 23 mmol/L (22-30); Chloride 110 mmol/L (98-107); Estimated CRCL calculation 46 ml/min; Estimated Glomerular Filt Rate 23; Glucose 108 mg/dL (65-110); Magnesium 2.1 mg/dL (1.6-2.3); Phosphorus 5.8 mg/dL (2.5-4.5); Potassium 3.2 mmol/L (3.4-5.0); Sodium 139 mmol/L (137-145)
[2023-07-10 06:29] LABS: Hypochromasia 1+ (NORMAL); Platelet Estimate Adequate (Adequate); Schistocytes None Seen (NORMAL)
[2023-07-10 07:50] LABS: Glucose Point of Care 105 mg/dl (65-105)
[2023-07-10 08:34] LABS: Partial Thromboplastin Time 84.3 SECONDS (22.3-36.8)
[2023-07-10] MEDS: HEPARIN SOD/D5W 100 UNITS/ML 25,000 UNITS/250 ML BAG 22 UNITS IV CONT ×2 (08:41→12:35)
[2023-07-10] MEDS: METOPROLOL TARTRATE 50 MG TAB 100 MG PO ×2 (08:46→20:26)
[2023-07-10] MEDS: POTASSIUM CHLORIDE 20 MEQ ER TABLET PO (08:46)
[2023-07-10] MEDS: ROSUVASTATIN 10 MG TABLET 20 MG PO (08:46)
[2023-07-10] MEDS: SACCHAROMYCES BOULARDII 250 MG CAPSULE PO ×3 (08:46→17:04)
[2023-07-10] MEDS: SODIUM BICARBONATE TAB 650 MG TABLET 1300 MG PO ×2 (08:46→17:04)
--- NOTE | 2023-07-10 09:36 | PM.PNNEP ---
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 hypotension on admission urinary retention evaluation to date: renal ultrasound pending urine electrolytes pre-renal urine eosinophils CPK normal moderate proteinuria holding irbesartan metabolic acidosis compensated with oral bicarbonate follow trend of repeat labs and UOP (2) Sepsis: Qualifiers: Sepsis acute organ dysfunction status: unspecified Sepsis type: sepsis due to unspecified organism Qualified Code(s): A41.9 - Sepsis, unspecified organism Code(s): A41.9 - Sepsis, unspecified organism Status: Acute Assessment and Plan: felt to be secondary to #3 positive blood cultures noted - MSSA follow repeat blood cultures (negative to date) wound culture with yeast and MSSA on IV antibiotics stable hemodynamics at this time continue current therapy (3) Cellulitis of scrotum: Code(s): N49.2 - Inflammatory disorders of scrotum Status: Acute Assessment and Plan: as noted by admission exam CT scan and scrotal U/S results noted Urology following s/p scrotal exploration, incision and drainage/debridement and wound packing (on 07/06) s/p scrotal debridement and placement of a wound VAC (on 07/08) on antibiotics WBC improving continue supportive therapy (4) Bacteremia: Code(s): R78.81 - Bacteremia Status: Acute Assessment and Plan: see #2 (5) HTN (hypertension): Code(s): I10 - Essential (primary) hypertension Status: Chronic Assessment and Plan: stable hemodynamics noted follow closely given #2 (6) Diabetes: Qualifiers: Diabetes mellitus type: type 2 Diabetes mellitus usp insulin use: without usp 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 Subjective Date/time seen: 07/10/23 09:36 Interval history: Follow-up for acute kidney injury/acute renal failure. Overall, appears to be doing reasonably well; renal function/creatinine as well as WBC seem to be improving; pain control seems adequate; continues to make good urine output; no other issues/events overnight or earlier this morning. Exam Narrative: General: large WD/WN male in NAD Heart: normal S1 and S2; no rub Lungs: coarse breath sounds Abdomen: soft, nontender, nondistended, positive bowel sounds; scrotal wound vac present Extremities: no cyanosis or clubbing; no edema Skin: no rash Objective Data Vital Signs Vital Signs: Vital Signs Temp Pulse Resp BP Pulse Ox O2 Del Method O2 Flow Rate 07/10/23 08:00 58 L 98 Nasal Cannula 2 07/10/23 08:46 58 L 07/10/23 05:02 98.0 F 56 L 16 167/66 H 98 07/10/23 04:00 59 L 07/10/23 00:00 61 07/09/23 20:00 69 07/09/23 21:36 97 Nasal Cannula 2 07/09/23 20:08 99 F 68 16 169/74 H 98 07/09/23 20:05 64 07/09/23 17:03 97.5 F L 67 18 171/66 H 100 Intake/Output Intake/Output: Intake & Output 07/07/23 07/08/23 07/09/23 07/10/23 23:59 23:59 23:59 23:59 Intake Total 1918 2735 3574 1490 Output Total 3700 2735 4800 1000 Balance -1782 0 -1226 490 Meds/Results Medications: Active Medications Generic Name Dose Route Start Last Admin Trade Name Freq PRN Reason Stop Dose A
--- NOTE | 2023-07-10 09:36 | P.PNNP_ITS ---
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 * relative hypotension on admission * urinary retention * evaluation to date: * renal ultrasound pending * urine electrolytes pre-renal * urine eosinophils * CPK normal * moderate proteinuria * holding irbesartan * metabolic acidosis compensated with oral bicarbonate * follow trend of repeat labs and UOP (2) Sepsis: Qualifiers: Sepsis acute organ dysfunction status: unspecified Sepsis type: sepsis due to unspecified organism Qualified Code(s): A41.9 - Sepsis, unspecified organism Code(s): A41.9 - Sepsis, unspecified organism Status: Acute Assessment and Plan: * felt to be secondary to #3 * positive blood cultures noted - MSSA * follow repeat blood cultures (negative to date) * wound culture with yeast and MSSA * on IV antibiotics * stable hemodynamics at this time * continue current therapy (3) Cellulitis of scrotum: Code(s): N49.2 - Inflammatory disorders of scrotum Status: Acute Assessment and Plan: * as noted by admission exam * CT scan and scrotal U/S results noted * Urology following * s/p scrotal exploration, incision and drainage/debridement and wound packing (on 07/06) * s/p scrotal debridement and placement of a wound VAC (on 07/08) * on antibiotics * WBC improving * continue supportive therapy (4) Bacteremia: Code(s): R78.81 - Bacteremia Status: Acute Assessment and Plan: * see #2 (5) HTN (hypertension): Code(s): I10 - Essential (primary) hypertension Status: Chronic Assessment and Plan: * stable hemodynamics noted * follow closely given #2 (6) Diabetes: Qualifiers: Diabetes mellitus type: type 2 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 Subjective Date/time seen: 07/10/23 09:36 Interval history: Follow-up for acute kidney injury/acute renal failure. Overall, appears to be doing reasonably well; renal function/creatinine as well as WBC seem to be improving; pain control seems adequate; continues to make good urine output; no other issues/events overnight or earlier this morning. Exam Narrative: General: large WD/WN male in NAD Heart: normal S1 and S2; no rub Lungs: coarse breath sounds Abdomen: soft, nontender, nondistended, positive bowel sounds; scrotal wound vac present Extremities: no cyanosis or clubbing; no edema Skin: no rash Objective Data Vital Signs Vital Signs: Vital Signs Temp Pulse Resp BP Pulse Ox O2 Del Method O2 Flow Rate 07/10/23 08:00 58 L 98 Nasal Cannula 2 07/10/23 08:46
--- NOTE | 2023-07-10 10:24 | WPDUROPN2 ---
Progress Note: A&P Assessment and Plan (1) Cellulitis of scrotum: Code(s): N49.2 - Inflammatory disorders of scrotum Status: Acute (2) Scrotal abscess: Code(s): N49.2 - Inflammatory disorders of scrotum Status: Acute Plan 07/06/2023 had scrotal exploration, debridement, I&D and wound packing 07/08/2023 had scrotal debridement and wound VAC placement Improvement in leukocytosis noted today Continue to monitor wound Continue payne catheter for now. Plan for removal/void trial prior to discharge Subjective Subjective Date/Time Seen: 07/10/23 10:24 Interval history: Doing well. No complaints. Payne draining clear yellow urine. Wound vac in place. WBX improved to 16.0. Creatinine 2.9. Review of Systems Review of Systems: All systems reviewed & are unremarkable except as noted in HPI and below Exam Narrative: General: Awake, alert, comfortable, no acute distress HEENT: Normocephalic, atraumatic, sclerae anicteric Respiratory: Normal respiratory effort, no accessory muscle use Abdomen: Nondistended, soft, nontender : Wound VAC in place Skin: Normal coloration, warm and dry Neurologic: No focal neuro deficits noted Psychiatric: Appropriate mood and affect, judgment and insight intact Objective Data Vital Signs Vital Signs: Vital Signs - 24 hr 07/09/23 10:40 07/09/23 17:03 07/09/23 12:05 Temperature 97.5 F L Pulse Rate 67 66 Respiratory Rate 18 18 Blood Pressure 171/66 H Pulse Oximetry 96 100 Oxygen Delivery Oxygen Flow Rate Fraction of Inspired Oxygen 07/09/23 16:05 07/09/23 20:05 07/09/23 20:08 Temperature 99 F Pulse Rate 66 64 68 Respiratory Rate 16 Blood Pressure 169/74 H Pulse Oximetry 98 Oxygen Delivery Oxygen Flow Rate Fraction of Inspired Oxygen 07/09/23 21:36 07/09/23 20:00 07/10/23 00:00 Temperature Pulse Rate 69 61 Respiratory Rate Blood Pressure Pulse Oximetry 97 Oxygen Delivery Nasal Cannula Oxygen Flow Rate 2 Fraction of Inspired Oxygen 07/10/23 04:00 07/10/23 05:02 07/10/23 08:46 Temperature 98.0 F Pulse Rate 59 L 56 L 58 L Respiratory Rate 16 Blood Pressure 167/66 H Pulse Oximetry 98 Oxygen Delivery Oxygen Flow Rate Fraction of Inspired Oxygen Intake/Output Intake/Output: Intake & Output 07/07/23 07/08/23 07/09/23 07/10/23 23:59 23:59 23:59 23:59 Intake Total 1918 2735 3574 700 Output Total 3700 2735 4800 900 Balance -1782 0 -1226 -200 Meds/Results Medications: Active Medications Generic Name Dose Route Start Last Admin Trade Name Freq PRN Reason Stop Dose Admin Acetaminophen 1,000 mg 07/09/23 19:00 07/10/23 06:15 Acetaminophen 500 Mg Tablet PO 1,000 mg Q6H DILEEP Administration Calcium Carbonate 200 mg 07/01/23 19:41 07/05/23 18:51 Calcium Carbonate (Tums) 500 Mg (200 Mg Elemental) PO 200 mg Q6H PRN Administration Indigestion Dextrose 12.5 gm 06/30/23 23:03 Dextrose 50% 25 Gm/50 Ml Syringe IV PUSH PRN PRN Hypoglycemia Protocol Furosemide 40 mg 07/07/23 09:00 Furosemide 40 Mg Tablet PO DAILY DILEEP Glucagon 1 mg 06/30/23 23:03 Glucagon For Inj 1 Mg Vial IM PRN PRN Hypoglycemia Protocol Glucose 15 gm 06/30/23 23:03 Glucose Oral Gel 15 Gm Of Glucse In 37.5 Gm Tube PO PRN PRN Hypoglycemia Protocol Heparin Sodium (Porcine) 4,500 units 07/05/23 21:16 07/07/23 20:56 Heparin Sodium 5,000 Units/Ml Vial IV PUSH 4,500 units PRN PRN Administration aPTT 55 - 70 seconds Heparin Sodium (Porcine) 9,000 units 07/05/23 21:16 07/09/23 16:29 Heparin Sodium 5,000 Units/Ml Vial IV PUSH 9,000 units PRN PRN Administration aPTT less than 55 seconds Hydromorphone HCl 1 mg 07/01/23 03:04 07/07/23 03:25 Hydromorphone Hcl Inj (*Crx) 1 Mg/Ml Syr IV PUSH 1 mg Q3H PRN Administration Pain Rated 7-10 Dextro
[2023-07-10 11:47] LABS: Glucose Point of Care 151 mg/dl (65-105)
[2023-07-10] MEDS: HYDROmorphone HCL INJ (*CRX) 1 MG/ML SYR IV PUSH (12:19)
--- NOTE | 2023-07-10 12:52 | WPDUROPN2 ---
Progress Note: A&P Assessment and Plan (1) Scrotal abscess: Code(s): N49.2 - Inflammatory disorders of scrotum Status: Acute Assessment and Plan: Wound is showing signs of early granulation without residual necrotic tissue I would favor switch to oral Levaquin 750 mg daily in the next 1-2 days. Will tentatively target possible discharge either Thursday following his next wound VAC change or Thursday. Will probably be best to arrange for home health care wound VAC changes 3 times weekly with follow-up in the outpatient wound VAC clinic every 2 weeks for bedside evaluation Subjective Subjective Date/Time Seen: 07/10/23 12:52 Interval history: Feeling better Review of Systems Review of Systems: All systems reviewed & are unremarkable except as noted in HPI and below Exam : Other: Scrotal wound exam During wound VAC change. There is minimal fibrinous exudate on the surface with evidence of early granulation tissue throughout extensive scrotal wound. No signs of additional necrotic material Objective Data Vital Signs Vital Signs: Vital Signs - 24 hr 07/09/23 17:03 07/09/23 16:05 07/09/23 20:05 Temperature 97.5 F L Pulse Rate 67 66 64 Respiratory Rate 18 Blood Pressure 171/66 H Pulse Oximetry 100 Oxygen Delivery Oxygen Flow Rate Fraction of Inspired Oxygen 07/09/23 20:08 07/09/23 21:36 07/09/23 20:00 Temperature 99 F Pulse Rate 68 69 Respiratory Rate 16 Blood Pressure 169/74 H Pulse Oximetry 98 97 Oxygen Delivery Nasal Cannula Oxygen Flow Rate 2 Fraction of Inspired Oxygen 28 07/10/23 00:00 07/10/23 04:00 07/10/23 05:02 Temperature 98.0 F Pulse Rate 61 59 L 56 L Respiratory Rate 16 Blood Pressure 167/66 H Pulse Oximetry 98 Oxygen Delivery Oxygen Flow Rate Fraction of Inspired Oxygen 07/10/23 08:46 07/10/23 08:00 Temperature Pulse Rate 58 L 58 L Respiratory Rate Blood Pressure Pulse Oximetry 98 Oxygen Delivery Nasal Cannula Oxygen Flow Rate 2 Fraction of Inspired Oxygen Intake/Output Intake/Output: Intake & Output 07/07/23 07/08/23 07/09/23 07/10/23 23:59 23:59 23:59 23:59 Intake Total 1918 2735 3574 1190 Output Total 3700 2735 4800 1000 Balance -1782 0 -1226 190 Meds/Results Medications: Active Medications Generic Name Dose Route Start Last Admin Trade Name Dimitrisq PRN Reason Stop Dose Admin Acetaminophen 1,000 mg 07/09/23 19:00 07/10/23 12:36 Acetaminophen 500 Mg Tablet PO 1,000 mg Q6H DILEEP Administration Calcium Carbonate 200 mg 07/01/23 19:41 07/05/23 18:51 Calcium Carbonate (Tums) 500 Mg (200 Mg Elemental) PO 200 mg Q6H PRN Administration Indigestion Dextrose 12.5 gm 06/30/23 23:03 Dextrose 50% 25 Gm/50 Ml Syringe IV PUSH PRN PRN Hypoglycemia Protocol Furosemide 40 mg 07/07/23 09:00 Furosemide 40 Mg Tablet PO DAILY DILEEP Glucagon 1 mg 06/30/23 23:03 Glucagon For Inj 1 Mg Vial IM PRN PRN Hypoglycemia Protocol Glucose 15 gm 06/30/23 23:03 Glucose Oral Gel 15 Gm Of Glucse In 37.5 Gm Tube PO PRN PRN Hypoglycemia Protocol Heparin Sodium (Porcine) 4,500 units 07/05/23 21:16 07/07/23 20:56 Heparin Sodium 5,000 Units/Ml Vial IV PUSH 4,500 units PRN PRN Administration aPTT 55 - 70 seconds Heparin Sodium (Porcine) 9,000 units 07/05/23 21:16 07/09/23 16:29 Heparin Sodium 5,000 Units/Ml Vial IV PUSH 9,000 units PRN PRN Administration aPTT less than 55 seconds Hydromorphone HCl 1 mg 07/01/23 03:04 07/10/23 12:19 Hydromorphone Hcl Inj (*Crx) 1 Mg/Ml Syr IV PUSH 1 mg Q3H PRN Administration Pain Rated 7-10 Dextrose 1,000 mls @ 100 mls/hr 06/30/23 23:03 Dextrose 5% 1,000 Ml IVPB PRN PRN Hypoglycemia Protocol Heparin Sodium/Dextrose 25,000 units in 250 mls @ 22 mls/hr 07/05/23 21:20 07/10/23 12:35 Heparin Sodium/D5w
--- NOTE | 2023-07-10 13:50 | PM.IMPN ---
Progress Note: A&P Assessment and Plan (1) Sepsis: Qualifiers: Sepsis acute organ dysfunction status: unspecified Sepsis type: sepsis due to unspecified organism Qualified Code(s): A41.9 - Sepsis, unspecified organism <Leisa Yuan - Last Filed: 07/10/23 14:45> Code(s): A41.9 - Sepsis, unspecified organism <Leisa Yuan, Student - Last Filed: 07/10/23 14:45> Status: Acute <Leisa Yuan, - Last Filed: 07/10/23 14:45> Assessment and Plan: Patient with sepsis present on admission with tachycardia, JOSE, leukocytosis and lactic acidosis. Sources cellulitis of the scrotum. BCx 06/30 growing methicillin sensitive Staph aureus. BCx 07/02 negative WCx 07/04 growing yeast and Staph aureus. Echo EF 60-65% with abnml diastolic dysfunction. No obvious vegetations Currently on Cefazolin and Flagyl WBC improving; no need for anti-fungal treatment at this time <Leisa Yuan, Student - Last Filed: 07/10/23 14:45> (2) Cellulitis of scrotum: Code(s): N49.2 - Inflammatory disorders of scrotum <Leisa Yuan, Student - Last Filed: 07/10/23 14:45> Status: Acute <Leisa Yuan - Last Filed: 07/10/23 14:45> Assessment and Plan: Pelvic CT 06/30 showing extensive scrotal skin thickening and reactive lymphadenopathy. Scrotal US 06/30 showed small bilateral hydroceles and extensive scrotal skin thickening Repeat scrotal US 07/04 showing severe scrotal edema with cellulitis, large volume simple right hydrocele and moderate volume complex left hydrocele Urology consulted. Appreciate their input. Patient taken for scrotal exploration, debridement and I&D on 07/06 with repeat debridement 07/08 Continue IV abx <Leisa Yuan, Student - Last Filed: 07/10/23 14:45> (3) Acute kidney injury: Code(s): N17.9 - Acute kidney failure, unspecified <Leisa E. Bobrowski, Student - Last Filed: 07/10/23 14:45> Status: Acute <Leisa Yuan, Student - Last Filed: 07/10/23 14:45> Assessment and Plan: Normal baseline Cr in 2021. Cr 1.2 on admission but climbed to 4.6. Probably related to sepsis. Renal US showing no hydronephrosis. Cr improving slowly to 3.1 He also has metabolic acidosis for which has been placed on oral bicarb. Nephrology consulted and appreciate their input. Excellent UOP. 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 The patient's blood glucose was reviewed on Glucose remains well controlled. Continue AccuCheks covering with sliding scale. Hypoglycemia protocol available as needed. Continue to follow <Leisa Yuan Student - Last Filed: 07/10/23 14:45> A1c 6.2. The patient's blood glucose was reviewed on 07/09 Glucose remains well controlled. Continue AccuCheks covering with sliding scale. Hypoglycemia protocol available as needed. Continue to follow <Wai Tripathi MD - Last Filed: 07/10/23 17:36> (5) (HFpEF) heart failure with preserved ejection fraction: Code(s): I50.30 - Unspecified diastolic (congestive) heart failure <Leisa Yuan Student - Last Filed: 07/10/23 14:45> Status: Acute <Leisa Yuan Student - Last Filed: 07/10/23 14:45> Assessmen
[2023-07-10 15:11] LABS: Partial Thromboplastin Time 84.3 SECONDS (22.3-36.8)
[2023-07-10 16:39] LABS: Glucose Point of Care 169 mg/dl (65-105)
[2023-07-10 18:46] LABS: Troponin I < 0.012 ng/mL (0.000-0.034)
[2023-07-10 21:26] LABS: Glucose Point of Care 129 mg/dl (65-105)
[2023-07-10] MEDS: CALCIUM CARBONATE (TUMS) 500 MG (200 MG ELEMENTAL) PO (21:58)
[2023-07-10] MEDS: ONDANSETRON INJ 4 MG/2 ML VIAL IV PUSH (23:19)
[2023-07-11] VITALS (14 sets, daily range): BP systolic 150–156; BP diastolic 68–73; PULSE 48–66; RESP 18–20; TEMP 36.1–36.8; O2SAT 92–97
--- NOTE | 2023-07-11 | ECG_ITS ---
Measurements Intervals [place] Rate: 57 P: 68 MA: 231 QRS: -75 QRSD: 164 T: 60 QT: 498 QTc: 485 Interpretive Statements SINUS BRADYCARDIA WITH FIRST DEGREE AV BLOCK LEFT BUNDLE BRANCH BLOCK ABNORMAL ECG COMPARED TO ECG 07/05/2023 19:46:35 SINUS BRADYCARDIA NOW PRESENT Electronically Signed On 07-11-2023 9:08:43 OCEAN LIFEGUARD SPECIALIST by Miguel Roach D.O.
[2023-07-11] MEDS: ACETAMINOPHEN 500 MG TABLET 1000 MG PO ×3 (00:07→18:25)
[2023-07-11] MEDS: HEPARIN SOD/D5W 100 UNITS/ML 25,000 UNITS/250 ML BAG 22 UNITS IV CONT ×2 (00:07→10:36)
[2023-07-11] MEDS: metroNIDAZOLE 500 MG/ISO 100ML 500 MG/100 ML BAG 100 MG IVPB ×3 (01:28→17:21)
[2023-07-11 05:39] LABS: Basophils Absolute Auto 0.1 K/mm3 (0.0-0.1); Basophils Percent Auto 0.8 % (0.2-1.2); Eosinophils Absolute Auto 0.5 K/mm3 (0-0.3); Eosinophils Percent Auto 2.7 % (0-4.4); Hematocrit 34.2 % (42.0-52.0); Hemoglobin 10.5 g/dL (14.0-18.0); Immature Granulocyte Percent A 8.5 % (0-0.5); Lymphocytes Absolute Auto 1.72 K/mm3 (0.9-3.2); Lymphocytes Percent Auto 9.7 % (18.3-44.2); Mean Corpuscular HGB Conc 30.7 g/dl (32-36); Mean Corpuscular Hemoglobin 27.9 pg (26-34); Mean Corpuscular Volume 90.7 fl (80-100); Mean Platelet Volume 9.4 fl (7.4-10.4); Monocytes Absolute Auto 1.3 K/mm3 (0.1-0.6); Monocytes Percent Auto 7.6 % (2.6-8.5); Neutrophils Absolute Auto 12.5 K/mm3 (1.3-6.7); Neutrophils Percent Auto 70.7 % (45.5-73.1); Platelet Count Result 271 k/mm3 (150-375); Red Blood Count 3.77 M/mm3 (4.6-6.20); Red Cell Distribution Width 15.9 % (11.5-14.5); White Blood Count 17.7 K/mm3 (4.5-10.0)
[2023-07-11 05:50] LABS: Anion Gap 5 mmol/L (8-16); Blood Urea Nitrogen 29 mg/dL (9-20); Calcium 7.8 mg/dL (8.4-10.2); Carbon Dioxide 27 mmol/L (22-30); Chloride 108 mmol/L (98-107); Estimated CRCL calculation 54 ml/min; Estimated Glomerular Filt Rate 28; Glucose 127 mg/dL (65-110); Potassium 3.4 mmol/L (3.4-5.0); Sodium 140 mmol/L (137-145)
[2023-07-11 05:51] LABS: Partial Thromboplastin Time 71.9 SECONDS (22.3-36.8)
--- NOTE | 2023-07-11 05:57 | P.PNCROSS_ITS ---
Event Note Event Note Event Note: Nursing staff call that around 01:30 as the patient was having persistent vomit ing. Patient's chart was reviewed he has QT prolongation telemetry and safe continuing Zofran let alone adding 2nd line antiemetics. Nursing staff had reported multiple episodes of projectile vomiting and reported that the emesis appeared to be bilious in nature. However I was later informed the patient had also drank some soda. Given that the patient has had a prolonged hospital stay I was concerned about possible direction. I checked a KUB which was difficult to interpret due to the patient's body habitus. I subsequently ordered a stat CT of the abdomen and pelvis without contrast. Imaging was reviewed I did not appreciate any obvious bowel obstruction but I was waiting urologic interpretation. The patient was made NPO given his symptoms. The patient admitted to eating a large amount of that his daughter had brought for him. He reports that that was the 1st meal hit he for the day. I went and of turned from the CT scan as I did not make it to his room prior to him going down. Patient's abdominal exam was relatively benign. He did have some few scattered bowel sounds in the periumbilical region. No obvious organomegaly. Abdomen was otherwise soft and nontender. Patient does have wound VAC present in applied to his peritoneal region. Patient has been afebrile and vital signs are stable. 30 minute spent in critical care activities. Due to a high probability of clinically significant, life threatening deterioration, the patient required my highest level of preparedness to intervene emergently and I personally spent this critical care time directly and personally managing the patient. This critical care time included obtaining a history; examining the patient; pulse oximetry; ordering and review of studies; arranging urgent treatment with development of a management plan; evaluation of patient's response to treatment; frequent reassessment; and discussions with other providers. It was exclusive of separately billable procedures and treating other patients and teaching time. Please see Assessment and Plan section and the rest of the note for further information on patient assessment and treatment.
[2023-07-11] MEDS: ceFAZolin 2 GM/D5W 50 ML 2 GM/50 ML BAG IVPB ×3 (06:06→21:06)
[2023-07-11] MEDS: ROSUVASTATIN 10 MG TABLET 20 MG PO (08:39)
[2023-07-11] MEDS: SACCHAROMYCES BOULARDII 250 MG CAPSULE PO ×3 (08:39→17:20)
[2023-07-11] MEDS: METOPROLOL TARTRATE 50 MG TAB 100 MG PO (08:40)
[2023-07-11] MEDS: SODIUM BICARBONATE TAB 650 MG TABLET 1300 MG PO (08:40)
[2023-07-11 08:51] LABS: Glucose Point of Care 112 mg/dl (65-105)
--- NOTE | 2023-07-11 10:16 | PM.IMPN ---
Progress Note: A&P Assessment and Plan (1) Vomiting: Code(s): R11.10 - Vomiting, unspecified <Leisa Yuan, Student - Last Filed: 07/11/23 14:25> Status: Acute <Leisa Yuan, Student - Last Filed: 07/11/23 14:25> Assessment and Plan: Patient with episode of nausea and vomiting last night after eating a large dinner with soda Denies further vomiting, nausea, or abdominal bloating after initial episode KUB shows gaseous bubble in stomach; concerning for possible gastric outlet syndrome vs. gastroparesis CT a/p without contrast showed no acute findings in the abdomen or pelvis Start Protonix <Leisa Yuan, Student - Last Filed: 07/11/23 14:25> Patient with episode of nausea and vomiting last night after eating a large dinner with soda Denies further vomiting, nausea, or abdominal bloating after initial episode KUB shows gaseous bubble in stomach; concerning for possible gastric outlet syndrome vs. gastroparesis CT a/p without contrast showed no acute findings in the abdomen or pelvis Start Protonix Had recurent episode about 1.5hrs after eating full liquid diet. Phenergan ordered. Advance PPI and make IV. Follow - may need GI input. Check Lipase <Wai Tripathi MD - Last Filed: 07/11/23 16:34> (2) Sepsis: Qualifiers: Sepsis acute organ dysfunction status: unspecified Sepsis type: sepsis due to unspecified organism Qualified Code(s): A41.9 - Sepsis, unspecified organism <Leisa Yuan, Student - Last Filed: 07/11/23 14:25> Code(s): A41.9 - Sepsis, unspecified organism <Leisa Yuan Student - Last Filed: 07/11/23 14:25> Status: Acute <Leisa Yuan, Student - Last Filed: 07/11/23 14:25> Assessment and Plan: Patient with sepsis present on admission with tachycardia, JOSE, leukocytosis and lactic acidosis. Sources cellulitis of the scrotum. BCx 2/ growing methicillin sensitive Staph aureus. BCx 07/02 negative WCx 07/04 growing yeast and Staph aureus. Echo EF 60-65% with abnml diastolic dysfunction. No obvious vegetations Continue IV Cefazolin and Flagyl No need for anti-fungal treatment at this time WBC with mild increase overnight; 16 --> 17.7 Will continue to monitor <Leisa Yuan Student - Last Filed: 07/11/23 14:25> Patient with sepsis present on admission with tachycardia, JOSE, leukocytosis and lactic acidosis. Sources cellulitis of the scrotum. BCx 06/30 growing methicillin sensitive Staph aureus. BCx 07/02 negative WCx 07/04 growing yeast and Staph aureus. Echo EF 60-65% with abnml diastolic dysfunction. No obvious vegetations Continue IV Cefazolin and Flagyl No need for anti-fungal treatment at this time WBC with mild increase overnight; 16 --> 17.7 felt related to acute nausea/vomiting Will continue to monitor <Wai Tripathi MD - Last Filed: 07/11/23 16:34> (3) Cellulitis of scrotum: Code(s): N49.2 - Inflammatory disorders of scrotum <Leisa Yuan Student - Last Filed: 07/11/23 14:25> Status: Acute <Leisa Yuan Student - Last Filed: 07/11/23 14:25> Assessment and Plan: Pelvic CT 06/30 showing extensive scrotal skin thickening and reactive lymphadenopathy. Scrotal US 06/30 showed small bilateral hydroceles and extensive scrotal skin thickening Repeat scrotal US 07/04 showing severe scrotal edema with cellulitis, large volume simple right hydrocele and moderate volume complex left hydrocele Urology consulted. Appreciate their input. Patient taken for scrotal exploration, debridement and I&D on 07/06 with repeat debridement 07/08 Per Urology recommendations, patient will switch to PO Levaquin before discharge Patient had episode of vomiting on the evening of 07/09, will continue IV abx until ensured he does not have further risk of vomiting Continue IV abx Plan for PT/OT before discharge <Leisa Yuan Student - Last Filed:
--- NOTE | 2023-07-11 10:46 | P.PNNP_ITS ---
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 admission * urinary retention * evaluation to date: * renal ultrasound pending * urine electrolytes pre-renal * urine eosinophils * CPK normal * moderate proteinuria * holding irbesartan * metabolic acidosis compensated with oral bicarbonate * follow trend of repeat labs and UOP (2) Sepsis: Qualifiers: Sepsis acute organ dysfunction status: unspecified Sepsis type: sepsis due to unspecified organism Qualified Code(s): A41.9 - Sepsis, unspecified organism Code(s): A41.9 - Sepsis, unspecified organism Status: Acute Assessment and Plan: * felt to be secondary to #3 * positive blood cultures noted - MSSA * follow repeat blood cultures (negative to date) * wound culture with yeast and MSSA * on IV antibiotics * stable hemodynamics at this time * continue current therapy (3) Cellulitis of scrotum: Code(s): N49.2 - Inflammatory disorders of scrotum Status: Acute Assessment and Plan: * as noted by admission exam * CT scan and scrotal U/S results noted * Urology following * s/p scrotal exploration, incision and drainage/debridement and wound packing (on 07/06) * s/p scrotal debridement and placement of a wound VAC (on 07/08) * on antibiotics * WBC improving * continue supportive therapy (4) Bacteremia: Code(s): R78.81 - Bacteremia Status: Acute Assessment and Plan: * see #2 (5) HTN (hypertension): Code(s): I10 - Essential (primary) hypertension Status: Chronic Assessment and Plan: * stable hemodynamics noted * follow closely given #2 (6) Vomiting: Code(s): R11.10 - Vomiting, unspecified Status: Acute Assessment and Plan: * as noted by events overnight * imaging noted: * KUB with gaseous bubble in stomach; possible gastric outlet syndrome vs. 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 Subjective Date/time seen: 07/11/23 10:46 Interval history: Follow-up for acute kidney injury/acute renal failure. Events/issues noted overnight -- significant nausea/vomiting after eating dinner -- imaging results noted and started on IV PPI as well as IV antiemetics; in spite of this, continues to make reasonable urine output with ongoing improvement in renal function; no apparent distress voiced at this time. Exam Narrative: General: large WD/WN male in NAD Heart: normal S1 and S2; no rub Lungs: coarse breath sounds
--- NOTE | 2023-07-11 10:46 | PM.PNNEP ---
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 urinary retention evaluation to date: renal ultrasound pending urine electrolytes pre-renal urine eosinophils CPK normal moderate proteinuria holding irbesartan metabolic acidosis compensated with oral bicarbonate follow trend of repeat labs and UOP (2) Sepsis: Qualifiers: Sepsis acute organ dysfunction status: unspecified Sepsis type: sepsis due to unspecified organism Qualified Code(s): A41.9 - Sepsis, unspecified organism Code(s): A41.9 - Sepsis, unspecified organism Status: Acute Assessment and Plan: felt to be secondary to #3 positive blood cultures noted - MSSA follow repeat blood cultures (negative to date) wound culture with yeast and MSSA on IV antibiotics stable hemodynamics at this time continue current therapy (3) Cellulitis of scrotum: Code(s): N49.2 - Inflammatory disorders of scrotum Status: Acute Assessment and Plan: as noted by admission exam CT scan and scrotal U/S results noted Urology following s/p scrotal exploration, incision and drainage/debridement and wound packing (on 07/06) s/p scrotal debridement and placement of a wound VAC (on 07/08) on antibiotics WBC improving continue supportive therapy (4) Bacteremia: Code(s): R78.81 - Bacteremia Status: Acute Assessment and Plan: see #2 (5) HTN (hypertension): Code(s): I10 - Essential (primary) hypertension Status: Chronic Assessment and Plan: stable hemodynamics noted follow closely given #2 (6) Vomiting: Code(s): R11.10 - Vomiting, unspecified Status: Acute Assessment and Plan: as noted by events overnight imaging noted: KUB with gaseous bubble in stomach; possible gastric outlet syndrome vs. gastroparesis(?) CT of abd/pelvis without contrast showed no acute findings on IV PPI and antiemetics follow symptoms (7) Diabetes: Qualifiers: Diabetes mellitus type: type 2 Diabetes mellitus alf insulin use: without termite helper 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 Subjective Date/time seen: 07/11/23 10:46 Interval history: Follow-up for acute kidney injury/acute renal failure. Events/issues noted overnight -- significant nausea/vomiting after eating dinner -- imaging results noted and started on IV PPI as well as IV antiemetics; in spite of this, continues to make reasonable urine output with ongoing improvement in renal function; no apparent distress voiced at this time. Exam Narrative: General: large WD/WN male in NAD Heart: normal S1 and S2; no rub Lungs: coarse breath sounds Abdomen: soft, nontender, nondistended, positive bowel sounds; scrotal wound vac present Extremities: no cyanosis or clubbing; no edema Skin: no nodules Objective Data Vital Signs Vital Signs: Vital Signs Temp Pulse Resp BP Pulse Ox O2 Del Method O2 Flow Rate 07/11/23 08:00 95 Nasal Cannula 2 07/11/23 08:00 58 L 07/11/23 08:40 58 L 07/11/23 08:16 95 Nasal Cannula 1.5 07/10/23 22:10 62 97 Autopap 07/11/23 04:43 97 F L 61 20 153/73 H 93 07/11/23 04:00 57 L 07/11/23 00:00 63 0
[2023-07-11 12:33] LABS: Glucose Point of Care 109 mg/dl (65-105)
[2023-07-11] MEDS: CALCIUM CARBONATE (TUMS) 500 MG (200 MG ELEMENTAL) PO (12:35)
[2023-07-11] MEDS: PANTOPRAZOLE SODIUM IV 40 MG VIAL IV PUSH ×2 (15:31→21:06)
[2023-07-11] MEDS: PROMETHAZINE HCL 25 MG/ML AMPUL IM (15:31)
[2023-07-11] MEDS: SODIUM BICARBONATE TAB 650 MG TABLET PO (17:21)
[2023-07-11 17:34] LABS: Glucose Point of Care 94 mg/dl (65-105)
[2023-07-11] MEDS: ENOXAPARIN 40 MG/0.4 ML SYRINGE SUB-Q (21:06)
[2023-07-11 21:20] LABS: Glucose Point of Care 143 mg/dl (65-105)
[2023-07-12] VITALS (15 sets, daily range): BP systolic 156–176; BP diastolic 62–79; PULSE 49–62; RESP 18–20; TEMP 36.2–36.3; O2SAT 95–99
[2023-07-12] MEDS: metroNIDAZOLE 500 MG/ISO 100ML 500 MG/100 ML BAG 100 MG IVPB ×3 (02:07→17:01)
[2023-07-12] MEDS: LEVOTHYROXINE SODIUM 75 MCG TABLET PO (05:19)
[2023-07-12] MEDS: ceFAZolin 2 GM/D5W 50 ML 2 GM/50 ML BAG IVPB ×3 (05:19→21:27)
[2023-07-12] MEDS: ACETAMINOPHEN 500 MG TABLET 1000 MG PO ×3 (05:19→18:42)
[2023-07-12 05:26] LABS: Hematocrit 34.5 % (42.0-52.0); Hemoglobin 10.5 g/dL (14.0-18.0); Mean Corpuscular HGB Conc 30.4 g/dl (32-36); Mean Corpuscular Hemoglobin 27.9 pg (26-34); Mean Corpuscular Volume 91.8 fl (80-100); Mean Platelet Volume 9.5 fl (7.4-10.4); Platelet Count Result 262 k/mm3 (150-375); Red Blood Count 3.76 M/mm3 (4.6-6.20); Red Cell Distribution Width 16.2 % (11.5-14.5); White Blood Count 12.6 K/mm3 (4.5-10.0)
[2023-07-12 05:43] LABS: Alanine Aminotransferase 7 U/L (6-50); Albumin Level 2.8 g/dL (3.5-5.1); Alkaline Phosphatase 93 U/L (38-126); Anion Gap 4 mmol/L (8-16); Aspartate Amino Transferase 24 U/L (17-59); Bilirubin,Total 0.3 mg/dL (0.2-1.3); Blood Urea Nitrogen 27 mg/dL (9-20); Calcium 8.3 mg/dL (8.4-10.2); Carbon Dioxide 31 mmol/L (22-30); Chloride 108 mmol/L (98-107); Estimated CRCL calculation 58 ml/min; Estimated Glomerular Filt Rate 31; Glucose 109 mg/dL (65-110); Lipase 1067 U/L (23-300); Phosphorus 5.3 mg/dL (2.5-4.5); Potassium 3.6 mmol/L (3.4-5.0); Sodium 143 mmol/L (137-145)
[2023-07-12 05:56] LABS: Band Neutrophils Percent 7 % (0-6); Eosinophils Absolute Manual 0.63 K/mm3 (0.02-0.5); Eosinophils Percent Manual 5 % (0-4); Lymphocytes Absolute Manual 2.52 K/mm3 (1.1-4.5); Monocytes Absolute Manual 0.75 K/mm3 (0.1-0.90); Monocytes Percent Manual 6 % (3-9); Neutrophils Absolute Manual 8.69 K/mm3 (1.3-6.7); Neutrophils Percent Manual 62 % (46-73); Total Cells Counted 100
[2023-07-12 05:57] LABS: Hypochromasia 1+ (NORMAL); Platelet Estimate Adequate (Adequate); Schistocytes None Seen (NORMAL)
[2023-07-12 08:49] LABS: Glucose Point of Care 89 mg/dl (65-105)
[2023-07-12] MEDS: ENOXAPARIN 40 MG/0.4 ML SYRINGE SUB-Q ×2 (09:56→21:27)
[2023-07-12] MEDS: SACCHAROMYCES BOULARDII 250 MG CAPSULE PO ×3 (09:56→17:00)
[2023-07-12] MEDS: SODIUM BICARBONATE TAB 650 MG TABLET PO ×2 (09:57→17:00)
[2023-07-12] MEDS: METOPROLOL TARTRATE 50 MG TAB 100 MG PO (09:57)
[2023-07-12] MEDS: ROSUVASTATIN 10 MG TABLET 20 MG PO (09:57)
[2023-07-12] MEDS: PANTOPRAZOLE SODIUM IV 40 MG VIAL IV PUSH ×2 (09:58→21:26)
--- NOTE | 2023-07-12 10:11 | PM.IMPN ---
Progress Note: A&P Assessment and Plan (1) Vomiting: Code(s): R11.10 - Vomiting, unspecified <Leisa Yuan Student - Last Filed: 07/12/23 13:55> Status: Acute <Leisa Yuan Student - Last Filed: 07/12/23 13:55> Assessment and Plan: Patient with episode of nausea and vomiting last night after eating a large dinner with soda Denies further vomiting, nausea, or abdominal bloating after initial episode KUB shows gaseous bubble in stomach; concerning for possible gastric outlet syndrome vs. gastroparesis CT a/p without contrast showed no acute findings in the abdomen or pelvis Had recurrent episode about 1.5hrs after eating full liquid diet on 07/10. Phenergan and IV PPI ordered. Continue IV PPI Lipase was elevated at 1067; patient continues to deny abdominal pain and CT abd/pelvis showed no acute findings Repeat lipase Follow - may need GI input if patient continues vomiting <Leisa Yuan Student - Last Filed: 07/12/23 13:55> Patient with episode of nausea and vomiting in the evening of 07/09 after eating a large dinner with soda KUB shows gaseous bubble in stomach; concerning for possible gastric outlet syndrome vs. gastroparesis CT a/p without contrast showed no acute findings in the abdomen or pelvis Had recurrent episode about 1.5hrs after eating full liquid diet on 07/10. Phenergan and IV PPI ordered. Continue IV PPI Lipase was elevated at 1067 today; patient continues to deny abdominal pain and CT abd/pelvis showed no acute findings Repeat lipase Follow - may need GI input if patient continues vomiting <Wai Tripathi MD - Last Filed: 07/12/23 17:05> (2) Sepsis: Qualifiers: Sepsis acute organ dysfunction status: unspecified Sepsis type: sepsis due to unspecified organism Qualified Code(s): A41.9 - Sepsis, unspecified organism <Leisa Yuan Student - Last Filed: 07/12/23 13:55> Code(s): A41.9 - Sepsis, unspecified organism <Leisa Yuan Student - Last Filed: 07/12/23 13:55> Status: Acute <Leisa Yuan Student - Last Filed: 07/12/23 13:55> Assessment and Plan: Patient with sepsis present on admission with tachycardia, JOSE, leukocytosis and lactic acidosis. Sources cellulitis of the scrotum. BCx 2/ growing methicillin sensitive Staph aureus. BCx 2/ negative WCx 2 growing yeast and Staph aureus. Echo EF 60-65% with abnml diastolic dysfunction. No obvious vegetations Continue IV Cefazolin and Flagyl No need for anti-fungal treatment at this time WBC downtrending today; 17.7 --> 12.6, likely back on trend of his infectious course Will continue to monitor <Leisa Yuan, Student - Last Filed: 07/12/23 13:55> Patient with sepsis present on admission with tachycardia, JOSE, leukocytosis and lactic acidosis. Source is the cellulitis of the scrotum. BCx 2/ growing methicillin sensitive Staph aureus. BCx 2/22 negative WCx 07/04 growing yeast and Staph aureus. Echo EF 60-65% with abnml diastolic dysfunction. No obvious vegetations Continue IV Cefazolin and Flagyl No need for anti-fungal treatment at this time WBC downtrending today; 17.7 --> 12.6 but band count slightly elevated, likely back on trend of his infectious course Will continue to monitor <Wai Tripathi MD - Last Filed: 07/12/23 17:05> (3) Cellulitis of scrotum: Code(s): N49.2 - Inflammatory disorders of scrotum <Leisa Yuan Student - Last Filed: 07/12/23 13:55> Status: Acute <Leisa Yuan Student - Last Filed: 07/12/23 13:55> Assessment and Plan: Pelvic CT 06/30 showing extensive scrotal skin thickening and reactive lymphadenopathy. Scrotal US 06/30 showed small bilateral hydroceles and extensive scrotal skin thickening Repeat scrotal US 07/04 showing severe scrotal edema with cellulitis, large volume simple right hydrocele and moderate volume complex left hydrocele Urol
--- NOTE | 2023-07-12 11:52 | P.PNNP_ITS ---
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 admission * urinary retention * evaluation to date: * renal ultrasound pending * urine electrolytes pre-renal * urine eosinophils * CPK normal * moderate proteinuria * ARB on hold at this time * metabolic acidosis compensated with oral bicarbonate - will start to wean * follow trend of repeat labs and UOP (2) Sepsis: Qualifiers: Sepsis acute organ dysfunction status: unspecified Sepsis type: sepsis due to unspecified organism Qualified Code(s): A41.9 - Sepsis, unspecified organism Code(s): A41.9 - Sepsis, unspecified organism Status: Acute Assessment and Plan: * felt to be secondary to #3 * positive blood cultures noted - MSSA * follow repeat blood cultures (negative to date) * wound culture with yeast and MSSA * on IV antibiotics * stable hemodynamics at this time * continue current therapy (3) Cellulitis of scrotum: Code(s): N49.2 - Inflammatory disorders of scrotum Status: Acute Assessment and Plan: * as noted by admission exam * CT scan and scrotal U/S results noted * Urology following * s/p scrotal exploration, incision and drainage/debridement and wound packing (on 07/06) * s/p scrotal debridement and placement of a wound VAC (on 07/08) * on antibiotics * WBC improving * continue supportive therapy (4) Bacteremia: Code(s): R78.81 - Bacteremia Status: Acute Assessment and Plan: * see #2 (5) HTN (hypertension): Code(s): I10 - Essential (primary) hypertension Status: Chronic Assessment and Plan: * stable hemodynamics noted * follow closely given #2 (6) Vomiting: Code(s): R11.10 - Vomiting, unspecified Status: Acute Assessment and Plan: * as noted by events overnight * imaging noted: * KUB with gaseous bubble in stomach; possible gastric outlet syndrome vs. 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 Subjective Date/time seen: 07/12/23 11:52 Interval history: Follow-up for acute kidney injury/acute renal failure. Appears to be doing relatively well; renal function/creatinine continue to improve with current interventions/therapy; pain control seems adequate; no further nausea/vomiting voiced at this time - tolerated oral intake; no other events overnight or earlier this morning. Exam Narrative: General: large WD/WN male in NAD Heart: normal S1 and S2; no rub Lungs: coarse breath joe
--- NOTE | 2023-07-12 11:52 | PM.PNNEP ---
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 urinary retention evaluation to date: renal ultrasound pending urine electrolytes pre-renal urine eosinophils CPK normal moderate proteinuria ARB on hold at this time metabolic acidosis compensated with oral bicarbonate - will start to wean follow trend of repeat labs and UOP (2) Sepsis: Qualifiers: Sepsis acute organ dysfunction status: unspecified Sepsis type: sepsis due to unspecified organism Qualified Code(s): A41.9 - Sepsis, unspecified organism Code(s): A41.9 - Sepsis, unspecified organism Status: Acute Assessment and Plan: felt to be secondary to #3 positive blood cultures noted - MSSA follow repeat blood cultures (negative to date) wound culture with yeast and MSSA on IV antibiotics stable hemodynamics at this time continue current therapy (3) Cellulitis of scrotum: Code(s): N49.2 - Inflammatory disorders of scrotum Status: Acute Assessment and Plan: as noted by admission exam CT scan and scrotal U/S results noted Urology following s/p scrotal exploration, incision and drainage/debridement and wound packing (on 07/06) s/p scrotal debridement and placement of a wound VAC (on 07/08) on antibiotics WBC improving continue supportive therapy (4) Bacteremia: Code(s): R78.81 - Bacteremia Status: Acute Assessment and Plan: see #2 (5) HTN (hypertension): Code(s): I10 - Essential (primary) hypertension Status: Chronic Assessment and Plan: stable hemodynamics noted follow closely given #2 (6) Vomiting: Code(s): R11.10 - Vomiting, unspecified Status: Acute Assessment and Plan: as noted by events overnight imaging noted: KUB with gaseous bubble in stomach; possible gastric outlet syndrome vs. 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 Subjective Date/time seen: 07/12/23 11:52 Interval history: Follow-up for acute kidney injury/acute renal failure. Appears to be doing relatively well; renal function/creatinine continue to improve with current interventions/therapy; pain control seems adequate; no further nausea/vomiting voiced at this time - tolerated oral intake; no other events overnight or earlier this morning. Exam Narrative: General: large WD/WN male in NAD Heart: normal S1 and S2; no rub Lungs: coarse breath sounds Abdomen: soft, nontender, nondistended, positive bowel sounds; scrotal wound vac present Extremities: no cyanosis or clubbing; no edema Skin: Warm and dry Objective Data Vital Signs Vital Signs: Vital Signs Temp Pulse Resp BP Pulse Ox O2 Del Method O2 Flow Rate 07/12/23 11:40 58 L 07/12/23 10:00 57 L 96 Nasal Cannula 2 07/12/23 10:00 49 L 07/12/23 09:57 57 L 07/12/23 07:52 96 Nasal Cannula 2 07/12/23 05:50 62 96 Autopap 07/12/23 04:50 97.2 F L 55 L 18 156/79 H 99 07/12/23 04
[2023-07-12 12:48] LABS: Glucose Point of Care 111 mg/dl (65-105)
[2023-07-12 17:16] LABS: Glucose Point of Care 104 mg/dl (65-105)
[2023-07-12 21:16] LABS: Glucose Point of Care 120 mg/dl (65-105)
[2023-07-12] MEDS: SODIUM CHLORIDE 0.9% INJ 10 ML (21:27)
[2023-07-12] MEDS: SODIUM CHLORIDE 0.9% IV 250 ML (21:38)
[2023-07-13] VITALS (17 sets, daily range): BP systolic 139–186; BP diastolic 65–75; PULSE 52–62; RESP 16–20; TEMP 36.1–37; O2SAT 92–97
[2023-07-13] MEDS: metroNIDAZOLE 500 MG/ISO 100ML 500 MG/100 ML BAG 100 MG IVPB ×2 (01:32→09:31)
[2023-07-13] MEDS: LEVOTHYROXINE SODIUM 75 MCG TABLET PO (05:38)
[2023-07-13] MEDS: ceFAZolin 2 GM/D5W 50 ML 2 GM/50 ML BAG IVPB ×2 (05:46→14:57)
[2023-07-13 05:56] LABS: Basophils Absolute Auto 0.1 K/mm3 (0.0-0.1); Basophils Percent Auto 0.6 % (0.2-1.2); Eosinophils Absolute Auto 0.4 K/mm3 (0-0.3); Eosinophils Percent Auto 3.1 % (0-4.4); Immature Granulocyte Percent A 4.3 % (0-0.5); Lymphocytes Absolute Auto 2.06 K/mm3 (0.9-3.2); Lymphocytes Percent Auto 17.7 % (18.3-44.2); Mean Corpuscular HGB Conc 30.3 g/dl (32-36); Mean Corpuscular Hemoglobin 27.5 pg (26-34); Mean Corpuscular Volume 90.9 fl (80-100); Mean Platelet Volume 9.6 fl (7.4-10.4); Monocytes Percent Auto 8.2 % (2.6-8.5); Neutrophils Absolute Auto 7.7 K/mm3 (1.3-6.7); Neutrophils Percent Auto 66.1 % (45.5-73.1); Platelet Count Result 241 k/mm3 (150-375); Red Blood Count 3.63 M/mm3 (4.6-6.20); Red Cell Distribution Width 16.1 % (11.5-14.5); White Blood Count 11.7 K/mm3 (4.5-10.0)
[2023-07-13 06:12] LABS: Alanine Aminotransferase 6 U/L (6-50); Albumin Level 2.8 g/dL (3.5-5.1); Alkaline Phosphatase 84 U/L (38-126); Anion Gap 4 mmol/L (8-16); Aspartate Amino Transferase 22 U/L (17-59); Bilirubin,Total 0.3 mg/dL (0.2-1.3); Blood Urea Nitrogen 24 mg/dL (9-20); Calcium 8.1 mg/dL (8.4-10.2); Carbon Dioxide 29 mmol/L (22-30); Chloride 107 mmol/L (98-107); Estimated CRCL calculation 64 ml/min; Estimated Glomerular Filt Rate 34; Glucose 109 mg/dL (65-110); Lipase 1481 U/L (23-300); Magnesium 1.9 mg/dL (1.6-2.3); Phosphorus 4.9 mg/dL (2.5-4.5); Potassium 3.5 mmol/L (3.4-5.0); Sodium 140 mmol/L (137-145)
[2023-07-13 08:00] LABS: Cholesterol 68 mg/dL (0-200); HDL Direct 19 mg/dL; Triglycerides 206 mg/dL (<150)
[2023-07-13 08:10] LABS: LDL Cholesterol Direct 35 mg/dL
[2023-07-13 08:45] LABS: Glucose Point of Care 93 mg/dl (65-105)
[2023-07-13] MEDS: PANTOPRAZOLE SODIUM IV 40 MG VIAL IV PUSH ×2 (09:30→20:21)
[2023-07-13] MEDS: ROSUVASTATIN 10 MG TABLET 20 MG PO (09:30)
[2023-07-13] MEDS: METOPROLOL TARTRATE 50 MG TAB 100 MG PO ×2 (09:30→20:20)
[2023-07-13] MEDS: ENOXAPARIN 40 MG/0.4 ML SYRINGE SUB-Q ×2 (09:31→20:20)
[2023-07-13] MEDS: SACCHAROMYCES BOULARDII 250 MG CAPSULE PO ×3 (09:31→17:14)
--- NOTE | 2023-07-13 12:03 | PM.PNNEP ---
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 urinary retention evaluation to date: renal ultrasound pending urine electrolytes pre-renal urine eosinophils CPK normal moderate proteinuria ARB on hold at this time -- possible restart once renal function stabilizes metabolic acidosis resolved -- off sodium bicarbonate follow trend of repeat labs and UOP (2) Sepsis: Qualifiers: Sepsis acute organ dysfunction status: unspecified Sepsis type: sepsis due to unspecified organism Qualified Code(s): A41.9 - Sepsis, unspecified organism Code(s): A41.9 - Sepsis, unspecified organism Status: Acute Assessment and Plan: felt to be secondary to #3 positive blood cultures noted - MSSA follow repeat blood cultures (negative to date) wound culture with yeast and MSSA on IV antibiotics stable hemodynamics at this time continue current therapy (3) Cellulitis of scrotum: Code(s): N49.2 - Inflammatory disorders of scrotum Status: Acute Assessment and Plan: as noted by admission exam CT scan and scrotal U/S results noted Urology following s/p scrotal exploration, incision and drainage/debridement and wound packing (on 07/06) s/p scrotal debridement and placement of a wound VAC (on 07/08) on antibiotics WBC improving continue supportive therapy (4) Bacteremia: Code(s): R78.81 - Bacteremia Status: Acute Assessment and Plan: see #2 (5) HTN (hypertension): Code(s): I10 - Essential (primary) hypertension Status: Chronic Assessment and Plan: stable hemodynamics noted follow closely given #2 (6) Vomiting: Code(s): R11.10 - Vomiting, unspecified Status: Acute Assessment and Plan: as noted by events overnight imaging noted: KUB with gaseous bubble in stomach; possible gastric outlet syndrome vs. 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 Subjective Date/time seen: 07/13/23 12:03 Interval history: Follow-up for acute kidney injury/acute renal failure. Continues to make slow and steady improvement -- renal function/creatinine, WBC, and pain control all appear to be improving in general; good urine output noted; no issues/events overnight or earlier this morning; no apparent distress to report. Exam Narrative: General: large WD/WN male in NAD Heart: normal S1 and S2; no rub Lungs: coarse breath sounds Abdomen: soft, nontender, nondistended, positive bowel sounds; scrotal wound vac present Extremities: no cyanosis or clubbing; no edema Skin: Warm and intact Objective Data Vital Signs Vital Signs: Vital Signs Temp Pulse Resp BP Pulse Ox O2 Del Method FiO2 07/13/23 09:30 56 L 07/13/23 07:53 92 Room Air 21 07/13/23 07:42 94 Room Air 21 07/13/23 05:49 97 Autopap 07/13/23 05:48 96.9 F L 58 L 20 177/65 H 97 07/13/23 04:00 52 L 07/13/23 0
--- NOTE | 2023-07-13 12:03 | P.PNNP_ITS ---
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 * urinary retention * evaluation to date: * renal ultrasound pending * urine electrolytes pre-renal * urine eosinophils * CPK normal * moderate proteinuria * ARB on hold at this time -- possible restart once renal function stabilizes * metabolic acidosis resolved -- off sodium bicarbonate * follow trend of repeat labs and UOP (2) Sepsis: Qualifiers: Sepsis acute organ dysfunction status: unspecified Sepsis type: sepsis due to unspecified organism Qualified Code(s): A41.9 - Sepsis, unspecified organism Code(s): A41.9 - Sepsis, unspecified organism Status: Acute Assessment and Plan: * felt to be secondary to #3 * positive blood cultures noted - MSSA * follow repeat blood cultures (negative to date) * wound culture with yeast and MSSA * on IV antibiotics * stable hemodynamics at this time * continue current therapy (3) Cellulitis of scrotum: Code(s): N49.2 - Inflammatory disorders of scrotum Status: Acute Assessment and Plan: * as noted by admission exam * CT scan and scrotal U/S results noted * Urology following * s/p scrotal exploration, incision and drainage/debridement and wound packing (on 07/06) * s/p scrotal debridement and placement of a wound VAC (on 07/08) * on antibiotics * WBC improving * continue supportive therapy (4) Bacteremia: Code(s): R78.81 - Bacteremia Status: Acute Assessment and Plan: * see #2 (5) HTN (hypertension): Code(s): I10 - Essential (primary) hypertension Status: Chronic Assessment and Plan: * stable hemodynamics noted * follow closely given #2 (6) Vomiting: Code(s): R11.10 - Vomiting, unspecified Status: Acute Assessment and Plan: * as noted by events overnight * imaging noted: * KUB with gaseous bubble in stomach; possible gastric outlet syndrome vs. gastroparesis(?) * CT of abd/pelvis without contrast showed no acute findings * on IV PPI and antiemetics * follow symptoms (7) Diabetes: Qualifiers: Diabetes mellitus type: type 2 Diabetes mellitus snf insulin use: without snf use Diabetes mellitus complication status: without complication Qualified Code(s): E11.9 - Type 2 diabetes mellitus without complications Code(s): E11.9 - Type 2 diabetes mellitus without complications Status: Acute Assessment and Plan: * follow accu-cheks * glycemic control per hospitalists Not much else to really add -- will continue to follow from a distance. Subjective Date/time seen: 07/13/23 12:03 Interval history: Follow-up for acute kidney injury/acute renal failure. Continues to make slow and steady improvement -- renal function/creatinine, WBC, and pain control all appear to be improving in general; good urine output noted; no issues/events overnight or earlier this morning; no apparent distress to r eport. Exam Narrative: General: large WD/WN male in NAD Heart: norm
[2023-07-13 12:19] LABS: Glucose Point of Care 111 mg/dl (65-105)
[2023-07-13] MEDS: HYDROmorphone HCL INJ (*CRX) 1 MG/ML SYR IV PUSH (12:26)
--- NOTE | 2023-07-13 12:44 | WPDUROPN2 ---
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 Okay to remove Benz Subjective Subjective Date/Time Seen: 07/13/23 12:44 Interval history: wound VAC in place. He is clinically improving okay to remove Benz for voiding Exam Narrative: no acute distress obese Benz catheter with clear yellow urine back in place Objective Data Vital Signs Vital Signs: Vital Signs - 24 hr 07/12/23 14:00 07/12/23 16:00 07/12/23 21:26 Temperature 97.3 F L Pulse Rate 58 L 56 L 50 L Respiratory Rate 18 Blood Pressure 176/71 H Pulse Oximetry 97 Oxygen Delivery Fraction of Inspired Oxygen 07/12/23 21:30 07/12/23 20:00 07/12/23 20:00 Temperature 97.3 F L Pulse Rate 55 L 59 L Respiratory Rate 20 Blood Pressure 164/62 H Pulse Oximetry 96 96 Oxygen Delivery CPAP Fraction of Inspired Oxygen 07/12/23 23:17 07/13/23 00:00 07/13/23 02:55 Temperature Pulse Rate 53 L Respiratory Rate Blood Pressure Pulse Oximetry 95 96 Oxygen Delivery Autopap Autopap Fraction of Inspired Oxygen 07/13/23 04:00 07/13/23 05:48 07/13/23 05:49 Temperature 96.9 F L Pulse Rate 52 L 58 L Respiratory Rate 20 Blood Pressure 177/65 H Pulse Oximetry 97 97 Oxygen Delivery Autopap Fraction of Inspired Oxygen 07/13/23 07:42 07/13/23 07:53 07/13/23 09:30 Temperature Pulse Rate 56 L Respiratory Rate Blood Pressure Pulse Oximetry 94 92 Oxygen Delivery Room Air Room Air Fraction of Inspired Oxygen 21 21 Intake/Output Intake/Output: Intake & Output 07/10/23 07/11/23 07/12/23 07/13/23 23:59 23:59 23:59 23:59 Intake Total 2480 1800 3570 600 Output Total 2850 3475 2150 1000 Balance -370 -5531 1420 -400 Meds/Results Medications: Active Medications Generic Name Dose Route Start Last Admin Trade Name Freq PRN Reason Stop Dose Admin Acetaminophen 1,000 mg 07/09/23 19:00 07/13/23 09:29 Acetaminophen 500 Mg Tablet PO Not Given Q6H DILEEP Calcium Carbonate 200 mg 07/01/23 19:41 07/11/23 12:35 Calcium Carbonate (Tums) 500 Mg (200 Mg Elemental) PO 200 mg Q6H PRN Administration Indigestion Dextrose 12.5 gm 06/30/23 23:03 Dextrose 50% 25 Gm/50 Ml Syringe IV PUSH PRN PRN Hypoglycemia Protocol Enoxaparin Sodium 40 mg 07/11/23 21:00 07/13/23 09:31 Enoxaparin 40 Mg/0.4 Ml Syringe SUB-Q 40 mg Q12HR DILEEP Administration Furosemide 40 mg 07/07/23 09:00 Furosemide 40 Mg Tablet PO DAILY DILEEP Glucagon 1 mg 06/30/23 23:03 Glucagon For Inj 1 Mg Vial IM PRN PRN Hypoglycemia Protocol Glucose 15 gm 06/30/23 23:03 Glucose Oral Gel 15 Gm Of Glucse In 37.5 Gm Tube PO PRN PRN Hypoglycemia Protocol Hydromorphone HCl 1 mg 07/01/23 03:04 07/13/23 12:26 Hydromorphone Hcl Inj (*Crx) 1 Mg/Ml Syr IV PUSH 1 mg Q3H PRN Administration Pain Rated 7-10 Dextrose 1,000 mls @ 100 mls/hr 06/30/23 23:03 Dextrose 5% 1,000 Ml IVPB PRN PRN Hypoglycemia Protocol Metronidazole 500 mg in 100 mls @ 100 mls/hr 07/08/23 18:00 07/13/23 09:31 Flagyl 500 Mg/Iso Soln 100 Ml IVPB 100 mls/hr Q8H DILEEP Administration Cefazolin Sodium 2 gm in 50 mls @ 100 mls/hr 07/09/23 13:00 07/13/23 05:46 Ancef 2 Gm/D5w 50 Ml IVPB 100 mls/hr Q8HR DILEEP Administration Insulin Aspart 3 - 6 units 07/07/23 08:00 07/13/23 12:19 Insulin Aspart (*Bkc) 100 Units/Ml SUB-Q Not Given TIDWM [facility] Protocol Insulin Aspart 1 - 3 units 07/07/23 21:00 07/12/23 21:25 Insulin Aspart (*Bkc) 100 Units/Ml SUB-Q Not Given HS [facility] Protocol Levothyroxine Sodium 75 mcg 07/01/23 06:30 03/04/24 05:38 Levothyroxine Sodium 75 Mcg Tablet PO 75 mcg DAILY@0630 DILEEP Administration Metoprolol Ta
[2023-07-13] MEDS: ACETAMINOPHEN 500 MG TABLET 1000 MG PO (13:23)
--- NOTE | 2023-07-13 14:26 | PM.IMPN ---
Progress Note: A&P Assessment and Plan (1) Vomiting: Code(s): R11.10 - Vomiting, unspecified Status: Acute Assessment and Plan: Patient with episode of nausea and vomiting in the evening of 07/09 after eating a large dinner with soda KUB shows gaseous bubble in stomach; concerning for possible gastric outlet syndrome vs. gastroparesis CT a/p without contrast showed no acute findings in the abdomen or pelvis Had recurrent episode about 1.5hrs after eating full liquid diet on 07/10. Phenergan and IV PPI ordered. Continue IV PPI Lipase was elevated at 1067and higher on repeat; patient denies abdominal pain and CT abd/pelvis showed no acute findings Consider related to meds vs GB sludge; penetrating ulcer less likely. Trend lipase. Check RUQ US. TG 206. Follow - may need GI input if lipase continues to climb (2) Sepsis: Qualifiers: Sepsis acute organ dysfunction status: unspecified Sepsis type: sepsis due to unspecified organism Qualified Code(s): A41.9 - Sepsis, unspecified organism Code(s): A41.9 - Sepsis, unspecified organism Status: Acute Assessment and Plan: Patient with sepsis present on admission with tachycardia, JOSE, leukocytosis and lactic acidosis. Source is the cellulitis of the scrotum. BCx 06/30 growing methicillin sensitive Staph aureus. BCx 07/02 negative WCx 07/04 growing yeast and Staph aureus. Echo EF 60-65% with abnml diastolic dysfunction. No obvious vegetations Continue IV Cefazolin and Flagyl No need for anti-fungal treatment at this time WBC downtrending today Will continue to monitor (3) Cellulitis of scrotum: Code(s): N49.2 - Inflammatory disorders of scrotum Status: Acute Assessment and Plan: Pelvic CT 06/30 showing extensive scrotal skin thickening and reactive lymphadenopathy. Scrotal US 06/30 showed small bilateral hydroceles and extensive scrotal skin thickening Repeat scrotal US 07/04 showing severe scrotal edema with cellulitis, large volume simple right hydrocele and moderate volume complex left hydrocele Urology consulted. Appreciate their input. Patient taken for scrotal exploration, debridement and I&D on 07/06 with repeat debridement 07/08 Per Urology recommendations, patient will switch to PO Levaquin before discharge Patient had episode of vomiting on the evening of 07/09 and 07/10 afternoon, will continue IV abx until ensured he does not have further risk of vomiting. Continue IV abx Discussed with urology who recommended PT/OT for bed to chair mobility. Okay to removed Benz. (4) Acute kidney injury: Code(s): N17.9 - Acute kidney failure, unspecified Status: Acute Assessment and Plan: Normal baseline Cr in 2021. Cr 1.2 on admission but climbed to 4.6. Probably related to sepsis. Renal US showing no hydronephrosis. Cr improving slowly; Cr now 2.1 Nephrology consulted and appreciate their input. 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 The patient's blood glucose was reviewed on 07/12 Glucose remains well controlled. Continue AccuCheks covering with sliding scale. Hypoglycemia protocol available as needed. Continue to follow (6) (HFpEF) heart failure with preserved ejection fraction: Code(s): I50.30 - Unspecified diastolic (congestive) heart failure Status: Acute Assessment and Plan: Patient with hx of chronic diastolic CHF. Echo EF 60-65% with abnml diastolic dysfunction. No obvious vegetations Mild edema but not overtly fluid overloaded. CXR reviewed showing LLL airspace diseas
[2023-07-13] MEDS: amLODIPine BESYLATE 5 MG TABLET PO (15:03)
[2023-07-13] MEDS: ACETAMINOPHEN 325 MG TABLET 650 MG PO (17:14)
[2023-07-13] MEDS: levoFLOXacin 750 MG TABLET PO (17:14)
[2023-07-13 17:28] LABS: Glucose Point of Care 95 mg/dl (65-105)
[2023-07-14] VITALS (7 sets, daily range): BP systolic 153–177; BP diastolic 66–68; PULSE 54–67; RESP 17–18; TEMP 36.6; O2SAT 89–96
[2023-07-14] MEDS: LEVOTHYROXINE SODIUM 75 MCG TABLET PO (06:00)
[2023-07-14 06:24] LABS: Basophils Absolute Auto 0.1 K/mm3 (0.0-0.1); Basophils Percent Auto 0.7 % (0.2-1.2); Eosinophils Absolute Auto 0.3 K/mm3 (0-0.3); Eosinophils Percent Auto 2.7 % (0-4.4); Hematocrit 35.9 % (42.0-52.0); Hemoglobin 10.6 g/dL (14.0-18.0); Immature Granulocyte Absolute 0.24 K/mm3 (0.00-0.031); Lymphocytes Absolute Auto 1.86 K/mm3 (0.9-3.2); Lymphocytes Percent Auto 15.4 % (18.3-44.2); Mean Corpuscular HGB Conc 29.5 g/dl (32-36); Mean Corpuscular Hemoglobin 27.5 pg (26-34); Monocytes Absolute Auto 0.8 K/mm3 (0.1-0.6); Monocytes Percent Auto 6.9 % (2.6-8.5); Neutrophils Absolute Auto 8.7 K/mm3 (1.3-6.7); Neutrophils Percent Auto 72.3 % (45.5-73.1); Platelet Count Result 290 k/mm3 (150-375); Red Blood Count 3.86 M/mm3 (4.6-6.20); Red Cell Distribution Width 16.2 % (11.5-14.5); White Blood Count 12.1 K/mm3 (4.5-10.0)
[2023-07-14 06:36] LABS: Alanine Aminotransferase 7 U/L (6-50); Albumin Level 3.1 g/dL (3.5-5.1); Alkaline Phosphatase 85 U/L (38-126); Anion Gap 7 mmol/L (8-16); Aspartate Amino Transferase 26 U/L (17-59); Bilirubin,Total 0.4 mg/dL (0.2-1.3); Blood Urea Nitrogen 22 mg/dL (9-20); Calcium 8.4 mg/dL (8.4-10.2); Carbon Dioxide 31 mmol/L (22-30); Chloride 104 mmol/L (98-107); Estimated CRCL calculation 67 ml/min; Estimated Glomerular Filt Rate 36; Glucose 101 mg/dL (65-110); Magnesium 1.8 mg/dL (1.6-2.3); Potassium 3.5 mmol/L (3.4-5.0); Sodium 142 mmol/L (137-145)
[2023-07-14 07:10] LABS: Glucose Point of Care 110 mg/dl (65-105)
[2023-07-14 07:29] LABS: Lipase 1437 U/L (23-300)
[2023-07-14 08:25] LABS: Glucose Point of Care 104 mg/dl (65-105)
--- NOTE | 2023-07-14 09:37 | WPDUROPN2 ---
Progress Note: A&P Assessment and Plan (1) Scrotal abscess: Code(s): N49.2 - Inflammatory disorders of scrotum Status: Acute Assessment and Plan: 07/06/2023 had scrotal exploration, debridement, I&D and wound packing 07/08/2023 had scrotal debridement and wound VAC placement 07/13/2023 Benz catheter removed, patient voiding well Overall clinically improved, leukocytosis greatly improved and he remains afebrile Home Health has been arranged for wound VAC care Will plan for outpatient follow-up in the wound clinic every 2 weeks for evaluation Subjective Subjective Date/Time Seen: 07/14/23 09:37 Interval history: Riaz reports feeling improved. Pain is well controlled. he has been up in out of bed, ambulating around his room without difficulty. His Benz was removed yesterday, he reports voiding large volumes without difficulty. Denies nausea, vomiting, fever, chills. Review of Systems Review of Systems: All systems reviewed & are unremarkable except as noted in HPI and below Exam Narrative: General: Awake, alert, comfortable, no acute distress HEENT: Normocephalic, atraumatic, sclerae anicteric Respiratory: Normal respiratory effort, no accessory muscle use Abdomen: Nondistended, soft, nontender : Wound VAC in place Skin: Normal coloration, warm and dry Neurologic: No focal neuro deficits noted Psychiatric: Appropriate mood and affect, judgment and insight intact Objective Data Vital Signs Vital Signs: Vital Signs - 24 hr 07/13/23 14:00 07/13/23 15:03 07/13/23 12:00 Temperature 98.6 F Pulse Rate 61 62 Respiratory Rate 20 Blood Pressure 186/75 H Pulse Oximetry 93 Oxygen Delivery 07/13/23 16:00 07/13/23 20:20 07/13/23 20:00 Temperature Pulse Rate 56 L 62 60 Respiratory Rate Blood Pressure Pulse Oximetry Oxygen Delivery 07/14/23 00:00 07/13/23 23:00 07/14/23 00:35 Temperature Pulse Rate 58 L Respiratory Rate Blood Pressure Pulse Oximetry 96 96 Oxygen Delivery Autopap Autopap 07/14/23 04:00 07/13/23 22:00 07/14/23 06:00 Temperature 98.0 F 97.9 F Pulse Rate 54 L 61 57 L Respiratory Rate 16 18 Blood Pressure 139/73 153/66 H Pulse Oximetry 93 95 Oxygen Delivery Intake/Output Intake/Output: Intake & Output 07/11/23 07/12/23 07/13/23 07/14/23 23:59 23:59 23:59 23:59 Intake Total 1800 3570 1150 480 Output Total 3475 2150 2725 1145 Balance -1677 0595 -5222 -227 Meds/Results Medications: Active Medications Generic Name Dose Route Start Last Admin Trade Name Freq PRN Reason Stop Dose Admin Acetaminophen 650 mg 07/13/23 14:40 07/13/23 17:14 Acetaminophen 325 Mg Tablet PO 650 mg Q6H PRN Administration Mild Pain (1-3) or Fever Amlodipine Besylate 5 mg 07/13/23 14:45 07/13/23 15:03 Amlodipine Besylate 5 Mg Tablet PO 5 mg QAM DILEEP Administration Calcium Carbonate 200 mg 07/01/23 19:41 07/11/23 12:35 Calcium Carbonate (Tums) 500 Mg (200 Mg Elemental) PO 200 mg Q6H PRN Administration Indigestion Dextrose 12.5 gm 06/30/23 23:03 Dextrose 50% 25 Gm/50 Ml Syringe IV PUSH PRN PRN Hypoglycemia Protocol Enoxaparin Sodium 40 mg 07/11/23 21:00 07/13/23 20:20 Enoxaparin 40 Mg/0.4 Ml Syringe SUB-Q 40 mg Q12HR DILEEP Administration Furosemide 40 mg 07/07/23 09:00 Furosemide 40 Mg Tablet PO DAILY DILEEP Glucagon 1 mg 06/30/23 23:03 Glucagon For Inj 1 Mg Vial IM PRN PRN Hypoglycemia Protocol Glucose 15 gm 06/30/23 23:03 Glucose Oral Gel 15 Gm Of Glucse In 37.5 Gm Tube PO PRN PRN Hypoglycemia Protocol Hydromorphone HCl 1 mg 07/01/23 03:04 07/13/23 12:26 Hydromorphone Hcl Inj (*Crx) 1 Mg/Ml Syr IV PUSH 1 mg Q3H PRN Administration Pain Rated 7-10 Dextrose 1,000 mls @ 100 mls/hr 06/30/23 23:03 Dextrose 5% 1,000 Ml IVPB PRN PRN Hypoglycemia Pr
[2023-07-14] MEDS: amLODIPine BESYLATE 5 MG TABLET PO (10:09)
[2023-07-14] MEDS: METOPROLOL TARTRATE 50 MG TAB 100 MG PO (10:09)
[2023-07-14] MEDS: ROSUVASTATIN 10 MG TABLET 20 MG PO (10:10)
[2023-07-14] MEDS: SACCHAROMYCES BOULARDII 250 MG CAPSULE PO ×2 (10:10→12:23)
[2023-07-14] MEDS: PANTOPRAZOLE SODIUM IV 40 MG VIAL IV PUSH (10:10)
[2023-07-14] MEDS: ENOXAPARIN 40 MG/0.4 ML SYRINGE SUB-Q (10:12)
--- NOTE | 2023-07-14 10:33 | PM.DS ---
DS: Admitting Diagnosis Discharge Date 07/14/23 Admitting Diagnosis Scrotal swelling. DS: Discharge Diagnosis Discharge Diagnosis (1) Sepsis: Qualifiers: Sepsis acute organ dysfunction status: unspecified Sepsis type: sepsis due to unspecified organism Qualified Code(s): A41.9 - Sepsis, unspecified organism Code(s): A41.9 - Sepsis, unspecified organism Status: Acute (2) Cellulitis of scrotum: Code(s): N49.2 - Inflammatory disorders of scrotum Status: Acute (3) Acute kidney injury: Code(s): N17.9 - Acute kidney failure, unspecified Status: Acute (4) Vomiting: Code(s): R11.10 - Vomiting, unspecified Status: Acute (5) Diabetes: Qualifiers: Diabetes mellitus complication status: without complication Diabetes mellitus care home insulin use: without care home use Diabetes mellitus type: type 2 Qualified Code(s): E11.9 - Type 2 diabetes mellitus without complications Code(s): E11.9 - Type 2 diabetes mellitus without complications Status: Acute (6) (HFpEF) heart failure with preserved ejection fraction: Code(s): I50.30 - Unspecified diastolic (congestive) heart failure Status: Acute (7) Obstructive sleep apnea on CPAP: Code(s): G47.33 - Obstructive sleep apnea (adult) (pediatric); Z99.89 - Dependence on other enabling machines and devices Status: Acute (8) Obesity hypoventilation syndrome: Code(s): E66.2 - Morbid (severe) obesity with alveolar hypoventilation Status: Acute (9) Urinary retention: Code(s): R33.9 - Retention of urine, unspecified Status: Acute (10) Hydrocele, bilateral: Code(s): N43.3 - Hydrocele, unspecified Status: Acute (11) Hyponatremia: Code(s): E87.1 - Hypo-osmolality and hyponatremia Status: Acute (12) Bacteremia: Code(s): R78.81 - Bacteremia Status: Acute (13) Elevated d-dimer: Code(s): R79.89 - Other specified abnormal findings of blood chemistry Status: Acute (14) Acute respiratory failure with hypoxia and hypercarbia: Code(s): J96.01 - Acute respiratory failure with hypoxia; J96.02 - Acute respiratory failure with hypercapnia Status: Acute (15) Bilateral knee pain: Code(s): M25.561 - Pain in right knee; M25.562 - Pain in left knee Status: Acute (16) HTN (hypertension): Code(s): I10 - Essential (primary) hypertension Status: Acute DS: Summary Hospital Course Reason for hospitalization: 47yo male with HTN, DM, LEA and obesity here for scrotal swelling. Please see H&P for details. Hospital Course: Patient with sepsis present on admission with tachycardia, JOSE, leukocytosis and lactic acidosis. Source is the cellulitis of the scrotum. BCx 06/30 growing methicillin sensitive Staph aureus. Repeat BCx 07/02 negative. WCx 07/04 growing yeast and Staph aureus. Echo EF 60-65% with abnml diastolic dysfunction. No obvious vegetations. Treated with broad spectrum abx and narrowed once culture results known. Change to oral levofloxacin close to discharge. Pelvic CT 06/30 showing extensive scrotal skin thickening and reactive lymphadenopathy. Scrotal US 06/30 showed small bilateral hydroceles and extensive scrotal skin thickening. Repeat scrotal US 07/04 showing severe scrotal edema with cellulitis, large volume simple right hydrocele and moderate volume complex left hydrocele. Urology consulted and appreciate their input. Patient was taken for scrotal exploration, debridement and I&D on 07/06 with repeat debridement 07/08. Discussed with urology who recommended PT/OT for bed to chair mobility. Benz removed and patient voiding normally. Patient with a normal baseline Cr in 2021. Cr 1.2 on admission but climbed to 4.6. Probably related to sepsis. Renal US showing no hydronephrosis. Cr improving slowly; Cr now 2. Nephrology consulted and appreciate their input. Patient with episode of nause
[2023-07-14 12:07] LABS: Glucose Point of Care 97 mg/dl (65-105)
--- NOTE | 2023-07-16 09:40 | PC.NURSE ---
Received message from HH regarding pain medication for dressing changes and for drug interactions on 07/14. Spoke with Dr. Tripathi. Dr. Tripathi said to have HH call Urology for pain medication and pt PCP for drug interactions. Attempted to call HH without answer. Checked phone # and it is correct.
--- NOTE | 2023-07-16 09:44 | PC.NURSE ---
Attempted to contact HH with information regarding pt. No answer. Recording states unable to accept call at this time.
== END 2023-07-14 16:39 | disposition home health service (06) | DRG 720 ==
LOC: ANHED 23:03 → ANH3MEDSUR 07-01 00:08 → ANH3MED 07-01 00:08 → ANHIMU 07-06 17:33 → ANH3MED 07-08 17:51
PROVIDERS: Internal Medicine; Internal Medicine Infectious Disease; Internal Medicine Nephrology; Nurse Practitioner Family; Physician Assistant; Urology; Admitting Provider Internal Medicine; Emergency Provider Physician Assistant; PCP Emergency Medicine; Visit Provider Internal Medicine
PROC: 0V950ZZ Drainage of Scrotum, Open Approach (ICD-10-PCS; CPT 54700; principal; 2023-07-06 16:00)
PROC: 0HB9XZZ Excision of Perineum Skin, External Approach (ICD-10-PCS; CPT 54700; principal; 2023-07-08 07:30)
DX: A41.01 Sepsis due to Methicillin susceptible Staphylococcus aureus (principal); J96.01 Acute respiratory failure with hypoxia; N49.2 Inflammatory disorders of scrotum; E87.1 Hypo-osmolality and hyponatremia; N17.9 Acute kidney failure, unspecified; E66.2 Morbid (severe) obesity with alveolar hypoventilation; Z68.43 Body mass index [BMI] 50.0-59.9, adult; N49.3 Fournier gangrene; I44.7 Left bundle-branch block, unspecified; I11.0 Hypertensive heart disease with heart failure; I50.32 Chronic diastolic (congestive) heart failure; N43.3 Hydrocele, unspecified; R33.9 Retention of urine, unspecified; R07.9 Chest pain, unspecified; E87.20 Acidosis, unspecified; R79.89 Other specified abnormal findings of blood chemistry; R11.10 Vomiting, unspecified; E11.9 Type 2 diabetes mellitus without complications; E78.5 Hyperlipidemia, unspecified; E03.9 Hypothyroidism, unspecified; M17.9 Osteoarthritis of knee, unspecified
CPT/HCPCS: 36415; 36600; 71045; 72193; 74018; 74176; 76705; 76775; 76870; 80048; 80053; 80061; 80069; 80202; 81001; 81050; 82010; 82550; 82565; 82570; 82805; 82948; 83036; 83605; 83690; 83735; 83880; 84100; 84156; 84300; 84484; 84540; 85025; 85027; 85380; 85610; 85730; 85999; 86140; 86706; 87040; 87070; 87181; 87205; 87340; 88304; 93005; 93970; 93976; 94003; 96361; 96365; 96366; 96367; 96375; 96376; 97161; 99285; A9270; C8929; C9113; G0378; J0690; J0696; J1100; J1170; J1644; J1650; J1836; J1940; J2185; J2270; J2405; J2550; J2700; J2704; J3010; J3370; J7030; J7050; J7120; Q9957; Q9967

== ENCOUNTER 2023-09-23 07:20 | Outpatient (RCR) | payer BC, SELFPAY ==
[2023-07-29 09:00] VITALS: BMI 57.9
== END 2023-10-27 23:59 | disposition home or self-care (01) ==
LOC: ANHWOC 07:20
PROVIDERS: PCP Emergency Medicine; Visit Provider Urology
DX: Z48.817 Encounter for surgical aftercare following surgery on the skin and subcutaneous tissue (principal); S31.30XD Unspecified open wound of scrotum and testes, subsequent encounter
CPT/HCPCS: 99212; 99213; 99214; G0463